=== PATIENT | female | born 1965 | race African-American/Black ===

== ENCOUNTER 2017-09-23 04:47 | Inpatient (IN) | payer MEDICARE, OTHER ==
[~2017-09-23] VITALS: Ht 165.1 cm; Wt 158.8 kg
[2017-09-23] MEDS ORDERED: Morphine Sulfate 2mg/ml Inj(IV/IM USE ONLY) IVP ONE (05:00)
[2017-09-23] MEDS ORDERED: Pantoprazole Inj IV ONE (05:00)
[2017-09-23] MEDS ORDERED: HYDRALAZINE HCL10 MG ORAL (05:04)
[2017-09-23] MEDS ORDERED: ACETAMINOPHEN325 M1 ORAL (05:04)
[2017-09-23] MEDS ORDERED: HUMALOG100 UNIT/4 SUBQ (05:09)
[2017-09-23] MEDS ORDERED: ZONEGRAN100 MG ORAL (05:09)
[2017-09-23] MEDS ORDERED: NORCO 5-325 TA1 EACH ORAL (05:09)
[2017-09-23] MEDS ORDERED: LEVETIRACETAM750 MG ORAL (05:09)
[2017-09-23] MEDS ORDERED: ZOFRAN4 M3 ORAL (05:09)
--- NOTE | 2017-09-23 05:20 | Emergency Room Report ---
History of Present Illness General Chief Complaint: Vomiting Source: Patient, EMS Present Illness HPI Patient was discharged from the hospital for right femur fracture. She was at [facility] and apparently had coffee-ground emesis at this evening. Paramedics were summoned. The patient denies any chest pain, abdominal pain. She denies melena hematochezia. She states she's not sure if she is anemic. She has previous ulcers. According to her records she does have a history of anemia - September 21 hgb was 8.1. There is some handwritten note suggesting pulmonary embolus however we cannot find if she is on anticoagulation at this time and this is doubtful. The patient is a diabetic on insulin. The patient complains about pain in her right hip area. Pain reported 10/10, aching, worse with movement, radiation towards knee and also towards back. Morbidly obese. Allergies: Coded Allergies: No Known Allergies (Verified , 11/20/06) Patient History Past Medical History: see triage record Social History: Denies: smoking Social History Narrative [facility] Reviewed Nursing Documentation: PMH: Agreed; PSxH: Agreed Nursing Documentation-PMH Hx Hypertension: Yes Hx Diabetes: Yes Hx Seizures: Yes Review of Systems All Other Systems: negative except mentioned in HPI Physical Exam Vital Signs Date Time Temp Pulse Resp B/P (MAP) Pulse Ox O2 Delivery O2 Flow Rate FiO2 09/23/17 04:48 98.4 86 16 128/72 98 Room Air 98.4 Sp02 EP Interpretation: reviewed, normal General Appearance: no apparent distress, obese, Chronically Ill Head: normocephalic Eyes: bilateral eye PERRL, bilateral eye conjunctivae pale ENT: moist mucus membranes Neck: supple Respiratory: lungs clear, normal breath sounds Cardiovascular #1: edema - bilat Cardiovascular #2: 2+ radial (R) Gastrointestinal: normal bowel sounds, non tender, overweight Genitourinary: no CVA tenderness Musculoskeletal: no calf tenderness, tender - R hip area Neurologic: alert, DTRs symmetric, no Babinski, motor weakness, oriented - X2 Psychiatric: depressed affect Skin: normal inspection, warm/dry Medical Decision Making Diagnostic Impression: Primary Impression: Upper gastrointestinal bleed Additional Impressions: Morbid obesity UTI (urinary tract infection) Qualified Codes: N39.0 - Urinary tract infection, site not specified ER Course Patient presents with coffee-ground emesis and pallor. Differential includes upper GI bleed, gastritis, ulcer, esophagitis amongst others. The patient is quite pale but not tachycardic. Patient was evaluated with EKG, chest x-ray and labs. She'll be treated with Zofran and Protonix. She'll also receive gentle IV hydration. She will also be treated for pain in her hip. EKG without injury. CXR no infiltrates. CBC with leukocytosis and anemia ( though higher than prior). CMP essentially unremarkable. UA with pyuria. Patient treated with gentle hydration. No need for emergent transfusion. Antibiotics requested to be ordered by PMD. Pain improved. No more vomiting. Admit med Dr. Dietrich. Laboratory Tests Test 09/23/17 05:18 09/23/17 05:58 09/24/17 03:37 White Blood Count 17.0 K/UL (4.8-10.8) H 21.1 K/UL (4.8-10.8) H Red Blood Count 3.49 M/UL (4.20-5.40) L 3.36 M/UL (4.20-5.40) L Hemoglobin 9.5 G/DL (12.0-16.0) L 8.9 G/DL (12.0-16.0) L Hematocrit 30.3 % (37.0-47.0) L 29.3 % (37.0-47.0) L Mean Corpuscular Volume 87 FL (80-99) 87 FL (80-99) Mean Corpuscular Hemoglobin 27.2 PG (27.0-31.0) 26.5 PG (27.0-31.0) L Mean Corpuscular Hemoglobin Concent 31.4 G/DL (32.0-36.0) L 30.4 G/DL (32.0-36.0) L Red Cell Distribution Width 13.0 % (11.6-14.8) 13.3 % (11.6-14.8) Platelet Count 425 K/UL (150-450) 370 K/UL (150-450) Mean Platelet Volume 5.0 FL (6.5-10.1) L 5.0 FL (6.5-10.1) L Neutrophils (%) (Auto) % (45.0-75.0) % (45.0-75.0) Lymphocytes (%) (Auto) % (20.0-45.0) % (20.0-45.0) Monocytes (%) (Auto) % (1.0-10.0) % (1.0-10.0) Eosinophils (%) (Auto) % (0.0-3.0) % (0.0-3.0) Basophils (%) (Auto) % (0.0-2.0) % (0.0-2.0) Prothrombin Time 11.9 SEC (9.30-11.50) H Prothrombin Time INR 1.1 (0.9-1.1) PTT 29 SEC (23-33) Sodium Level 139 MMOL/L (136-145) 139 MMOL/L (136-145) Potassium Level 3.6 MMOL/L (3.5-5.1) 3.3 MMOL/L (3.5-5.1) L Chloride Level 100 MMOL/L (98-107) 101 MMOL/L (98-107) Carbon Dioxide Level 31 MMOL/L (21-32) 30 MMOL/L (21-32) Anion Gap 8 mmol/L (5-15) 8 mmol/L (5-15) Blood Urea Nitrogen 10 mg/dL (7-18) 10 mg/dL (7-18) Creatinine 0.7 MG/DL (0.55-1.30) 0.6 MG/DL (0.55-1.30) Estimate Glomerular Filtration Rate > 60 mL/min (>60) > 60 mL/min (>60) Glucose Level 107 MG/DL (74-106) H 70 MG/DL (74-106) L Calcium Level 9.0 MG/DL (8.5-10.1) 8.9 MG/DL (8.5-10.1) Total Bilirubin 0.6 MG/DL (0.2-1.0) Aspartate Amino Transferase (AST) 54 U/L (15-37) H Alanine Aminotransferase (ALT) 46 U/L (12-78) Alkaline Phosphatase 97 U/L (46-116) Troponin I 0.000 ng/mL (0.000-0.056) Total Protein 7.4 G/DL (6.4-8.2) Albumin 2.2 G/DL (3.4-5.0) L Globulin 5.2 g/dL Albumin/Globulin Ratio 0.4 (1.0-2.7) L Lipase 191 U/L (73-393) Urine Color Yellow Urine Appearance Slightly cloudy Urine pH 8 (4.5-8.0) Urine Specific [place] 1.010 (1.005-1.035) Urine Protein 2+ (NEGATIVE) H Urine Glucose (UA) Negative (NEGATIVE) Urine Ketones 3+ (NEGATIVE) H Urine Occult Blood Negative (NEGATIVE) Urine Nitrite Negative (NEGATIVE) Urine Bilirubin 1+ (NEGATIVE) H Urine Ictotest Negative Urine Urobilinogen 12 MG/DL (0.0-1.0) H Urine Leukocyte Esterase 3+ (NEGATIVE) H Urine RBC 0-2 /HPF (0 - 2) Urine WBC 10-15 /HPF (0 - 2) H Urine Squamous Epithelial Cells Many /LPF (NONE/OCC) H Urine Bacteria Few /HPF (NONE) Differential Total Cells Counted 100 Neutrophils % (Manual) 84 % (45-75) H Lymphocytes % (Manual) 8 % (20-45) L Monocytes % (Manual) 7 % (1-10) Eosinophils % (Manual) 0 % (0-3) Basophils % (Manual) 0 % (0-2) Band Neutrophils 1 % (0-8) Platelet Estimate Adequate Platelet Morphology Normal Hypochromasia 1+ EKG Diagnostic Results Rate: normal Rhythm: NSR ST Segments: no acute changes Rhythm Strip Diag. Results EP Interpretation: yes Rhythm: NSR, no PVC's, no ectopy Chest X-Ray Diagnostic Results Chest X-Ray Diagnostic Results : Chest X-Ray Ordered: Yes # of Views/Limited/Complete: 1 View Indication: Other EP Interpretation: Yes Interpretation: no pneumothorax, other - increased le R with L effusion Impression: Other Electronically Signed by: Electronically signed by Dev Perkins MD Last Vital Signs Date Time Temp Pulse Resp B/P (MAP) Pulse Ox O2 Delivery O2 Flow Rate FiO2 09/24/17 09:01 209.7 87 18 100 09/24/17 09:00 127/60 Nasal Cannula 3 Status: improved Disposition: ADMITTED INPATIENT Condition: Serious Dev Perkins M.D. Sep 23, 2017 05:19
[2017-09-23 05:58] LABS: HEMATOCRIT 30.3 % (37.0-47.0); HEMOGLOBIN 9.5 G/DL (12.0-16.0); MEAN CORPUSCULAR VOLUME 87 FL (80-99); PLATELET COUNT 425 K/UL (150-450); RED BLOOD COUNT 3.49 M/UL (4.20-5.40)
[2017-09-23 06:08] LABS: ANION GAP 8 mmol/L (5-15); BLOOD UREA NITROGEN 10 mg/dL (7-18); CARBON DIOXIDE 31 MMOL/L (21-32); CHLORIDE 100 MMOL/L (98-107); CREATININE 0.7 MG/DL (0.55-1.30); POTASSIUM 3.6 MMOL/L (3.5-5.1); SODIUM 139 MMOL/L (136-145)
[2017-09-23 06:12] LABS: ALANINE AMINOTRANSFERASE 46 U/L (12-78); ALBUMIN 2.2 G/DL (3.4-5.0); ALBUMIN/GLOBULIN RATIO 0.4 (1.0-2.7); ALKALINE PHOSPHATASE 97 U/L (46-116); ASPARTATE AMINO TRANSFERASE 54 U/L (15-37); BILIRUBIN,TOTAL 0.6 MG/DL (0.2-1.0); INR 1.1 (0.9-1.1)
[2017-09-23 06:14] VITALS: BP 107/54
[2017-09-23 06:46] LABS: APPEARANCE,URINE SLIGHTLY CLOUDY; BILIRUBIN, URINE 1+ (NEGATIVE); GLUCOSE, URINE (UA) NEGATIVE (NEGATIVE); KETONES,URINE 3+ (NEGATIVE); LEUKOCYTE ESTERASE ,URINE 3+ (NEGATIVE); NITRITE,URINE NEGATIVE (NEGATIVE); PH,URINE 8 (4.5-8.0); PROTEIN,URINE 2+ (NEGATIVE); UROBILINOGEN,URINE 12 MG/DL (0.0-1.0)
[2017-09-23 07:24] LABS: COLOR,URINE YELLOW
[2017-09-23 09:00] VITALS: BP 103/53
[2017-09-23] MEDS ORDERED: Norco 5mg/325mg tab ORAL PRN (09:30)
[2017-09-23] MEDS: NovoLOG Insulin Flexpen SUBQ SCH ×3 (11:30→21:00)
[2017-09-23 12:00] VITALS: BP 115/59
--- NOTE | 2017-09-23 14:04 | Cardiology Report ---
APPROVED REPORT EKG Measurement Heart [id number] Normal sinus rhythm Nonspecific T wave abnormality Abnormal ECG
[2017-09-23] MEDS: Piperacillin/Tazobactam 3.375 GM in D5W 110 ML IV SCH ×2 (14:35→21:35)
--- NOTE | 2017-09-23 16:41 | General Progress Note ---
Assessment/Plan Assessment/Plan GI CONSULT Dictated Will d/w family and schedule for am EGD Thank you Raman Puentes MD Subjective Allergies: Coded Allergies: No Known Allergies (Verified , 11/20/06) Objective Last 24 Hour Vital Signs Date Time Temp Pulse Resp B/P (MAP) Pulse Ox O2 Delivery O2 Flow Rate FiO2 09/23/17 16:02 94 09/23/17 16:00 Nasal Cannula 3.0 09/23/17 12:00 98.2 88 115/59 (77) 100 98.2 09/23/17 12:00 Nasal Cannula 3.0 09/23/17 12:00 88 09/23/17 09:05 Nasal Cannula 3.0 09/23/17 09:00 99.7 92 103/53 (70) 24 99.7 09/23/17 08:42 99.0 87 18 110/66 100 Nasal Cannula 3.0 99.9 09/23/17 06:21 99.9 09/23/17 06:14 99.9 91 21 107/54 100 Room Air 99.9 09/23/17 05:32 98.4 09/23/17 04:48 98.4 86 16 128/72 98 Room Air 98.4 Intake and Output 09/22/17 09/23/17 19:00 07:00 Output Total 40 ml Balance -40 ml Output Urine Total 40 ml Laboratory Tests 09/23/17 05:18: White Blood Count 17.0H, Red Blood Count 3.49L, Hemoglobin 9.5L, Hematocrit 30.3L, Mean Corpuscular Volume 87, Mean Corpuscular Hemoglobin 27.2, Mean Corpuscular Hemoglobin Concent 31.4L, Red Cell Distribution Width 13.0, Platelet Count 425, Mean Platelet Volume 5.0L, Neutrophils (%) (Auto) , Lymphocytes (%) (Auto) , Monocytes (%) (Auto) , Eosinophils (%) (Auto) , Basophils (%) (Auto) , Prothrombin Time 11.9H, Prothromb Time International Ratio 1.1, Activated Partial Thromboplast Time 29, Sodium Level 139, Potassium Level 3.6, Chloride Level 100, Carbon Dioxide Level 31, Anion Gap 8, Blood Urea Nitrogen 10, Creatinine 0.7, Estimat Glomerular Filtration Rate > 60, Glucose Level 107H, Calcium Level 9.0, Total Bilirubin 0.6, Aspartate Amino Transf (AST/ SGOT) 54H, Alanine Aminotransferase (ALT/SGPT) 46, Alkaline Phosphatase 97, Troponin I 0.000, Total Protein 7.4, Albumin 2.2L, Globulin 5.2, Albumin/ Globulin Ratio 0.4L, Lipase 191 09/23/17 05:58: Urine Color Yellow, Urine Appearance Slightly cloudy, Urine pH 8, Urine Specific [place] 1.010, Urine Protein 2+H, Urine Glucose (UA) Negative, Urine Ketones 3+H, Urine Occult Blood Negative, Urine Nitrite Negative, Urine Bilirubin 1+H, Urine Ictotest Negative, Urine Urobilinogen 12H, Urine Leukocyte Esterase 3+H, Urine RBC 0-2, Urine WBC 10-15H, Urine Squamous Epithelial Cells ManyH, Urine Bacteria Few Height (Feet): 5 Height (Inches): 10.00 Weight (Pounds): 350 Gallo Puentes MD Sep 23, 2017 16:41
[2017-09-23] MEDS: Pantoprazole Inj IVP SCH (17:00)
[2017-09-23 20:00] VITALS: BP 102/67
--- NOTE | 2017-09-23 22:15 | Consultation ---
DATE OF CONSULTATION: 09/23/2017 INFECTIOUS DISEASES CONSULTATION This consultation has been done on behalf of Dr. Ady Campuzano. REFERRING PHYSICIAN: Colt Dietrich M.D. HISTORY OF PRESENTING ILLNESS: This is a 51-year-old lady with history of right femur fracture, who started having coffee-grounds emesis. She was found to have some anemia. She also had a history of pulmonary embolism. An Infectious Disease consultation has been obtained for antibiotics. PAST MEDICAL HISTORY: 1. History of diabetes. 2. Hypertension. 3. Seizures. 4. Pulmonary embolism. 5. Right femur fracture. MEDICATIONS: As an inpatient, she is on zonisamide, Keppra, insulin, Tylenol, hydralazine, [place], and Zofran. ALLERGIES: No known drug allergies. SOCIAL HISTORY: No history of smoking, alcohol, or drug use. FAMILY HISTORY: Unknown. REVIEW OF SYSTEMS: Unable to obtain currently. PHYSICAL EXAMINATION: VITAL SIGNS: Temperature of 99.7, T-max of 99.9, pulse of 92, respiratory rate of 18, blood pressure 103/53, and O2 saturation of 100%. HEENT: Pupils equally reactive to light and accommodation. Mouth appears clean without thrush. NECK: Supple. No adenopathy. No JVD. CARDIOVASCULAR: Regular rate and rhythm. No murmurs. LUNGS: Clear to auscultation bilaterally. No crackles. No wheezes. ABDOMEN: Soft and nontender. No organomegaly. EXTREMITIES: No cyanosis, no clubbing, no edema. LABORATORY AND DIAGNOSTIC DATA: White count 17, hemoglobin 9.5, hematocrit 30.3, MCV 87, and platelet count of 425,000. Sodium 139, potassium 3.6, chloride 100, bicarb 31, BUN 10, creatinine 0.7, glucose 107, and calcium 9. Total bilirubin 0.6. AST 54, ALT 46, and alkaline phosphatase 97. Total protein 7.4. Albumin 2.2. Lipase of 191. UA is showing 10 to 15 white cells. ASSESSMENT: 1. This is a 51-year-old lady with history of diabetes, hypertension, seizures, pulmonary embolism, and right femur fracture, who comes in with leukocytosis and coffee-ground emesis, would be concerned regarding an aspiration pneumonia. 2. Diabetes. 3. Hypertension. 4. Seizures. 5. Urinary tract infection. PLAN: 1. We will start the patient on Zosyn. 2. We will order sputum for Gram stain and culture. 3. We will order urine cultures. 4. We will follow up cultures and adjust antibiotics accordingly. I would like to thank, Dr. Dietrich, for this consultation. Aida Eddy M.D. DR: ROD JOB#: [id number] CC: Colt Dietrich M.D.; Fax#: [phone]
[2017-09-23] MEDS: Norco 5mg/325mg tab ORAL PRN (22:28)
[2017-09-23 23:42] VITALS: BP 109/58
[2017-09-24] VITALS (8 sets, daily range): BP systolic 95–134; BP diastolic 45–70
--- NOTE | 2017-09-24 01:45 | Consultation ---
DATE OF CONSULTATION: 09/23/2017 GASTROLOGY CONSULTATION CHIEF COMPLAINT: I was asked to see this patient by Dr. Colt Dietrich for evaluation of gastrointestinal bleeding. HISTORY OF PRESENT ILLNESS: The patient is a 51-year-old woman, who is debilitated from a custodial, who was brought in for coffee-ground emesis overnight. The patient is somewhat poorly informative and denies much complaints. However, she was observed to have some coffee-grounds emesis and was admitted. She is anemic, but the duration is unknown. She states that she has never had an endoscopy or colonoscopy. There are some old records stating that she had some degree of anemia in the past. She has morbid obesity. PAST MEDICAL HISTORY: History of obesity, diabetes, anemia, possible history of pulmonary embolism, and bed-bound state. MEDICATIONS: Listed in the chart. ALLERGIES: Noted. FAMILY HISTORY: Noncontributory. SOCIAL HISTORY: The patient resides in a custodial. She denies smoking or drinking. REVIEW OF SYSTEMS: Otherwise negative. PHYSICAL EXAMINATION: GENERAL: A debilitated woman, seen in her room. HEENT: Normocephalic and atraumatic. Sclerae anicteric. Oropharynx clear. Dentition is poor. NECK: Supple. CHEST: Clear to auscultation. CARDIOVASCULAR: Revealed a regular rate. ABDOMEN: Soft and obese with good bowel sounds. EXTREMITIES: Revealed some edema NEUROLOGIC: Grossly nonfocal. LABORATORY DATA: Noted. ASSESSMENT: This patient presents with upper gastrointestinal bleeding. The differential diagnoses would include gastroesophageal reflux disease versus peptic ulcer disease versus gastritis. Other possibilities could be entertained. The patient should be observed closely while keeping her NPO. She will be undergoing endoscopy tomorrow to evaluate the site of gastrointestinal bleeding. Her blood count should be followed and should be transfused as needed. The proton pump inhibitor was written. RECOMMENDATIONS: Per above discussion and per orders written in the chart. Thank you for asking me to participate in the care of this patient. Gallo Puentes M.D. DR: RAY JOB#: [id number] CC: MIRIAM
[2017-09-24 04:56] LABS: HEMATOCRIT 29.3 % (37.0-47.0); HEMOGLOBIN 8.9 G/DL (12.0-16.0); MEAN CORPUSCULAR VOLUME 87 FL (80-99); PLATELET COUNT 370 K/UL (150-450); RED BLOOD COUNT 3.36 M/UL (4.20-5.40); RED CELL DISTRIBUTION WIDTH 13.3 % (11.6-14.8); WHITE BLOOD COUNT 21.1 K/UL (4.8-10.8)
[2017-09-24 05:08] LABS: ANION GAP 8 mmol/L (5-15); BLOOD UREA NITROGEN 10 mg/dL (7-18); CALCIUM 8.9 MG/DL (8.5-10.1); CARBON DIOXIDE 30 MMOL/L (21-32); CHLORIDE 101 MMOL/L (98-107); CREATININE 0.6 MG/DL (0.55-1.30); POTASSIUM 3.3 MMOL/L (3.5-5.1); SODIUM 139 MMOL/L (136-145)
[2017-09-24] MEDS: Piperacillin/Tazobactam 3.375 GM in D5W 110 ML IV SCH ×3 (06:29→21:57)
[2017-09-24] MEDS: NovoLOG Insulin Flexpen SUBQ SCH ×4 (06:29→21:00)
[2017-09-24] MEDS ORDERED: Labetalol 5mg/ml 20ml vial IV PRN ×2 (07:45→08:00)
[2017-09-24] MEDS ORDERED: fentaNYL 100 mcg/2 mL IV PRN ×2 (07:45→08:00)
[2017-09-24] MEDS ORDERED: Midazolam 2mg/2ml Inj IVP PRN ×2 (07:45→08:00)
[2017-09-24] MEDS ORDERED: Atropine Inj 1mg/10ml Syr IV PRN ×2 (07:45→08:00)
[2017-09-24] MEDS ORDERED: DiphenhydrAMINE 50mg/ml Inj IVP PRN ×2 (07:45→08:00)
--- NOTE | 2017-09-24 07:46 | Anethesia Preoperative Eval ---
Anesthesia Pre-op PMH/ROS General Date of Evaluation: Sep 24, 2017 Time of Evaluation: 07:43 Anesthesiologist: diana ASA Score: ASA 3 Mallampati Score Class I : Soft palate, uvula, fauces, pillars visible Class II: Soft palate, uvula, fauces visible Class III: Soft palate, base of uvula visible Class IV: Only hard plate visible Mallampati Classification: Class II Surgeon: ella Diagnosis: upper gi bleed Surgical Procedure: egd Anesthesia History: none Family History: no anesthesia problems Allergies: Coded Allergies: No Known Allergies (Verified , 11/20/06) Medications: see eMAR Past Medical History Cardiovascular: Reports: HTN Gastrointestinal/Genitourinary: Reports: other - ugib, uti Neurologic/Psychiatric: Reports: other - seizure disorder, confusion Endocrine: Reports: DM Other: obesity Anesthesia Pre-op Phys. Exam Physician Exam Last Vital Signs Date Time Temp Pulse Resp B/P (MAP) Pulse Ox O2 Delivery O2 Flow Rate FiO2 09/24/17 04:00 86 09/24/17 04:00 Nasal Cannula 3.0 09/24/17 04:00 98.4 16 118/57 (77) 100 98.4 Constitutional: NAD Neurologic: CN 2-12 intact Cardiovascular: RRR Respiratory: CTA Gastrointestinal: S/NT/ND Airway Exam Mallampati Score: Class II MO: full Neck: short TMD: 2fb ROM: limited Teeth: missing Anesthesia Pre-op A/P Labs Hematology Test 09/24/17 03:37 White Blood Count 21.1 K/UL (4.8-10.8) H Red Blood Count 3.36 M/UL (4.20-5.40) L Hemoglobin 8.9 G/DL (12.0-16.0) L Hematocrit 29.3 % (37.0-47.0) L Mean Corpuscular Volume 87 FL (80-99) Mean Corpuscular Hemoglobin 26.5 PG (27.0-31.0) L Mean Corpuscular Hemoglobin Concent 30.4 G/DL (32.0-36.0) L Red Cell Distribution Width 13.3 % (11.6-14.8) Platelet Count 370 K/UL (150-450) Mean Platelet Volume 5.0 FL (6.5-10.1) L Neutrophils (%) (Auto) % (45.0-75.0) Lymphocytes (%) (Auto) % (20.0-45.0) Monocytes (%) (Auto) % (1.0-10.0) Eosinophils (%) (Auto) % (0.0-3.0) Basophils (%) (Auto) % (0.0-2.0) Differential Total Cells Counted 100 Neutrophils % (Manual) 84 % (45-75) H Lymphocytes % (Manual) 8 % (20-45) L Monocytes % (Manual) 7 % (1-10) Eosinophils % (Manual) 0 % (0-3) Basophils % (Manual) 0 % (0-2) Band Neutrophils 1 % (0-8) Platelet Estimate Adequate Platelet Morphology Normal Hypochromasia 1+ Chemistry Test 09/24/17 03:37 Sodium Level 139 MMOL/L (136-145) Potassium Level 3.3 MMOL/L (3.5-5.1) L Chloride Level 101 MMOL/L (98-107) Carbon Dioxide Level 30 MMOL/L (21-32) Anion Gap 8 mmol/L (5-15) Blood Urea Nitrogen 10 mg/dL (7-18) Creatinine 0.6 MG/DL (0.55-1.30) Estimat Glomerular Filtration Rate > 60 mL/min (>60) Glucose Level 70 MG/DL (74-106) L Calcium Level 8.9 MG/DL (8.5-10.1) Risk Assessment & Plan Assessment: asa3 Plan: mac Status Change Before Surgery: No Pre-Antibiotics Drug: Michelle Ignacio MD Sep 24, 2017 07:46
[2017-09-24] MEDS ORDERED: D5 1/2NS 1000ml IV ONE (08:00)
[2017-09-24] MEDS ORDERED: Propofol 200mg/20ml IV ONE (08:00)
[2017-09-24] MEDS ORDERED: Lidocaine 1% MPF 10mg/ml 5ml ONE (08:00)
--- NOTE | 2017-09-24 08:07 | General Progress Note ---
Assessment/Plan Assessment/Plan Assessment - UGIB - Anemia - Mild transaminitis, likely fatty change - obesity Recommendation - check abd ultrasound - follow LFT - EGD today - PPI - follow labs Subjective Allergies: Coded Allergies: No Known Allergies (Verified , 11/20/06) Subjective Feels OK No new symptoms discussed with family re EGD H&H w/o significant change Objective Last 24 Hour Vital Signs Date Time Temp Pulse Resp B/P (MAP) Pulse Ox O2 Delivery O2 Flow Rate FiO2 09/24/17 04:00 86 09/24/17 04:00 Nasal Cannula 3.0 09/24/17 04:00 98.4 88 16 118/57 (77) 100 98.4 09/24/17 00:00 Nasal Cannula 3.0 09/24/17 00:00 93 09/23/17 23:42 99.2 94 16 109/58 (75) 99 99.2 09/23/17 23:01 100 09/23/17 20:10 98 09/23/17 20:00 98.2 70 102/67 (79) 89 98.2 09/23/17 20:00 87 09/23/17 19:30 Nasal Cannula 3.0 09/23/17 16:02 94 09/23/17 16:00 Nasal Cannula 3.0 09/23/17 12:00 98.2 88 115/59 (77) 100 98.2 09/23/17 12:00 Nasal Cannula 3.0 09/23/17 12:00 88 09/23/17 09:05 Nasal Cannula 3.0 09/23/17 09:00 99.7 92 103/53 (70) 24 99.7 09/23/17 08:42 99.0 87 18 110/66 100 Nasal Cannula 3.0 99.9 Intake and Output 09/23/17 09/24/17 19:00 07:00 Intake Total 482.5 ml 685.0 ml Output Total 350 ml 400 ml Balance 132.5 ml 285.0 ml Intake IV Total 482.5 ml 685.0 ml Output Urine Total 350 ml 400 ml Laboratory Tests 09/24/17 03:37: White Blood Count 21.1H, Red Blood Count 3.36L, Hemoglobin 8.9L, Hematocrit 29.3L, Mean Corpuscular Volume 87, Mean Corpuscular Hemoglobin 26.5L, Mean Corpuscular Hemoglobin Concent 30.4L, Red Cell Distribution Width 13.3, Platelet Count 370, Mean Platelet Volume 5.0L, Neutrophils (%) (Auto) , Lymphocytes (%) (Auto) , Monocytes (%) (Auto) , Eosinophils (%) (Auto) , Basophils (%) (Auto) , Differential Total Cells Counted 100, Neutrophils % ( Manual) 84H, Lymphocytes % (Manual) 8L, Monocytes % (Manual) 7, Eosinophils % ( Manual) 0, Basophils % (Manual) 0, Band Neutrophils 1, Platelet Estimate Adequate, Platelet Morphology Normal, Hypochromasia 1+, Sodium Level 139, Potassium Level 3.3L, Chloride Level 101, Carbon Dioxide Level 30, Anion Gap 8, Blood Urea Nitrogen 10, Creatinine 0.6, Estimat Glomerular Filtration Rate > 60 , Glucose Level 70L, Calcium Level 8.9 Height (Feet): 5 Height (Inches): 5.00 Weight (Pounds): 350 Objective WDWN NCAT supple CTA RRR abd soft obesity (+) edema Gallo Puentes MD Sep 24, 2017 08:07
--- NOTE | 2017-09-24 08:08 | Pre-Procedure Note/Attestation ---
Pre-Procedure Note/Attestation Complete Prior to Procedure Planned Procedure: not applicable Procedure Narrative: Endoscopy Indications for Procedure Pre-Operative Diagnosis: UGIB Attestation I attest that I discussed the nature of the procedure; its benefits; risks and complications; and alternatives (and the risks and benefits of such alternatives ), prior to the procedure, with the patient (or the patient's legal member service representative). I attest that, if there was a reasonable possibility of needing a blood transfusion, the patient (or the patient's legal member service representative) was given the [facility] standardized written summary, pursuant to the Yony Herbster Blood Safety Act ([place] Health and Safety Code # 1645, as amended). I attest that I re-evaluated the patient just prior to the surgery and that there has been no change in the patient's H&P, except as documented below: Gallo Puentes MD Sep 24, 2017 08:08
--- NOTE | 2017-09-24 08:15 | History and Physical Report ---
DATE OF ADMISSION: 09/23/2017 NOTE: "POOR AUDIO" HISTORY OF PRESENT ILLNESS: The patient is admitted for vomiting coffee-ground emesis at the intermediate 00:19 morbid obesity, is admitted for gastrointestinal bleed. The patient denies dizziness, nausea, half lethargic, although opens eyes to noxious stimuli. Denies 00:41 pain. Denies nausea, diarrhea, or abdominal pain. Does report vomiting. Cannot get reliable history from the patient. PAST MEDICAL HISTORY: Hypertension, NIDDM, seizure disorder, obesity, and GERD. PAST SURGICAL HISTORY: 01:01. ALLERGIES: No known allergies. MEDICATIONS: Tylenol, hydralazine, insulin, Keppra, and Zonegran. FAMILY HISTORY: Noncontributory. SOCIAL HISTORY: Denies smoking or illicit drugs. REVIEW OF SYSTEMS: HEENT: Denies headaches. RESPIRATORY: Denies shortness of breath. Denies cough. CARDIOVASCULAR: Denies chest pain. GASTROINTESTINAL: Did have nausea and vomiting x1. Denies diarrhea. Denies abdominal pain. EXTREMITIES: Denies pain in the lower extremities. NEUROLOGIC: Denies change in vision or speech pattern. PHYSICAL EXAMINATION: VITAL SIGNS: Temperature is 99 degrees, blood pressure is 87, and blood pressure 110/66. HEENT: PERRLA. NECK: Supple. No lymphadenopathy. CHEST: Clear to auscultation. CARDIOVASCULAR: Regular rate and rhythm. GASTROINTESTINAL: Soft, distended. Positive bowel sounds. No organomegaly. Abdomen is soft. EXTREMITIES: 01:42 edema. Morbidly obese. Moves all four extremities. NEUROLOGIC: Generalized weakness. LABORATORY DATA: WBC of 17, hemoglobin 9.5, and platelets of 425. Sodium 139, potassium 3.6, chloride 100, BUN of 10, creatinine 0.7, and glucose 107. Troponin is negative. ASSESSMENT AND PLAN: 02:00, coffee-grounds emesis. 02:04 Dr. Ady Campuzano GI bleed and leukocytosis coming from. The patient will need endoscopy 02:14. Colt Dietrich M.D. DR: FARIHA JOB#: [id number] CC:
[2017-09-24] MEDS ORDERED: Lidocaine 1% Plain 30 ml INJ PRN (08:45)
[2017-09-24] MEDS ORDERED: Heparin 2000 units/Ns 1000ml INJ PRN (08:45)
[2017-09-24] MEDS ORDERED: HydrALAZINE 10mg Tab ORAL PRN (09:00)
--- NOTE | 2017-09-24 09:00 | Immediate Post-Op Evaluation ---
Immediate Post-Op Evalulation Immediate Post-Op Evalulation Procedure: egd attempted Date of Evaluation: Sep 24, 2017 Time of Evaluation: 08:52 IV Fluids: D5/0.45ns 50ml Blood Products: none Estimated Blood Loss: negligible Blood Pressure Systolic: 105 Blood Pressure Diastolic: 70 Pulse Rate: 88 Respiratory Rate: 18 O2 Sat by Pulse Oximetry: 100 Temperature (Fahrenheit): 98.7 Pain Score (1-10): 0 Nausea: No Vomiting: No Complications unable to induce/sedate patient secondary to positional iv access, even after titrating 200ml propofol. Patient Status: awake, reacts, patent Hydration Status: adequate Drug: Michelle Ignacio MD Sep 24, 2017 09:00
--- NOTE | 2017-09-24 09:01 | 48 Hour Post Anesthesia Eval ---
Post Anesthesia Evaluation Procedure: egd attempted Date of Evaluation: Sep 24, 2017 Time of Evaluation: 09:00 Blood Pressure Systolic: 134 0: 69 Pulse Rate: 87 Respiratory Rate: 18 Temperature (Fahrenheit): 98.7 O2 Sat by Pulse Oximetry: 100 Airway: patent Nausea: No Vomiting: No Pain Intensity: 0 Hydration Status: adequate Cardiopulmonary Status: stable Mental Status/LOC: patient returned to baseline Post-Anesthesia Complications: none Follow-up care needed: N/A Michelle Syed MD Sep 24, 2017 09:01
[2017-09-24] MEDS: Pantoprazole Inj IVP SCH (09:22)
--- NOTE | 2017-09-24 16:03 | Diagnostic Imaging Report ---
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 The left upper extremity was prepped with alcohol. All elements of maximal sterile barrier technique were followed including usage of a cap, mask, sterile gown, sterile gloves, hand hygiene and a large sterile sheet. Sonographic evaluation of the upper extremity was performed demonstrating a patent and compressible basilic vein. Access was obtained under real-time ultrasound guidance (with utilization of sterile gel and sterile probe cover) and digital image was saved and archived. An .018 wire was introduced. Needle exchanged for a 5 Bulgarian peel-away sheath. Measurements were obtained. A 5 Bulgarian dual-lumen Power PICC line catheter was cut to 45 cm and introduced over the wire. Peel-away sheath and wire were removed.Catheter was secured to the skin using 2-0 Prolene suture. Both ports aspirate and flush easily. Post procedure chest x-ray demonstrates good position of the PICC line catheter within the innominate vein/SVC junction. Impression: Successful placement of an upper extremity PICC line catheter
[2017-09-24 17:44] LABS: FERRITIN 875 NG/ML (8-388); LACTATE DEHYDROGENASE 234 U/L (81-234)
[2017-09-24 18:03] LABS: % IRON SATURATION 11 % (15-50); IRON 12 ug/dL (50-175); TOTAL IRON BINDING CAPACITY 113 ug/dL (250-450)
[2017-09-24] MEDS: Dyna-Hex 2% Top Sol 2oz TOPIC SCH (21:49)
[2017-09-24] MEDS: D5 1/2NS w/KCl 20mEq 1,000 ML IV SCH (21:49)
[2017-09-24] MEDS: Norco 5mg/325mg tab ORAL PRN (21:54)
--- NOTE | 2017-09-24 21:59 | General Progress Note ---
Assessment/Plan Problem List: (1) Morbid obesity ICD Codes: E66.01 - Morbid (severe) obesity due to excess calories SNOMED: 526829982 (2) Upper gastrointestinal bleed ICD Codes: K92.2 - Gastrointestinal hemorrhage, unspecified SNOMED: 96702360 (3) UTI (urinary tract infection) ICD Codes: N39.0 - Urinary tract infection, site not specified SNOMED: 00106971 Qualifiers: Qualified Codes: N39.0 - Urinary tract infection, site not specified Status: progressing Assessment/Plan endoscopy per gi low k replace npo getting iv fluid obesity moniter for bleeding Subjective ROS Limited/Unobtainable: Yes Allergies: Coded Allergies: No Known Allergies (Verified , 11/20/06) Objective Last 24 Hour Vital Signs Date Time Temp Pulse Resp B/P (MAP) Pulse Ox O2 Delivery O2 Flow Rate FiO2 09/24/17 16:00 Nasal Cannula 3.0 09/24/17 16:00 97.9 86 19 116/59 (78) 100 97.9 09/24/17 15:19 86 09/24/17 12:15 97.9 86 18 101/58 (72) 99 97.9 09/24/17 12:00 Nasal Cannula 3.0 09/24/17 11:22 88 09/24/17 09:01 209.7 87 18 100 09/24/17 09:00 98.0 87 127/60 100 Nasal Cannula 3 98.0 09/24/17 09:00 209.7 88 18 100 09/24/17 08:50 87 134/69 100 Nasal Cannula 3 09/24/17 08:45 85 20 123/60 100 Nasal Cannula 3 09/24/17 08:40 98.7 88 18 105/70 100 Nasal Cannula 3 98.7 09/24/17 08:17 87 09/24/17 07:50 Nasal Cannula 3.0 09/24/17 04:00 86 09/24/17 04:00 Nasal Cannula 3.0 09/24/17 04:00 98.4 88 16 118/57 (77) 100 98.4 09/24/17 00:00 Nasal Cannula 3.0 09/24/17 00:00 93 09/23/17 23:42 99.2 94 16 109/58 (75) 99 99.2 09/23/17 23:01 100 Intake and Output 09/23/17 09/24/17 19:00 07:00 Intake Total 482.5 ml 685.0 ml Output Total 350 ml 400 ml Balance 132.5 ml 285.0 ml IV Total 482.5 ml 685.0 ml Output Urine Total 350 ml 400 ml Laboratory Tests 09/24/17 03:37: White Blood Count 21.1H, Red Blood Count 3.36L, Hemoglobin 8.9L, Hematocrit 29.3L, Mean Corpuscular Volume 87, Mean Corpuscular Hemoglobin 26.5L, Mean Corpuscular Hemoglobin Concent 30.4L, Red Cell Distribution Width 13.3, Platelet Count 370, Mean Platelet Volume 5.0L, Neutrophils (%) (Auto) , Lymphocytes (%) (Auto) , Monocytes (%) (Auto) , Eosinophils (%) (Auto) , Basophils (%) (Auto) , Differential Total Cells Counted 100, Neutrophils % ( Manual) 84H, Lymphocytes % (Manual) 8L, Monocytes % (Manual) 7, Eosinophils % ( Manual) 0, Basophils % (Manual) 0, Band Neutrophils 1, Platelet Estimate Adequate, Platelet Morphology Normal, Hypochromasia 1+, Reticulocyte Count 1.9, Sodium Level 139, Potassium Level 3.3L, Chloride Level 101, Carbon Dioxide Level 30, Anion Gap 8, Blood Urea Nitrogen 10, Creatinine 0.6, Estimat Glomerular Filtration Rate > 60, Glucose Level 70L, Calcium Level 8.9 09/24/17 16:50: Haptoglobin [Pending], Fibrinogen 541H, Iron Level 12L, Total Iron Binding Capacity 113L, Percent Iron Saturation 11L, Unsaturated Iron Binding 101L, Ferritin 875H, Lactate Dehydrogenase 234, Methylmalonic Acid [Pending], Folate 17.5, Thyroid Stimulating Hormone (TSH) 2.208 Height (Feet): 5 Height (Inches): 5.00 Weight (Pounds): 350 Respiratory/Chest: lungs clear Abdomen: soft Colt Dietrich MD Sep 24, 2017 21:59
--- NOTE | 2017-09-24 23:15 | Consultation ---
DATE OF CONSULTATION: 09/24/2017 HEMATOLOGY/ONCOLOGY CONSULTATION CONSULTING PHYSICIAN: Benito Garcia M.D. REQUESTING PHYSICIAN: Colt Dietrich M.D. REASON FOR CONSULTATION: Evaluation of anemia, coagulopathy, and leukocytosis. IDENTIFYING DATA: Dear Dr. Dietrich, The patient is a pleasant 51-year-old female with past medical history, which is significant for history of anemia, history of diabetes, hypertension, seizure disorder, and history of pulmonary embolism. At this time, the patient right femur fracture history as well, noted to be anemic. Hematology Service was consulted for further evaluation and treatment. PAST MEDICAL HISTORY: As noted above, diabetes, hypertension, seizure disorder, pulmonary embolism, and right femur fracture. ALLERGIES: No known drug allergies. MEDICATIONS: Keppra, insulin, zonisamide, hydralazine, [place], Zofran, and Tylenol. SOCIAL HISTORY: No alcohol, tobacco, or illicit drug use. REVIEW OF SYSTEMS: Difficult to obtain. The patient is altered. PHYSICAL EXAMINATION: VITAL SIGNS: Reviewed. GENERAL: No acute distress. LUNGS: Decreased breath sounds. CARDIOVASCULAR: Regular rate. No S3 or S4. ABDOMEN: Soft, nontender, and nondistended. EXTREMITIES: A 1+ edema. LABORATORY AND DIAGNOSTIC DATA: WBC 21,000, hemoglobin 8.9, hematocrit 29, and platelet count 187,000. Chemistry reviewed, BUN of 10 and creatinine 0.6. Prothrombin time of 11.9. ASSESSMENT AND RECOMMENDATIONS: 1. Anemia due to gastrointestinal bleed. Obtain anemia panel. Rule out GI bleed. Dr. Puentes, GI Service, consulted. 2. Coagulopathy. Rule out liver disease. The patient to undergo endoscopy. Very minor at this time. 3. Pulmonary embolism. Obtain duplex of lower extremities. Rule out blood clots of lower extremities. 4. Transaminitis disease. 5. Obesity. Recommend weight loss. I appreciate the consultation. Benito Garcia M.D. DR: JACIEL JOB#: [id number] CC:
[2017-09-25] VITALS (11 sets, daily range): BP systolic 96–139; BP diastolic 52–72
[2017-09-25 06:13] LABS: HEMATOCRIT 26.7 % (37.0-47.0); HEMOGLOBIN 8.3 G/DL (12.0-16.0); MEAN CORPUSCULAR VOLUME 87 FL (80-99); PLATELET COUNT 354 K/UL (150-450); RED BLOOD COUNT 3.08 M/UL (4.20-5.40); RED CELL DISTRIBUTION WIDTH 13.2 % (11.6-14.8); WHITE BLOOD COUNT 15.1 K/UL (4.8-10.8)
[2017-09-25] MEDS: Piperacillin/Tazobactam 3.375 GM in D5W 110 ML IV SCH (06:14)
[2017-09-25] MEDS: NovoLOG Insulin Flexpen SUBQ SCH ×4 (06:30→20:18)
[2017-09-25 06:33] LABS: ALANINE AMINOTRANSFERASE 45 U/L (12-78); ALBUMIN 1.9 G/DL (3.4-5.0); ALBUMIN/GLOBULIN RATIO 0.4 (1.0-2.7); ALKALINE PHOSPHATASE 89 U/L (46-116); ANION GAP 6 mmol/L (5-15); ASPARTATE AMINO TRANSFERASE 50 U/L (15-37); BILIRUBIN,TOTAL 0.4 MG/DL (0.2-1.0); BLOOD UREA NITROGEN 10 mg/dL (7-18); CALCIUM 8.8 MG/DL (8.5-10.1); CARBON DIOXIDE 33 MMOL/L (21-32); CHLORIDE 100 MMOL/L (98-107); CREATININE 0.6 MG/DL (0.55-1.30); POTASSIUM 3.3 MMOL/L (3.5-5.1); SODIUM 138 MMOL/L (136-145)
[2017-09-25] MEDS ORDERED: Labetalol 5mg/ml 20ml vial IV PRN (06:45)
[2017-09-25] MEDS ORDERED: Atropine Inj 1mg/10ml Syr IV PRN (06:45)
[2017-09-25] MEDS ORDERED: DiphenhydrAMINE 50mg/ml Inj IVP PRN (06:45)
[2017-09-25] MEDS ORDERED: Midazolam 2mg/2ml Inj IVP PRN (06:45)
[2017-09-25] MEDS ORDERED: fentaNYL 100 mcg/2 mL IV PRN (06:45)
--- NOTE | 2017-09-25 06:46 | Anethesia Preoperative Eval ---
Anesthesia Pre-op PMH/ROS General Date of Evaluation: Sep 25, 2017 Time of Evaluation: 06:42 Anesthesiologist: diana ASA Score: ASA 3 Mallampati Score Class I : Soft palate, uvula, fauces, pillars visible Class II: Soft palate, uvula, fauces visible Class III: Soft palate, base of uvula visible Class IV: Only hard plate visible Mallampati Classification: Class II Surgeon: ella Diagnosis: gibleed Surgical Procedure: egd Anesthesia History: none Social History: smoking - nonsmoker Family History: no anesthesia problems Allergies: Coded Allergies: No Known Allergies (Verified , 11/20/06) Medications: see eMAR Past Medical History Cardiovascular: Reports: HTN Pulmonary: Reports: other - chronic supplemental oxygen use Neurologic/Psychiatric: Reports: other - seizure disorder Endocrine: Reports: DM Hematology/Immune: Reports: anemia Musculoskeletal/Integumentary: Reports: other - hip fracture repair Other: obesity Anesthesia Pre-op Phys. Exam Physician Exam Last Vital Signs Date Time Temp Pulse Resp B/P (MAP) Pulse Ox O2 Delivery O2 Flow Rate FiO2 09/25/17 04:00 98.2 84 20 102/52 (69) 100 98.2 09/25/17 04:00 Nasal Cannula 3.0 Constitutional: NAD Neurologic: CN 2-12 intact Cardiovascular: RRR Respiratory: CTA Gastrointestinal: S/NT/ND Airway Exam Mallampati Score: Class II MO: limited Neck: short TMD: 2fb ROM: limited Teeth: missing Anesthesia Pre-op A/P Labs Hematology Test 09/24/17 16:50 09/25/17 04:00 Haptoglobin Pending White Blood Count 15.1 K/UL (4.8-10.8) H Red Blood Count 3.08 M/UL (4.20-5.40) L Hemoglobin 8.3 G/DL (12.0-16.0) L Hematocrit 26.7 % (37.0-47.0) L Mean Corpuscular Volume 87 FL (80-99) Mean Corpuscular Hemoglobin 26.8 PG (27.0-31.0) L Mean Corpuscular Hemoglobin Concent 30.9 G/DL (32.0-36.0) L Red Cell Distribution Width 13.2 % (11.6-14.8) Platelet Count 354 K/UL (150-450) Mean Platelet Volume 4.8 FL (6.5-10.1) L Neutrophils (%) (Auto) % (45.0-75.0) Lymphocytes (%) (Auto) % (20.0-45.0) Monocytes (%) (Auto) % (1.0-10.0) Eosinophils (%) (Auto) % (0.0-3.0) Basophils (%) (Auto) % (0.0-2.0) Neutrophils % (Manual) Pending Lymphocytes % (Manual) Pending Platelet Estimate Pending Platelet Morphology Pending Coagulation Test 09/24/17 16:50 Fibrinogen 541 mg/dL (200-400) H Chemistry Test 09/24/17 16:50 09/25/17 04:00 Iron Level 12 ug/dL (50-175) L Total Iron Binding Capacity 113 ug/dL (250-450) L Percent Iron Saturation 11 % (15-50) L Unsaturated Iron Binding 101 ug/dL (112-346) L Ferritin 875 NG/ML (8-388) H Lactate Dehydrogenase 234 U/L (81-234) Methylmalonic Acid Pending Folate 17.5 NG/ML (8.6-58.9) Thyroid Stimulating Hormone (TSH) 2.208 uiU/mL (0.358-3.740) Sodium Level Pending Potassium Level Pending Chloride Level Pending Carbon Dioxide Level Pending Blood Urea Nitrogen Pending Creatinine Pending Estimat Glomerular Filtration Rate Pending Glucose Level Pending Calcium Level Pending Total Bilirubin Pending Aspartate Amino Transf (AST/SGOT) Pending Alanine Aminotransferase (ALT/SGPT) Pending Alkaline Phosphatase Pending Total Protein Pending Albumin Pending Globulin Pending Risk Assessment & Plan Assessment: asa3 Plan: mac Status Change Before Surgery: No Pre-Antibiotics Drug: Michelle Ignacio MD Sep 25, 2017 06:46
[2017-09-25] MEDS: Pantoprazole Inj IVP SCH (09:24)
--- NOTE | 2017-09-25 10:22 | Physician Query ---
SIRS--------- THIS DOCUMENT IS A PERMANENT PART OF THE MEDICAL RECORD --------- PLEASE COMPLETE THE DOCUMENT BEFORE SIGNING Dear Dr. Wilson Date: 09/25/2017 Pipe Jeeper/CDS Name: Leanna marcelino Pipe Jeeper/CDS Phone No.:[phone] Exercise your independent professional judgment when responding to query. Question asked do not imply a particular answer is desired/expected Clinical Documentation States: Patient admitted with GI bleeding and UTI. Clinical Findings Show: WBC: 17.0 ---> 21.1, Temp: 99.9, HR: 91, RR: 21 Antibiotics: Zosyn. Please clarify the diagnosis for above findings: [ ] Sepsis [ ] Sepsis with organ dysfunction [ ] SIRS [ ] SIRS with organ dysfunction [ ] Septic Shock [ ] Other: [ ] Clinically Undeterminable Present on admission? [] Yes [] No [] Clinically undeterminable Criteria for Sepsis* Sepsis: Presence of 1 or more criteria in this row. Positive cultures (but not required) or WBCs present in otherwise sterile fluid: blood, urine, sputum, CSF , etc.? Prescribed anti-infective therapy: antibiotic, antifungal, and other? Documentation of pneumonia: positive x-ray or clinical presentation? Perforated viscus: perforation of a hollow organ, e.g. bowel? SIRS: Presence of > 2 criteria in this row Temperature: > 100.4 F. or < 96.8 F. Heart rate: > 90 bpm Respiratory rate: > 20/min. WBC count: > 12,000/mm2 < 4,000/mm2 > 10% bands MTDD
--- NOTE | 2017-09-25 11:13 | General Progress Note ---
Assessment/Plan Status: unchanged Assessment/Plan 1. Anemia due to gastrointestinal bleed. --> Anemia panel has been reviewed, will trend daily. --> Rule out GI bleed. Dr. Puentes, GI Service, consulted. --> Hgb goal >7 2. Coagulopathy. Rule out liver disease. --> The patient to undergo endoscopy. --> Very minor at this time. 3. Pulmonary embolism. Obtain duplex of lower extremities. Rule out blood clots of lower extremities. 4. Transaminitis. 5. Obesity. Recommend weight loss. The time the note was entered does not necessarily correspond to the time the patient was seen. Subjective Date patient seen: Sep 25, 2017 Hematologic/Lymphatic: Reports: anemia Allergies: Coded Allergies: No Known Allergies (Verified , 11/20/06) All Systems: reviewed and negative except above Subjective No acute events. EGD scheduled for today. Objective Last 24 Hour Vital Signs Date Time Temp Pulse Resp B/P (MAP) Pulse Ox O2 Delivery O2 Flow Rate FiO2 09/25/17 09:00 Nasal Cannula 3.0 09/25/17 08:00 98.2 90 20 139/66 (90) 99 98.2 09/25/17 07:42 88 09/25/17 04:00 98.2 84 20 102/52 (69) 100 98.2 09/25/17 04:00 86 09/25/17 04:00 Nasal Cannula 3.0 09/25/17 00:00 Nasal Cannula 3.0 09/25/17 00:00 98.4 86 18 96/52 (67) 98 98.4 09/25/17 00:00 85 09/24/17 20:00 Nasal Cannula 3.0 09/24/17 20:00 86 09/24/17 20:00 97.7 90 20 95/45 (62) 98 97.7 09/24/17 16:00 Nasal Cannula 3.0 09/24/17 16:00 97.9 86 19 116/59 (78) 100 97.9 09/24/17 15:19 86 09/24/17 12:15 97.9 86 18 101/58 (72) 99 97.9 09/24/17 12:00 Nasal Cannula 3.0 09/24/17 11:22 88 Intake and Output 09/24/17 09/25/17 19:00 07:00 Intake Total 800.0 ml 527.5 ml Output Total 200 ml 300 ml Balance 600.0 ml 227.5 ml Intake Oral 30 ml 50 ml IV Total 770.0 ml 477.5 ml Output Urine Total 200 ml 300 ml Laboratory Tests 09/24/17 16:50: Haptoglobin [Pending], Fibrinogen 541H, Iron Level 12L, Total Iron Binding Capacity 113L, Percent Iron Saturation 11L, Unsaturated Iron Binding 101L, Ferritin 875H, Lactate Dehydrogenase 234, Methylmalonic Acid [Pending], Folate 17.5, Thyroid Stimulating Hormone (TSH) 2.208 09/25/17 04:00: White Blood Count 15.1H, Red Blood Count 3.08L, Hemoglobin 8.3L, Hematocrit 26.7L, Mean Corpuscular Volume 87, Mean Corpuscular Hemoglobin 26.8L, Mean Corpuscular Hemoglobin Concent 30.9L, Red Cell Distribution Width 13.2, Platelet Count 354, Mean Platelet Volume 4.8L, Neutrophils (%) (Auto) , Lymphocytes (%) (Auto) , Monocytes (%) (Auto) , Eosinophils (%) (Auto) , Basophils (%) (Auto) , Differential Total Cells Counted 100, Neutrophils % ( Manual) 90H, Lymphocytes % (Manual) 5L, Monocytes % (Manual) 2, Eosinophils % ( Manual) 0, Basophils % (Manual) 0, Band Neutrophils 3, Platelet Estimate Adequate, Platelet Morphology Normal, Hypochromasia 1+, Sodium Level 138, Potassium Level 3.3L, Chloride Level 100, Carbon Dioxide Level 33H, Anion Gap 6 , Blood Urea Nitrogen 10, Creatinine 0.6, Estimat Glomerular Filtration Rate > 60, Glucose Level 81, Calcium Level 8.8, Total Bilirubin 0.4, Aspartate Amino Transf (AST/SGOT) 50H, Alanine Aminotransferase (ALT/SGPT) 45, Alkaline Phosphatase 89, Total Protein 6.9, Albumin 1.9L, Globulin 5.0, Albumin/Globulin Ratio 0.4L Height (Feet): 5 Height (Inches): 5.00 Weight (Pounds): 350 General Appearance: no apparent distress EENT: PERRL/EOMI Neck: normal alignment Cardiovascular: normal peripheral pulses Respiratory/Chest: no respiratory distress Abdomen: soft Benito Garcia MD Sep 25, 2017 11:13
--- NOTE | 2017-09-25 11:24 | Pre-Procedure Note/Attestation ---
Pre-Procedure Note/Attestation Complete Prior to Procedure Planned Procedure: not applicable Procedure Narrative: EGD Indications for Procedure Pre-Operative Diagnosis: UGIB Attestation I attest that I discussed the nature of the procedure; its benefits; risks and complications; and alternatives (and the risks and benefits of such alternatives ), prior to the procedure, with the patient (or the patient's legal primary care sales representative). I attest that, if there was a reasonable possibility of needing a blood transfusion, the patient (or the patient's legal primary care sales representative) was given the [facility] standardized written summary, pursuant to the [place] Blood Safety Act ([place] Health and Safety Code # 1645, as amended). I attest that I re-evaluated the patient just prior to the surgery and that there has been no change in the patient's H&P, except as documented below: Gallo Puentes MD Sep 25, 2017 11:24
[2017-09-25] MEDS ORDERED: Propofol 200mg/20ml IV ONE (11:30)
[2017-09-25] MEDS ORDERED: Lidocaine 1% MPF 10mg/ml 5ml ONE (11:30)
--- NOTE | 2017-09-25 12:04 | Infectious Diseases Prog Note ---
Assessment/Plan Assessment/Plan antibiotics : zosyn A 1. e.coli UTI 2. leucocytosis improving 3. r/o GI bleeding 4. diabetes mellitus 5. hypertension 6. seizures P 1. d/c zosyn 2. start and continue ceftriaxone 4 more days 3. will follow up cultures Subjective ROS Limited/Unobtainable: Yes Allergies: Coded Allergies: No Known Allergies (Verified , 11/20/06) Objective Vital Signs Last 24 Hour Vital Signs Date Time Temp Pulse Resp B/P (MAP) Pulse Ox O2 Delivery O2 Flow Rate FiO2 09/25/17 09:00 Nasal Cannula 3.0 09/25/17 08:00 98.2 90 20 139/66 (90) 99 98.2 09/25/17 07:42 88 09/25/17 04:00 98.2 84 20 102/52 (69) 100 98.2 09/25/17 04:00 86 09/25/17 04:00 Nasal Cannula 3.0 09/25/17 00:00 Nasal Cannula 3.0 09/25/17 00:00 98.4 86 18 96/52 (67) 98 98.4 09/25/17 00:00 85 09/24/17 20:00 Nasal Cannula 3.0 09/24/17 20:00 86 09/24/17 20:00 97.7 90 20 95/45 (62) 98 97.7 09/24/17 16:00 Nasal Cannula 3.0 09/24/17 16:00 97.9 86 19 116/59 (78) 100 97.9 09/24/17 15:19 86 09/24/17 12:15 97.9 86 18 101/58 (72) 99 97.9 Height (Feet): 5 Height (Inches): 5.00 Weight (Pounds): 350 Respiratory/Chest: lungs clear Cardiovascular: normal rate, regular rhythm, no gallop/murmur Abdomen: soft, non tender Extremities: no edema Microbiology Date/Time Source Procedure Growth Status 09/23/17 05:33 Blood Blood Culture - Preliminary NO GROWTH AFTER 24 HOURS Resulted 09/23/17 05:18 Blood Blood Culture - Preliminary NO GROWTH AFTER 24 HOURS Resulted 09/23/17 05:58 Nasal Nares MRSA Culture - Final NO METHICILLIN RESISTANT STAPH AUREUS... Complete 09/23/17 05:58 Urine,Clean Catch Urine Culture - Final Escherichia Coli Complete 09/23/17 05:58 Rectum VRE Culture - Final NO VANCOMYCIN RESISTANT ENTEROCOCCUS ... Complete 09/23/17 05:58 Rectum - Final NO CARBAPENEM-RESISTANT ENTEROBACTERI... Complete Laboratory Tests Test 09/24/17 16:50 09/25/17 04:00 Haptoglobin Pending Fibrinogen 541 mg/dL (200-400) H Iron Level 12 ug/dL (50-175) L Total Iron Binding Capacity 113 ug/dL (250-450) L Percent Iron Saturation 11 % (15-50) L Unsaturated Iron Binding 101 ug/dL (112-346) L Ferritin 875 NG/ML (8-388) H Lactate Dehydrogenase 234 U/L (81-234) Methylmalonic Acid Pending Folate 17.5 NG/ML (8.6-58.9) Thyroid Stimulating Hormone (TSH) 2.208 uiU/mL (0.358-3.740) White Blood Count 15.1 K/UL (4.8-10.8) H Red Blood Count 3.08 M/UL (4.20-5.40) L Hemoglobin 8.3 G/DL (12.0-16.0) L Hematocrit 26.7 % (37.0-47.0) L Mean Corpuscular Volume 87 FL (80-99) Mean Corpuscular Hemoglobin 26.8 PG (27.0-31.0) L Mean Corpuscular Hemoglobin Concent 30.9 G/DL (32.0-36.0) L Red Cell Distribution Width 13.2 % (11.6-14.8) Platelet Count 354 K/UL (150-450) Mean Platelet Volume 4.8 FL (6.5-10.1) L Neutrophils (%) (Auto) % (45.0-75.0) Lymphocytes (%) (Auto) % (20.0-45.0) Monocytes (%) (Auto) % (1.0-10.0) Eosinophils (%) (Auto) % (0.0-3.0) Basophils (%) (Auto) % (0.0-2.0) Differential Total Cells Counted 100 Neutrophils % (Manual) 90 % (45-75) H Lymphocytes % (Manual) 5 % (20-45) L Monocytes % (Manual) 2 % (1-10) Eosinophils % (Manual) 0 % (0-3) Basophils % (Manual) 0 % (0-2) Band Neutrophils 3 % (0-8) Platelet Estimate Adequate Platelet Morphology Normal Hypochromasia 1+ Sodium Level 138 MMOL/L (136-145) Potassium Level 3.3 MMOL/L (3.5-5.1) L Chloride Level 100 MMOL/L (98-107) Carbon Dioxide Level 33 MMOL/L (21-32) H Anion Gap 6 mmol/L (5-15) Blood Urea Nitrogen 10 mg/dL (7-18) Creatinine 0.6 MG/DL (0.55-1.30) Estimat Glomerular Filtration Rate > 60 mL/min (>60) Glucose Level 81 MG/DL (74-106) Calcium Level 8.8 MG/DL (8.5-10.1) Total Bilirubin 0.4 MG/DL (0.2-1.0) Aspartate Amino Transf (AST/SGOT) 50 U/L (15-37) H Alanine Aminotransferase (ALT/SGPT) 45 U/L (12-78) Alkaline Phosphatase 89 U/L (46-116) Total Protein 6.9 G/DL (6.4-8.2) Albumin 1.9 G/DL (3.4-5.0) L Globulin 5.0 g/dL Albumin/Globulin Ratio 0.4 (1.0-2.7) L Current Medications Medications (Trade) Dose Ordered Sig/Deborah Route PRN Reason Start Time Stop Time Status Last Admin Dose Admin Acetaminophen (Tylenol) 650 mg Q4H PRN ORAL Pain Scale (3-5) 09/23/17 09:30 10/23/17 09:29 Acetaminophen/ Hydrocodone Bitart ([place] 5/325) 1 tab Q4H PRN ORAL Moderate Breakthru Pain (5-7) 09/23/17 09:30 09/30/17 09:29 09/24/17 21:54 Acetaminophen/ Hydrocodone Bitart ([place] 5/325) 2 tab Q4H PRN ORAL Severe Pain (Pain Scale 7-10) 09/23/17 09:30 09/30/17 09:29 Al Hydroxide/Mg Hydroxide (Mylanta) 15 ml Q1H PRN ORAL gi upset 09/25/17 06:45 09/25/17 13:00 Atropine Sulfate (Atropine) 0.5 mg Q5M PRN IV bpm less than 45 09/25/17 06:45 09/25/17 13:00 Chlorhexidine Gluconate (Maryse-Hex 2%) 1 applic DAILY@2000 TOPIC 09/24/17 20:00 10/24/17 19:59 09/24/17 21:49 Dextrose (Dextrose 50%) 25 ml STAT PRN IV Hypoglycemia 09/23/17 09:30 10/23/17 09:29 Dextrose (Dextrose 50%) 50 ml STAT PRN IV Hypoglycemia 09/23/17 09:30 10/23/17 09:29 Dextrose/ Electrolytes 1,000 ml @ 50 mls/hr Q20H IV 09/24/17 20:00 10/24/17 19:59 09/24/17 21:49 Diphenhydramine HCl (Benadryl) 25 mg Q15M PRN IVP Itching 09/25/17 06:45 09/25/17 13:00 Fentanyl Citrate (Sublimaze 100 mcg/2 mL) 25 mcg Q10M PRN IV Moderate Pain (Pain Scale 4-6) 09/25/17 06:45 09/25/17 13:00 Hydralazine HCl (Apresoline) 10 mg Q4H PRN ORAL SBP > 160mmHg 09/24/17 09:00 10/24/17 08:59 Insulin Aspart (NovoLOG) BEFORE MEALS AND HS SUBQ 09/23/17 11:30 10/23/17 11:29 Labetalol HCl (Normodyne) 5 mg Q10M PRN IV SBP>160 or____/ DBP>90 or 09/25/17 06:45 09/25/17 13:00 Levetiracetam (Keppra) 750 mg EVERY 12 HOURS ORAL 09/24/17 21:00 10/23/17 17:59 09/25/17 09:23 Midazolam HCl (Versed 2mg/2ml vial) 1 mg Q15M PRN IVP For Anxiety 09/25/17 06:45 09/25/17 13:00 Ondansetron HCl (Zofran) 4 mg Q1H PRN IVP Nausea & Vomiting 09/25/17 06:45 09/25/17 13:00 Ondansetron HCl (Zofran) 4 mg Q4H PRN ORAL Nausea & Vomiting 09/23/17 09:30 10/23/17 09:29 Pantoprazole (Protonix) 40 mg DAILY IVP 09/23/17 17:00 10/23/17 16:59 09/25/17 09:24 Piperacillin Sod/ Tazobactam Sod 3.375 gm/Dextrose 110 ml @ 27.5 mls/hr EVERY 8 HOURS IV 09/23/17 14:00 09/28/17 13:59 09/25/17 06:14 Zonisamide (Zonegran) 300 mg DAILY ORAL 09/24/17 09:00 10/24/17 08:59 09/25/17 09:24 LIZZIE MCCURDY Sep 25, 2017 12:04
--- NOTE | 2017-09-25 12:10 | Immediate Post-Op Evaluation ---
Immediate Post-Op Evalulation Immediate Post-Op Evalulation Procedure: egd w/ bx Date of Evaluation: Sep 25, 2017 Time of Evaluation: 12:04 IV Fluids: 200ml 0.9ns Blood Products: none Estimated Blood Loss: negligible Blood Pressure Systolic: 117 Blood Pressure Diastolic: 58 Pulse Rate: 92 Respiratory Rate: 18 O2 Sat by Pulse Oximetry: 100 Temperature (Fahrenheit): 97.8 Pain Score (1-10): 0 Nausea: No Vomiting: No Complications none Patient Status: awake, reacts, patent Hydration Status: adequate Drug: Michelle Ignacio MD Sep 25, 2017 12:09
--- NOTE | 2017-09-25 12:11 | 48 Hour Post Anesthesia Eval ---
Post Anesthesia Evaluation Procedure: egd w/ bx Date of Evaluation: Sep 25, 2017 Time of Evaluation: 12:10 Blood Pressure Systolic: 129 0: 74 Pulse Rate: 92 Respiratory Rate: 18 Temperature (Fahrenheit): 97.8 O2 Sat by Pulse Oximetry: 100 Airway: patent Nausea: No Vomiting: No Pain Intensity: 0 Hydration Status: adequate Cardiopulmonary Status: stable Mental Status/LOC: patient returned to baseline Post-Anesthesia Complications: none Follow-up care needed: N/A Michelle Syed MD Sep 25, 2017 12:11
[2017-09-25] MEDS: cefTRIAXone 1 GM in D5W 55 ML IVPB SCH (15:28)
--- NOTE | 2017-09-25 17:02 | General Progress Note ---
Assessment/Plan Problem List: (1) Morbid obesity ICD Codes: E66.01 - Morbid (severe) obesity due to excess calories SNOMED: 549551253 (2) Upper gastrointestinal bleed ICD Codes: K92.2 - Gastrointestinal hemorrhage, unspecified SNOMED: 30270440 (3) UTI (urinary tract infection) ICD Codes: N39.0 - Urinary tract infection, site not specified SNOMED: 94887651 Qualifiers: Qualified Codes: N39.0 - Urinary tract infection, site not specified Status: progressing Assessment/Plan s/p endoscopy afebrile check h/h obesity moniter for bleeding Subjective ROS Limited/Unobtainable: Yes Allergies: Coded Allergies: No Known Allergies (Verified , 11/20/06) Objective Last 24 Hour Vital Signs Date Time Temp Pulse Resp B/P (MAP) Pulse Ox O2 Delivery O2 Flow Rate FiO2 09/25/17 16:14 99.0 89 19 116/68 (84) 94 99.0 09/25/17 16:00 92 09/25/17 12:55 98.8 94 19 120/62 (81) 100 98.8 09/25/17 12:20 98.3 90 19 132/70 100 Nasal Cannula 3 98.3 09/25/17 12:15 93 19 135/72 100 Nasal Cannula 3 09/25/17 12:11 208.0 92 18 100 09/25/17 12:09 208.0 92 18 100 09/25/17 12:05 90 19 125/60 100 Nasal Cannula 4 09/25/17 12:00 89 19 125/60 100 Nasal Cannula 4 09/25/17 11:55 97.8 90 19 117/58 100 Nasal Cannula 4 97.8 09/25/17 09:00 Nasal Cannula 3.0 09/25/17 08:00 98.2 90 20 139/66 (90) 99 98.2 09/25/17 07:42 88 09/25/17 04:00 98.2 84 20 102/52 (69) 100 98.2 09/25/17 04:00 86 09/25/17 04:00 Nasal Cannula 3.0 09/25/17 00:00 Nasal Cannula 3.0 09/25/17 00:00 98.4 86 18 96/52 (67) 98 98.4 09/25/17 00:00 85 09/24/17 20:00 Nasal Cannula 3.0 09/24/17 20:00 86 09/24/17 20:00 97.7 90 20 95/45 (62) 98 97.7 Intake and Output 09/24/17 09/25/17 19:00 07:00 Intake Total 800.0 ml 527.5 ml Output Total 200 ml 300 ml Balance 600.0 ml 227.5 ml Intake Oral 30 ml 50 ml IV Total 770.0 ml 477.5 ml Output Urine Total 200 ml 300 ml Laboratory Tests 09/25/17 04:00: White Blood Count 15.1H, Red Blood Count 3.08L, Hemoglobin 8.3L, Hematocrit 26.7L, Mean Corpuscular Volume 87, Mean Corpuscular Hemoglobin 26.8L, Mean Corpuscular Hemoglobin Concent 30.9L, Red Cell Distribution Width 13.2, Platelet Count 354, Mean Platelet Volume 4.8L, Neutrophils (%) (Auto) , Lymphocytes (%) (Auto) , Monocytes (%) (Auto) , Eosinophils (%) (Auto) , Basophils (%) (Auto) , Differential Total Cells Counted 100, Neutrophils % ( Manual) 90H, Lymphocytes % (Manual) 5L, Monocytes % (Manual) 2, Eosinophils % ( Manual) 0, Basophils % (Manual) 0, Band Neutrophils 3, Platelet Estimate Adequate, Platelet Morphology Normal, Hypochromasia 1+, Sodium Level 138, Potassium Level 3.3L, Chloride Level 100, Carbon Dioxide Level 33H, Anion Gap 6 , Blood Urea Nitrogen 10, Creatinine 0.6, Estimat Glomerular Filtration Rate > 60, Glucose Level 81, Calcium Level 8.8, Total Bilirubin 0.4, Aspartate Amino Transf (AST/SGOT) 50H, Alanine Aminotransferase (ALT/SGPT) 45, Alkaline Phosphatase 89, Total Protein 6.9, Albumin 1.9L, Globulin 5.0, Albumin/Globulin Ratio 0.4L Height (Feet): 5 Height (Inches): 5.00 Weight (Pounds): 350 Respiratory/Chest: lungs clear Abdomen: soft Colt Dietrich MD Sep 25, 2017 17:02
[2017-09-25] MEDS: D5 1/2NS w/KCl 20mEq 1,000 ML IV SCH (18:03)
[2017-09-25] MEDS: Dyna-Hex 2% Top Sol 2oz TOPIC SCH (20:51)
--- NOTE | 2017-09-25 23:19 | General Progress Note ---
Assessment/Plan Assessment/Plan Assessment - UGIB - Anemia - Mild transaminitis, likely fatty change - obesity Recommendation - follow LFT - EGD today - PPI - follow labs Post procedure addendum (EGD) Results: - severe esophagitis (biopsied) - likely GERD - 1 cm antrum ulcer, non bleeding (biopsied) - significant (1700 cc) bloody liquid residual aspirated from stomach Recommendations - NPO - NGT - LIS - q 12 PPI - follow up biopsies - CT scan - follow CBC Subjective Allergies: Coded Allergies: No Known Allergies (Verified , 11/20/06) Subjective Seen in am pre endoscopy no new symptoms had pick line placed yesterday Objective Last 24 Hour Vital Signs Date Time Temp Pulse Resp B/P (MAP) Pulse Ox O2 Delivery O2 Flow Rate FiO2 09/25/17 21:00 Nasal Cannula 3.0 09/25/17 20:00 98.9 93 20 106/55 (72) 95 98.9 09/25/17 19:50 95 09/25/17 16:14 99.0 89 19 116/68 (84) 94 99.0 09/25/17 16:00 92 09/25/17 12:55 98.8 94 19 120/62 (81) 100 98.8 09/25/17 12:20 98.3 90 19 132/70 100 Nasal Cannula 3 98.3 09/25/17 12:15 93 19 135/72 100 Nasal Cannula 3 09/25/17 12:11 208.0 92 18 100 09/25/17 12:09 208.0 92 18 100 09/25/17 12:05 90 19 125/60 100 Nasal Cannula 4 09/25/17 12:00 89 19 125/60 100 Nasal Cannula 4 09/25/17 11:55 97.8 90 19 117/58 100 Nasal Cannula 4 97.8 09/25/17 09:00 Nasal Cannula 3.0 09/25/17 08:00 98.2 90 20 139/66 (90) 99 98.2 09/25/17 07:42 88 09/25/17 04:00 98.2 84 20 102/52 (69) 100 98.2 09/25/17 04:00 86 09/25/17 04:00 Nasal Cannula 3.0 09/25/17 00:00 Nasal Cannula 3.0 09/25/17 00:00 98.4 86 18 96/52 (67) 98 98.4 09/25/17 00:00 85 Intake and Output 09/24/17 09/25/17 19:00 07:00 Intake Total 800.0 ml 527.5 ml Output Total 200 ml 300 ml Balance 600.0 ml 227.5 ml Intake Oral 30 ml 50 ml IV Total 770.0 ml 477.5 ml Output Urine Total 200 ml 300 ml Laboratory Tests 09/25/17 04:00: White Blood Count 15.1H, Red Blood Count 3.08L, Hemoglobin 8.3L, Hematocrit 26.7L, Mean Corpuscular Volume 87, Mean Corpuscular Hemoglobin 26.8L, Mean Corpuscular Hemoglobin Concent 30.9L, Red Cell Distribution Width 13.2, Platelet Count 354, Mean Platelet Volume 4.8L, Neutrophils (%) (Auto) , Lymphocytes (%) (Auto) , Monocytes (%) (Auto) , Eosinophils (%) (Auto) , Basophils (%) (Auto) , Differential Total Cells Counted 100, Neutrophils % ( Manual) 90H, Lymphocytes % (Manual) 5L, Monocytes % (Manual) 2, Eosinophils % ( Manual) 0, Basophils % (Manual) 0, Band Neutrophils 3, Platelet Estimate Adequate, Platelet Morphology Normal, Hypochromasia 1+, Sodium Level 138, Potassium Level 3.3L, Chloride Level 100, Carbon Dioxide Level 33H, Anion Gap 6 , Blood Urea Nitrogen 10, Creatinine 0.6, Estimat Glomerular Filtration Rate > 60, Glucose Level 81, Calcium Level 8.8, Total Bilirubin 0.4, Aspartate Amino Transf (AST/SGOT) 50H, Alanine Aminotransferase (ALT/SGPT) 45, Alkaline Phosphatase 89, Total Protein 6.9, Albumin 1.9L, Globulin 5.0, Albumin/Globulin Ratio 0.4L Height (Feet): 5 Height (Inches): 5.00 Weight (Pounds): 350 Objective WDWN NCAT supple CTA RRR abd soft obesity (+) edema Gallo Puentes MD Sep 25, 2017 23:19
--- NOTE | 2017-09-25 23:21 | Endoscopy Procedure Note ---
Endoscopy Procedure Note General Indication for Procedure: GIB Procedures Performed: EGD Operative Findings/Diagnosis: , GERD, gastric liquid residual Specimen: yes Pt Tolerated Procedure Well: Yes Estimated Blood Loss: none Anesthesia Anesthesiologist: Ajay wilson Anesthesia: MAC Medications Medication Given: see anesthesia record Inserted Devices Implant(s) used?: No GI Core Measures 50 yrs or older w/o bx or poly: Not Applicable 10yrs. F/U not recommended: Not Applicable If not recommended, why?: Gallo Puentes MD Sep 25, 2017 23:21
--- NOTE | 2017-09-25 23:24 | Brief Operative Note ---
Immediate Post Operative Note Operative Note Chief Complaint: GIB Pre-op Diagnosis: UGIB Procedure: EGD Post-op Diagnosis: Results: - severe esophagitis (biopsied) - likely GERD - 1 cm antrum ulcer, non bleeding (biopsied) - significant (1700 cc) bloody liquid residual aspirated from stomach Recommendations - NPO - NGT - q 12 PPI - follow up biopsies - CT scan - follow CBC Surgeon: ella Anesthesiologist: harvey wilson Anesthesia: MAC Specimen: yes Complications: none Condition: stable Fluids: recorded Estimated Blood Loss: none Drains: none Implant(s) used?: No Gallo Puentes MD Sep 25, 2017 23:24
[2017-09-26] VITALS: BP 100/50
[2017-09-26 04:00] VITALS: BP 100/50
[2017-09-26 05:08] LABS: HEMATOCRIT 25.4 % (37.0-47.0); HEMOGLOBIN 7.9 G/DL (12.0-16.0); MEAN CORPUSCULAR VOLUME 86 FL (80-99); PLATELET COUNT 323 K/UL (150-450); RED BLOOD COUNT 2.97 M/UL (4.20-5.40); RED CELL DISTRIBUTION WIDTH 13.4 % (11.6-14.8); WHITE BLOOD COUNT 12.1 K/UL (4.8-10.8)
[2017-09-26 05:45] LABS: ALANINE AMINOTRANSFERASE 43 U/L (12-78); ALBUMIN 1.8 G/DL (3.4-5.0); ALBUMIN/GLOBULIN RATIO 0.4 (1.0-2.7); ALKALINE PHOSPHATASE 86 U/L (46-116); ANION GAP 5 mmol/L (5-15); ASPARTATE AMINO TRANSFERASE 46 U/L (15-37); BILIRUBIN,TOTAL 0.4 MG/DL (0.2-1.0); BLOOD UREA NITROGEN 8 mg/dL (7-18); CALCIUM 8.8 MG/DL (8.5-10.1); CARBON DIOXIDE 31 MMOL/L (21-32); CHLORIDE 101 MMOL/L (98-107); CREATININE 0.5 MG/DL (0.55-1.30); POTASSIUM 3.3 MMOL/L (3.5-5.1); SODIUM 137 MMOL/L (136-145)
[2017-09-26] MEDS: NovoLOG Insulin Flexpen SUBQ SCH ×4 (06:03→21:00)
[2017-09-26] MEDS: cefTRIAXone 1 GM in D5W 55 ML IVPB SCH (10:01)
[2017-09-26] MEDS: Pantoprazole Inj IVP SCH ×2 (10:01→21:10)
[2017-09-26 12:00] VITALS: BP_SYST 111; BP_SYST 118; BP_DIAS 56; BP_DIAS 64
--- NOTE | 2017-09-26 12:43 | Diagnostic Imaging Report ---
Indication: Abdominal pain and distention Technique: Noncontrast CT of the abdomen and pelvis utilizing automated exposure control. Axial, sagittal and coronal reformats presented. CT dose: Total DLP 1071 mGycm; CTDI vol 0.2, 0.2, 0.2, 19.8 mGy Comparison: None Findings: Please note that evaluation of the abdominal and pelvic viscera and vascular structures is limited without the use of intravenous and oral contrast. Within these limitations the following observations are made: Trace bilateral pleural effusions with adjacent likely compressive atelectasis in the bilateral lower lobes. Dense opacities in the left lower lobe raising question for possible pneumonia. Heart is enlarged. Noncontrast evaluation of the liver, gallbladder, spleen, adrenal glands and pancreas is grossly unremarkable. The kidneys are symmetric in size. There is no urinary tract stone or hydronephrosis bilaterally. The bladder is decompressed by Martinez catheter, limiting its evaluation. Uterus and adnexa are grossly unremarkable for CT. There is no free intraperitoneal air or fluid. Stomach is moderately distended. No evidence of small bowel obstruction. Colon is normal in caliber. Appendix is normal in appearance. No appreciable bowel wall thickening. Abdominal aorta is normal in caliber. An infrarenal IVC filter is in place. No bulky/conglomerate lymphadenopathy. There are multilevel degenerative changes in the thoracolumbar spine. Likely Schmorl's node in the superior endplate of T12. Right femoral fixation hardware. No acute osseous abnormality is appreciated. There are skin nery with subcutaneous gas and stranding overlying the soft tissues of the right lateral superior hip and upper abdominal wall. Correlate for recent surgical intervention. There is a 5.7 x 1.8 cm area of soft tissue attenuation in this region (series 4 image #125) which may be related to postoperative or phlegmonous change. Possibility of infection not entirely excluded. IMPRESSION: Limited exam without intravenous and oral contrast. Within these limitations: * Surgical nery overlying the subcutaneous tissues of the right lateral lower abdomen/pelvis with foci of subcutaneous gas. Correlate for recent surgical intervention. Given skin thickening and inflammatory change, infection of this area not entirely excluded. There is amorphous area of soft tissue attenuation measuring 5.7 x 1.8 cm in this region which may be related to postoperative change however phlegmonous change/early abscess formation not entirely excluded. No well-defined/drainable collection identified at this time. * No evidence of small or large bowel obstruction. * Stomach moderately distended but otherwise unremarkable. Correlate for gastroparesis or degree of outlet obstruction. Consider endoscopy as clinically indicated. * Trace bilateral pleural effusions and adjacent basilar atelectasis in the bilateral lower lobes. * More dense opacity in the left lower lobe possibly related to subsegmental atelectasis however pneumonia should be excluded clinically. * Cardiomegaly. * Martinez catheter decompresses the bladder, limiting its evaluation. Additional incidental findings as above. The CT scanner at [facility] is accredited by the [employer] and the scans are performed using protocols designed to limit radiation exposure to as low as reasonably achievable to attain images of sufficient resolution adequate for diagnostic evaluation.
--- NOTE | 2017-09-26 12:43 | General Progress Note ---
Assessment/Plan Status: unchanged Assessment/Plan 1. Anemia due to gastrointestinal bleed. --> Anemia panel has been reviewed, will trend daily. --> Rule out GI bleed. Dr. Puentes, GI Service, consulted. --> Hgb goal >7 2. Coagulopathy. Rule out liver disease. --> The patient to undergo endoscopy. --> Very minor at this time. 3. Pulmonary embolism. Obtain duplex of lower extremities. Rule out blood clots of lower extremities. 4. Transaminitis. 5. Obesity. Recommend weight loss. The time the note was entered does not necessarily correspond to the time the patient was seen. Subjective Date patient seen: Sep 26, 2017 ROS Limited/Unobtainable: Yes Allergies: Coded Allergies: No Known Allergies (Verified , 11/20/06) All Systems: reviewed and negative except above Subjective No acute events. Pt refusing NGT. Unable to perfrom CT due to pt's obesity, per radiology. Objective Last 24 Hour Vital Signs Date Time Temp Pulse Resp B/P (MAP) Pulse Ox O2 Delivery O2 Flow Rate FiO2 09/26/17 12:00 85 09/26/17 12:00 98.2 87 20 118/64 (82) 97 98.2 09/26/17 09:00 Nasal Cannula 3.0 09/26/17 08:00 88 09/26/17 05:48 98.2 09/26/17 04:49 98.2 09/26/17 04:00 98.2 75 20 100/50 (67) 96 98.2 09/26/17 04:00 91 09/26/17 00:00 98.2 94 20 100/50 (67) 97 98.2 09/26/17 00:00 89 09/25/17 21:00 Nasal Cannula 3.0 09/25/17 20:00 98.9 93 20 106/55 (72) 95 98.9 09/25/17 19:50 95 09/25/17 16:14 99.0 89 19 116/68 (84) 94 99.0 09/25/17 16:00 92 09/25/17 12:55 98.8 94 19 120/62 (81) 100 98.8 Intake and Output 09/25/17 09/26/17 19:00 07:00 Intake Total 755 ml Output Total 450 ml Balance 305 ml IV Total 755 ml Output Urine Total 450 ml Laboratory Tests 09/26/17 04:00: White Blood Count 12.1H, Red Blood Count 2.97L, Hemoglobin 7.9L, Hematocrit 25.4L, Mean Corpuscular Volume 86, Mean Corpuscular Hemoglobin 26.6L, Mean Corpuscular Hemoglobin Concent 31.0L, Red Cell Distribution Width 13.4, Platelet Count 323, Mean Platelet Volume 4.8L, Neutrophils (%) (Auto) , Lymphocytes (%) (Auto) , Monocytes (%) (Auto) , Eosinophils (%) (Auto) , Basophils (%) (Auto) , Differential Total Cells Counted 100, Neutrophils % ( Manual) 90H, Lymphocytes % (Manual) 6L, Monocytes % (Manual) 4, Eosinophils % ( Manual) 0, Basophils % (Manual) 0, Band Neutrophils 0, Platelet Estimate Adequate, Platelet Morphology Normal, Hypochromasia 1+, Anisocytosis 1+, Sodium Level 137, Potassium Level 3.3L, Chloride Level 101, Carbon Dioxide Level 31, Anion Gap 5, Blood Urea Nitrogen 8, Creatinine 0.5L, Estimat Glomerular Filtration Rate > 60, Glucose Level 87, Calcium Level 8.8, Total Bilirubin 0.4, Aspartate Amino Transf (AST/SGOT) 46H, Alanine Aminotransferase (ALT/SGPT) 43, Alkaline Phosphatase 86, Total Protein 6.5, Albumin 1.8L, Globulin 4.7, Albumin/ Globulin Ratio 0.4L, Hepatitis A IgM Antibody [Pending], Hepatitis B Surface Antigen [Pending], Hepatitis B Core IgM Antibody [Pending], Hepatitis C Antibody [Pending] Height (Feet): 5 Height (Inches): 5.00 Weight (Pounds): 350 General Appearance: no apparent distress, alert, obese EENT: PERRL/EOMI Neck: normal alignment Cardiovascular: normal peripheral pulses Respiratory/Chest: no respiratory distress Abdomen: no mass Benito Garcia MD Sep 26, 2017 12:43
--- NOTE | 2017-09-26 14:02 | Procedure Note ---
DATE OF PROCEDURE: 09/25/2017 NOTE: POOR AUDIO SURGEON: Gallo Puentes M.D. PROCEDURE: Upper gastrointestinal endoscopy with biopsy. ANESTHESIA: Please see the separate anesthesiologist notes for details. PRE-ENDOSCOPIC DIAGNOSIS: Acute gastrointestinal bleeding. POST-ENDOSCOPIC DIAGNOSES: 1. Severe esophagitis. 2. A 1 cm antrum ulcer without evidence of bleeding. 3. Significant dark liquid residual in the stomach. DESCRIPTION OF PROCEDURE: The procedure, its risks, indications, alternatives, and possible complications were explained to the patient's family and informed consent was obtained. The patient was sedated in the supine position and a diagnostic upper endoscope was introduced into the oropharynx and advanced to the duodenum. The endoscope was then gradually withdrawn and mucosa was examined carefully. The examination of the mucosa revealed severe circumferential acid reflux-type esophagitis extending to about correction up the esophagus. There was also significant residual liquid food in the stomach 1700 mL, which was aspirated. Notation was made of this amount of liquid and 1 cm wide- based ulcer was seen in the antrum, which was biopsied. The endoscope was removed and the patient was sent to recovery in good condition. COMPLICATIONS: None. RECOMMENDATIONS: 1. B.i.d. proton pump inhibitor. 2. Epigastric suction. 3. Check CT scan of the abdomen and pelvis. Thank you for asking me to participate in the care of this patient. Gallo Puentes M.D. DR: RAY JOB#: [id number] CC: MIRIAM
[2017-09-26] MEDS ORDERED: 1/2 NS 1000ml IV ONE (14:49)
--- NOTE | 2017-09-26 15:06 | Infectious Diseases Prog Note ---
Assessment/Plan Assessment/Plan 1. E.coli UTI 2. leucocytosis improving 3. Gastric ulcer 4. diabetes mellitus 5. hypertension 6. seizures 7. Morbid obesity P 1. continue ceftriaxone 3 more days 2. will follow up cultures Subjective ROS Limited/Unobtainable: No Constitutional: Reports: no symptoms Cardiovascular: Reports: no symptoms Gastrointestinal/Abdominal: Reports: no symptoms Genitourinary: Reports: no symptoms Musculoskeletal: Reports: pain, other - hip Allergies: Coded Allergies: No Known Allergies (Verified , 11/20/06) Objective Vital Signs Last 24 Hour Vital Signs Date Time Temp Pulse Resp B/P (MAP) Pulse Ox O2 Delivery O2 Flow Rate FiO2 09/26/17 12:00 85 09/26/17 12:00 98.2 87 20 118/64 (82) 97 98.2 09/26/17 09:00 Nasal Cannula 3.0 09/26/17 08:00 88 09/26/17 05:48 98.2 09/26/17 04:49 98.2 09/26/17 04:00 98.2 75 20 100/50 (67) 96 98.2 09/26/17 04:00 91 09/26/17 00:00 98.2 94 20 100/50 (67) 97 98.2 09/26/17 00:00 89 09/25/17 21:00 Nasal Cannula 3.0 09/25/17 20:00 98.9 93 20 106/55 (72) 95 98.9 09/25/17 19:50 95 09/25/17 16:14 99.0 89 19 116/68 (84) 94 99.0 09/25/17 16:00 92 Height (Feet): 5 Height (Inches): 5.00 Weight (Pounds): 350 General Appearance: no acute distress, other - obese HEENT: other - dry mouth Respiratory/Chest: chest wall non-tender Cardiovascular: normal rate Abdomen: soft, non tender Extremities: other Neurologic/Psychiatric: alert, responsive Laboratory Tests Test 09/26/17 04:00 White Blood Count 12.1 K/UL (4.8-10.8) H Red Blood Count 2.97 M/UL (4.20-5.40) L Hemoglobin 7.9 G/DL (12.0-16.0) L Hematocrit 25.4 % (37.0-47.0) L Mean Corpuscular Volume 86 FL (80-99) Mean Corpuscular Hemoglobin 26.6 PG (27.0-31.0) L Mean Corpuscular Hemoglobin Concent 31.0 G/DL (32.0-36.0) L Red Cell Distribution Width 13.4 % (11.6-14.8) Platelet Count 323 K/UL (150-450) Mean Platelet Volume 4.8 FL (6.5-10.1) L Neutrophils (%) (Auto) % (45.0-75.0) Lymphocytes (%) (Auto) % (20.0-45.0) Monocytes (%) (Auto) % (1.0-10.0) Eosinophils (%) (Auto) % (0.0-3.0) Basophils (%) (Auto) % (0.0-2.0) Differential Total Cells Counted 100 Neutrophils % (Manual) 90 % (45-75) H Lymphocytes % (Manual) 6 % (20-45) L Monocytes % (Manual) 4 % (1-10) Eosinophils % (Manual) 0 % (0-3) Basophils % (Manual) 0 % (0-2) Band Neutrophils 0 % (0-8) Platelet Estimate Adequate Platelet Morphology Normal Hypochromasia 1+ Anisocytosis 1+ Sodium Level 137 MMOL/L (136-145) Potassium Level 3.3 MMOL/L (3.5-5.1) L Chloride Level 101 MMOL/L (98-107) Carbon Dioxide Level 31 MMOL/L (21-32) Anion Gap 5 mmol/L (5-15) Blood Urea Nitrogen 8 mg/dL (7-18) Creatinine 0.5 MG/DL (0.55-1.30) L Estimat Glomerular Filtration Rate > 60 mL/min (>60) Glucose Level 87 MG/DL (74-106) Calcium Level 8.8 MG/DL (8.5-10.1) Total Bilirubin 0.4 MG/DL (0.2-1.0) Aspartate Amino Transf (AST/SGOT) 46 U/L (15-37) H Alanine Aminotransferase (ALT/SGPT) 43 U/L (12-78) Alkaline Phosphatase 86 U/L (46-116) Total Protein 6.5 G/DL (6.4-8.2) Albumin 1.8 G/DL (3.4-5.0) L Globulin 4.7 g/dL Albumin/Globulin Ratio 0.4 (1.0-2.7) L Hepatitis A IgM Antibody Pending Hepatitis B Surface Antigen Pending Hepatitis B Core IgM Antibody Pending Hepatitis C Antibody Pending Current Medications Medications (Trade) Dose Ordered Sig/Deborah Route PRN Reason Start Time Stop Time Status Last Admin Dose Admin Acetaminophen (Tylenol) 650 mg Q4H PRN ORAL Pain Scale (3-5) 09/23/17 09:30 10/23/17 09:29 09/26/17 04:49 Barium Sulfate (Readi-Cat 2) 450 ea NOW PRN ORAL Radiology Procedure 09/25/17 23:15 09/27/17 23:07 Ceftriaxone Sodium 1 gm/ Dextrose 55 ml @ 110 mls/hr DAILY IVPB 09/25/17 15:00 10/02/17 14:59 09/26/17 10:01 Chlorhexidine Gluconate (Maryse-Hex 2%) 1 applic DAILY@2000 TOPIC 09/24/17 20:00 10/24/17 19:59 09/25/17 20:51 Dextrose (Dextrose 50%) 25 ml STAT PRN IV Hypoglycemia 09/23/17 09:30 10/23/17 09:29 Dextrose (Dextrose 50%) 50 ml STAT PRN IV Hypoglycemia 09/23/17 09:30 10/23/17 09:29 Dextrose/ Electrolytes 1,000 ml @ 75 mls/hr [id number] IV 09/26/17 20:00 10/24/17 19:59 Hydralazine HCl (Apresoline) 10 mg Q4H PRN ORAL SBP > 160mmHg 09/24/17 09:00 10/24/17 08:59 Insulin Aspart (NovoLOG) BEFORE MEALS AND HS SUBQ 09/23/17 11:30 10/23/17 11:29 Levetiracetam (Keppra) 750 mg EVERY 12 HOURS ORAL 09/24/17 21:00 10/23/17 17:59 09/26/17 10:01 Ondansetron HCl (Zofran) 4 mg Q4H PRN ORAL Nausea & Vomiting 09/23/17 09:30 10/23/17 09:29 Pantoprazole (Protonix) 40 mg EVERY 12 HOURS IVP 09/26/17 09:00 10/23/17 16:59 09/26/17 10:01 Zonisamide (Zonegran) 300 mg DAILY ORAL 09/24/17 09:00 10/24/17 08:59 09/26/17 10:01 Ady Campuzano MD Sep 26, 2017 15:06
[2017-09-26 16:00] VITALS: BP 102/58
--- NOTE | 2017-09-26 16:43 | General Progress Note ---
Assessment/Plan Problem List: (1) Morbid obesity ICD Codes: E66.01 - Morbid (severe) obesity due to excess calories SNOMED: 767403681 (2) Upper gastrointestinal bleed ICD Codes: K92.2 - Gastrointestinal hemorrhage, unspecified SNOMED: 12392114 (3) UTI (urinary tract infection) ICD Codes: N39.0 - Urinary tract infection, site not specified SNOMED: 74133529 Qualifiers: Qualified Codes: N39.0 - Urinary tract infection, site not specified Status: progressing Assessment/Plan s/p endoscopy egd shows severe esophagitis and antral ulcer do PPI moniter for gi bleeding Subjective ROS Limited/Unobtainable: Yes Allergies: Coded Allergies: No Known Allergies (Verified , 11/20/06) Objective Last 24 Hour Vital Signs Date Time Temp Pulse Resp B/P (MAP) Pulse Ox O2 Delivery O2 Flow Rate FiO2 09/26/17 12:00 85 09/26/17 12:00 98.2 87 20 118/64 (82) 97 98.2 09/26/17 09:00 Nasal Cannula 3.0 09/26/17 08:00 88 09/26/17 05:48 98.2 09/26/17 04:49 98.2 09/26/17 04:00 98.2 75 20 100/50 (67) 96 98.2 09/26/17 04:00 91 09/26/17 00:00 98.2 94 20 100/50 (67) 97 98.2 09/26/17 00:00 89 09/25/17 21:00 Nasal Cannula 3.0 09/25/17 20:00 98.9 93 20 106/55 (72) 95 98.9 09/25/17 19:50 95 Intake and Output 09/25/17 09/26/17 19:00 07:00 Intake Total 755 ml Output Total 450 ml Balance 305 ml IV Total 755 ml Output Urine Total 450 ml Laboratory Tests 09/26/17 04:00: White Blood Count 12.1H, Red Blood Count 2.97L, Hemoglobin 7.9L, Hematocrit 25.4L, Mean Corpuscular Volume 86, Mean Corpuscular Hemoglobin 26.6L, Mean Corpuscular Hemoglobin Concent 31.0L, Red Cell Distribution Width 13.4, Platelet Count 323, Mean Platelet Volume 4.8L, Neutrophils (%) (Auto) , Lymphocytes (%) (Auto) , Monocytes (%) (Auto) , Eosinophils (%) (Auto) , Basophils (%) (Auto) , Differential Total Cells Counted 100, Neutrophils % ( Manual) 90H, Lymphocytes % (Manual) 6L, Monocytes % (Manual) 4, Eosinophils % ( Manual) 0, Basophils % (Manual) 0, Band Neutrophils 0, Platelet Estimate Adequate, Platelet Morphology Normal, Hypochromasia 1+, Anisocytosis 1+, Sodium Level 137, Potassium Level 3.3L, Chloride Level 101, Carbon Dioxide Level 31, Anion Gap 5, Blood Urea Nitrogen 8, Creatinine 0.5L, Estimat Glomerular Filtration Rate > 60, Glucose Level 87, Calcium Level 8.8, Total Bilirubin 0.4, Aspartate Amino Transf (AST/SGOT) 46H, Alanine Aminotransferase (ALT/SGPT) 43, Alkaline Phosphatase 86, Total Protein 6.5, Albumin 1.8L, Globulin 4.7, Albumin/ Globulin Ratio 0.4L, Hepatitis A IgM Antibody [Pending], Hepatitis B Surface Antigen [Pending], Hepatitis B Core IgM Antibody [Pending], Hepatitis C Antibody [Pending] Height (Feet): 5 Height (Inches): 5.00 Weight (Pounds): 350 Colt Dietrich MD Sep 26, 2017 16:43
[2017-09-26 20:00] VITALS: BP 106/55
[2017-09-26] MEDS: D5 1/2NS w/KCl 20mEq 1,000 ML IV SCH (21:09)
[2017-09-26] MEDS: Dyna-Hex 2% Top Sol 2oz TOPIC SCH (21:10)
--- NOTE | 2017-09-26 22:58 | General Progress Note ---
Assessment/Plan Assessment/Plan Assessment - UGIB - GERD and gastric ulcer - soft tissues changes seen on CT - gastroparesis - Anemia - Mild transaminitis - obesity Recommendation - continue abx - surgical opinion - follow LFT - PPI - follow labs - repeat CT at later date Subjective Allergies: Coded Allergies: No Known Allergies (Verified , 11/20/06) Subjective denies N/V declined NGT placement last night CT noted: Surgical nery overlying the subcutaneous tissues of the right lateral lower abdomen/pelvis with foci of subcutaneous gas. Correlate for recent surgical intervention. Given skin thickening and inflammatory change, infection of this area not entirely excluded. There is amorphous area of soft tissue attenuation measuring 5.7 x 1.8 cm in this region which may be related to postoperative change however phlegmonous change/early abscess formation not entirely excluded. Objective Last 24 Hour Vital Signs Date Time Temp Pulse Resp B/P (MAP) Pulse Ox O2 Delivery O2 Flow Rate FiO2 09/26/17 16:00 98.6 86 18 102/58 (73) 95 98.6 09/26/17 16:00 89 09/26/17 12:00 85 09/26/17 12:00 98.2 87 20 118/64 (82) 97 98.2 09/26/17 09:00 Nasal Cannula 3.0 09/26/17 08:00 88 09/26/17 05:48 98.2 09/26/17 04:49 98.2 09/26/17 04:00 98.2 75 20 100/50 (67) 96 98.2 09/26/17 04:00 91 09/26/17 00:00 98.2 94 20 100/50 (67) 97 98.2 09/26/17 00:00 89 Intake and Output 09/25/17 09/26/17 19:00 07:00 Intake Total 755 ml Output Total 450 ml Balance 305 ml IV Total 755 ml Output Urine Total 450 ml Laboratory Tests 09/26/17 04:00: White Blood Count 12.1H, Red Blood Count 2.97L, Hemoglobin 7.9L, Hematocrit 25.4L, Mean Corpuscular Volume 86, Mean Corpuscular Hemoglobin 26.6L, Mean Corpuscular Hemoglobin Concent 31.0L, Red Cell Distribution Width 13.4, Platelet Count 323, Mean Platelet Volume 4.8L, Neutrophils (%) (Auto) , Lymphocytes (%) (Auto) , Monocytes (%) (Auto) , Eosinophils (%) (Auto) , Basophils (%) (Auto) , Differential Total Cells Counted 100, Neutrophils % ( Manual) 90H, Lymphocytes % (Manual) 6L, Monocytes % (Manual) 4, Eosinophils % ( Manual) 0, Basophils % (Manual) 0, Band Neutrophils 0, Platelet Estimate Adequate, Platelet Morphology Normal, Hypochromasia 1+, Anisocytosis 1+, Sodium Level 137, Potassium Level 3.3L, Chloride Level 101, Carbon Dioxide Level 31, Anion Gap 5, Blood Urea Nitrogen 8, Creatinine 0.5L, Estimat Glomerular Filtration Rate > 60, Glucose Level 87, Calcium Level 8.8, Total Bilirubin 0.4, Aspartate Amino Transf (AST/SGOT) 46H, Alanine Aminotransferase (ALT/SGPT) 43, Alkaline Phosphatase 86, Total Protein 6.5, Albumin 1.8L, Globulin 4.7, Albumin/ Globulin Ratio 0.4L, Hepatitis A IgM Antibody [Pending], Hepatitis B Surface Antigen [Pending], Hepatitis B Core IgM Antibody [Pending], Hepatitis C Antibody [Pending] Height (Feet): 5 Height (Inches): 5.00 Weight (Pounds): 350 Objective WDWN NCAT supple CTA RRR abd soft obesity (+) edema Gallo Puentes MD Sep 26, 2017 22:58
--- NOTE | 2017-09-26 23:54 | Consultation ---
History of Present Illness General Chief Complaint: Vomiting Present Illness Allergies: Coded Allergies: No Known Allergies (Verified , 11/20/06) Medication History Scheduled Levetiracetam (Levetiracetam), 750 MG ORAL TWICE A DAY, (Reported) Zonisamide* (Zonegran*), 3 CAP ORAL DAILY, (Reported) Scheduled PRN Acetaminophen* (Acetaminophen 325MG Tablet*), 650 MG ORAL Q4H PRN for Pain Scale (3-5), (Reported) Hydralazine Hcl* (Hydralazine Hcl*), 10 MG ORAL EVERY 4 HOURS PRN for For High Blood Pressure, (Reported) Hydrocodone Bit/Acetaminophen 5-325* ([place] 5-325*), 1 TAB ORAL Q4H PRN for Moderate Breakthru Pain (5-7), (Reported) Hydrocodone Bit/Acetaminophen 5-325* ([place] 5-325*), 2 TAB ORAL Q4H PRN for Severe Pain (Pain Scale 7-10), (Reported) Ondansetron* (Zofran*), 4 MG ORAL Q4HR PRN for Nausea & Vomiting, (Reported) Miscellaneous Medications Insulin Lispro (Humalog), 0 SUBQ, (Reported) Patient History Healthcare decision maker Resuscitation status Full Code Advanced Directive on File Physical Exam Last 24 Hour Vital Signs Date Time Temp Pulse Resp B/P (MAP) Pulse Ox O2 Delivery O2 Flow Rate FiO2 09/26/17 21:00 Nasal Cannula 3.0 09/26/17 20:00 99.5 94 19 106/55 (72) 91 99.5 09/26/17 20:00 91 09/26/17 16:00 98.6 86 18 102/58 (73) 95 98.6 09/26/17 16:00 89 09/26/17 12:00 85 09/26/17 12:00 98.2 87 20 118/64 (82) 97 98.2 09/26/17 09:00 Nasal Cannula 3.0 09/26/17 08:00 88 09/26/17 05:48 98.2 09/26/17 04:49 98.2 09/26/17 04:00 98.2 75 20 100/50 (67) 96 98.2 09/26/17 04:00 91 09/26/17 00:00 98.2 94 20 100/50 (67) 97 98.2 09/26/17 00:00 89 Intake and Output 09/25/17 09/26/17 19:00 07:00 Intake Total 755 ml Output Total 450 ml Balance 305 ml IV Total 755 ml Output Urine Total 450 ml Laboratory Tests Test 09/26/17 04:00 White Blood Count 12.1 K/UL (4.8-10.8) H Red Blood Count 2.97 M/UL (4.20-5.40) L Hemoglobin 7.9 G/DL (12.0-16.0) L Hematocrit 25.4 % (37.0-47.0) L Mean Corpuscular Volume 86 FL (80-99) Mean Corpuscular Hemoglobin 26.6 PG (27.0-31.0) L Mean Corpuscular Hemoglobin Concent 31.0 G/DL (32.0-36.0) L Red Cell Distribution Width 13.4 % (11.6-14.8) Platelet Count 323 K/UL (150-450) Mean Platelet Volume 4.8 FL (6.5-10.1) L Neutrophils (%) (Auto) % (45.0-75.0) Lymphocytes (%) (Auto) % (20.0-45.0) Monocytes (%) (Auto) % (1.0-10.0) Eosinophils (%) (Auto) % (0.0-3.0) Basophils (%) (Auto) % (0.0-2.0) Differential Total Cells Counted 100 Neutrophils % (Manual) 90 % (45-75) H Lymphocytes % (Manual) 6 % (20-45) L Monocytes % (Manual) 4 % (1-10) Eosinophils % (Manual) 0 % (0-3) Basophils % (Manual) 0 % (0-2) Band Neutrophils 0 % (0-8) Platelet Estimate Adequate Platelet Morphology Normal Hypochromasia 1+ Anisocytosis 1+ Sodium Level 137 MMOL/L (136-145) Potassium Level 3.3 MMOL/L (3.5-5.1) L Chloride Level 101 MMOL/L (98-107) Carbon Dioxide Level 31 MMOL/L (21-32) Anion Gap 5 mmol/L (5-15) Blood Urea Nitrogen 8 mg/dL (7-18) Creatinine 0.5 MG/DL (0.55-1.30) L Estimat Glomerular Filtration Rate > 60 mL/min (>60) Glucose Level 87 MG/DL (74-106) Calcium Level 8.8 MG/DL (8.5-10.1) Total Bilirubin 0.4 MG/DL (0.2-1.0) Aspartate Amino Transf (AST/SGOT) 46 U/L (15-37) H Alanine Aminotransferase (ALT/SGPT) 43 U/L (12-78) Alkaline Phosphatase 86 U/L (46-116) Total Protein 6.5 G/DL (6.4-8.2) Albumin 1.8 G/DL (3.4-5.0) L Globulin 4.7 g/dL Albumin/Globulin Ratio 0.4 (1.0-2.7) L Hepatitis A IgM Antibody Pending Hepatitis B Surface Antigen Pending Hepatitis B Core IgM Antibody Pending Hepatitis C Antibody Pending Height (Feet): 5 Height (Inches): 5.00 Weight (Pounds): 350 Medications Current Medications Medications (Trade) Dose Ordered Sig/Deborah Route PRN Reason Start Time Stop Time Status Last Admin Dose Admin Acetaminophen (Tylenol) 650 mg Q4H PRN ORAL Pain Scale (3-5) 09/23/17 09:30 10/23/17 09:29 09/26/17 04:49 Barium Sulfate (Readi-Cat 2) 450 ea NOW PRN ORAL Radiology Procedure 09/25/17 23:15 09/27/17 23:07 Ceftriaxone Sodium 1 gm/ Dextrose 55 ml @ 110 mls/hr DAILY IVPB 09/25/17 15:00 10/02/17 14:59 09/26/17 10:01 Chlorhexidine Gluconate (Maryse-Hex 2%) 1 applic DAILY@2000 TOPIC 09/24/17 20:00 10/24/17 19:59 09/26/17 21:10 Dextrose (Dextrose 50%) 25 ml STAT PRN IV Hypoglycemia 09/23/17 09:30 10/23/17 09:29 Dextrose (Dextrose 50%) 50 ml STAT PRN IV Hypoglycemia 09/23/17 09:30 10/23/17 09:29 Dextrose/ Electrolytes 1,000 ml @ 75 mls/hr [id number] IV 09/26/17 20:00 10/24/17 19:59 7/13/18 21:09 Hydralazine HCl (Apresoline) 10 mg Q4H PRN ORAL SBP > 160mmHg 09/24/17 09:00 10/24/17 08:59 Insulin Aspart (NovoLOG) BEFORE MEALS AND HS SUBQ 09/23/17 11:30 10/23/17 11:29 Levetiracetam (Keppra) 750 mg EVERY 12 HOURS ORAL 09/24/17 21:00 10/23/17 17:59 09/26/17 21:15 Ondansetron HCl (Zofran) 4 mg Q4H PRN ORAL Nausea & Vomiting 09/23/17 09:30 10/23/17 09:29 Pantoprazole (Protonix) 40 mg EVERY 12 HOURS IVP 09/26/17 09:00 10/23/17 16:59 09/26/17 21:10 Zonisamide (Zonegran) 300 mg DAILY ORAL 09/24/17 09:00 10/24/17 08:59 09/26/17 10:01 Tor Moura MD Sep 26, 2017 23:54
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
[2017-09-27] VITALS: BP 115/58
[2017-09-27 04:12] VITALS: BP 106/58
[2017-09-27] MEDS: NovoLOG Insulin Flexpen SUBQ SCH ×4 (06:19→20:36)
[2017-09-27] MEDS: Pantoprazole Inj IVP SCH ×2 (09:00→20:36)
[2017-09-27 09:41] VITALS: BP 120/55
--- NOTE | 2017-09-27 09:58 | General Progress Note ---
Assessment/Plan Status: stable Assessment/Plan 1. Anemia due to gastrointestinal bleed. --> Anemia panel has been reviewed, will trend daily. --> Rule out GI bleed. Dr. Puentes, GI Service, consulted. --> Hgb goal >7 2. Coagulopathy. Rule out liver disease. --> The patient to undergo endoscopy. --> Very minor at this time. 3. Pulmonary embolism. Obtain duplex of lower extremities. Rule out blood clots of lower extremities. 4. Transaminitis. 5. Obesity. Recommend weight loss. The time the note was entered does not necessarily correspond to the time the patient was seen. Subjective Date patient seen: Sep 27, 2017 ROS Limited/Unobtainable: Yes Hematologic/Lymphatic: Reports: anemia Allergies: Coded Allergies: No Known Allergies (Verified , 11/20/06) All Systems: reviewed and negative except above Subjective No acute events. Pt refusing NGT. CT reviewed. CBC ordered. Objective Last 24 Hour Vital Signs Date Time Temp Pulse Resp B/P (MAP) Pulse Ox O2 Delivery O2 Flow Rate FiO2 09/27/17 09:41 99.5 92 16 120/55 (76) 92 99.5 09/27/17 08:00 88 09/27/17 04:38 88 09/27/17 04:12 98.8 90 20 106/58 (74) 93 98.8 09/27/17 00:00 99.5 91 19 115/58 (77) 91 99.5 09/26/17 21:00 Nasal Cannula 3.0 09/26/17 20:00 99.5 94 19 106/55 (72) 91 99.5 09/26/17 20:00 91 09/26/17 16:00 98.6 86 18 102/58 (73) 95 98.6 09/26/17 16:00 89 09/26/17 12:00 85 09/26/17 12:00 98.2 87 20 118/64 (82) 97 98.2 Intake and Output 09/26/17 09/27/17 19:00 07:00 Intake Total 220 ml Output Total 500 ml Balance -280 ml Intake Oral 20 ml IV Total 200 ml Output Urine Total 500 ml Height (Feet): 5 Height (Inches): 5.00 Weight (Pounds): 350 General Appearance: no apparent distress EENT: PERRL/EOMI Neck: normal alignment Cardiovascular: normal peripheral pulses Respiratory/Chest: no respiratory distress Abdomen: distended Benito Garcia MD Sep 27, 2017 09:58
[2017-09-27] MEDS: cefTRIAXone 1 GM in D5W 55 ML IVPB SCH (10:44)
[2017-09-27] MEDS: D5 1/2NS w/KCl 20mEq 1,000 ML IV SCH ×2 (10:44→22:49)
[2017-09-27 12:09] VITALS: BP 119/65
--- NOTE | 2017-09-27 13:09 | General Progress Note ---
Assessment/Plan Problem List: (1) Morbid obesity ICD Codes: E66.01 - Morbid (severe) obesity due to excess calories SNOMED: 033922398 (2) Upper gastrointestinal bleed ICD Codes: K92.2 - Gastrointestinal hemorrhage, unspecified SNOMED: 78145851 (3) UTI (urinary tract infection) ICD Codes: N39.0 - Urinary tract infection, site not specified SNOMED: 34338478 Qualifiers: Qualified Codes: N39.0 - Urinary tract infection, site not specified Status: progressing Assessment/Plan s/p endoscopy egd shows severe esophagitis and antral ulcer do PPI moniter for gi bleeding has slow gi motility also has draining wound so consulted dr eng not ready for dc abx per id afebrile Subjective ROS Limited/Unobtainable: Yes Allergies: Coded Allergies: No Known Allergies (Verified , 11/20/06) Objective Last 24 Hour Vital Signs Date Time Temp Pulse Resp B/P (MAP) Pulse Ox O2 Delivery O2 Flow Rate FiO2 09/27/17 12:09 99.1 99 16 119/65 (83) 97 99.1 09/27/17 09:41 99.5 92 16 120/55 (76) 92 99.5 09/27/17 09:00 Nasal Cannula 3.0 09/27/17 08:00 88 09/27/17 04:38 88 09/27/17 04:12 98.8 90 20 106/58 (74) 93 98.8 09/27/17 00:00 99.5 91 19 115/58 (77) 91 99.5 09/26/17 21:00 Nasal Cannula 3.0 09/26/17 20:00 99.5 94 19 106/55 (72) 91 99.5 09/26/17 20:00 91 09/26/17 16:00 98.6 86 18 102/58 (73) 95 98.6 09/26/17 16:00 89 Intake and Output 09/26/17 09/27/17 19:00 07:00 Intake Total 220 ml Output Total 500 ml Balance -280 ml Intake Oral 20 ml IV Total 200 ml Output Urine Total 500 ml Height (Feet): 5 Height (Inches): 5.00 Weight (Pounds): 350 Cardiovascular: normal rate Abdomen: soft Colt Dietrich MD Sep 27, 2017 13:09
--- NOTE | 2017-09-27 13:58 | Consultation ---
History of Present Illness General Date patient seen: Sep 27, 2017 Chief Complaint: Vomiting Reason for Consultation: gastric distention, surgical wound Present Illness HPI 51F noted UGIB s/p endoscopy with esophagitis and gastric ulcer noted to have gastric retention on CT with high residual despite obstruction being noted. also noted to have drainage from surgical wound on right hip. recent fall s/p right hip surgery by ortho. surgical nery in place but serous drainage noted. surgery called to evaluate for above. patient seen, chart reviewed, patient examined. Allergies: Coded Allergies: No Known Allergies (Verified , 11/20/06) Medication History Scheduled Levetiracetam (Levetiracetam), 750 MG ORAL TWICE A DAY, (Reported) Zonisamide* (Zonegran*), 3 CAP ORAL DAILY, (Reported) Scheduled PRN Acetaminophen* (Acetaminophen 325MG Tablet*), 650 MG ORAL Q4H PRN for Pain Scale (3-5), (Reported) Hydralazine Hcl* (Hydralazine Hcl*), 10 MG ORAL EVERY 4 HOURS PRN for For High Blood Pressure, (Reported) Hydrocodone Bit/Acetaminophen 5-325* ([place] 5-325*), 1 TAB ORAL Q4H PRN for Moderate Breakthru Pain (5-7), (Reported) Hydrocodone Bit/Acetaminophen 5-325* ([place] 5-325*), 2 TAB ORAL Q4H PRN for Severe Pain (Pain Scale 7-10), (Reported) Ondansetron* (Zofran*), 4 MG ORAL Q4HR PRN for Nausea & Vomiting, (Reported) Miscellaneous Medications Insulin Lispro (Humalog), 0 SUBQ, (Reported) Patient History History Provided By: Patient, Medical Record, PMD Healthcare decision maker Resuscitation status Full Code Advanced Directive on File Past Medical/Surgical History Past Medical/Surgical History: (1) Surgical wound, non healing (2) Gastroparesis (3) Morbid obesity (4) UTI (urinary tract infection) (5) Upper gastrointestinal bleed Review of Systems All Other Systems: negative except mentioned in HPI Physical Exam General Appearance: no apparent distress HEENT: normocephalic, mucous membranes moist Neck: normal inspection Respiratory/Chest: normal breath sounds, no respiratory distress, no accessory muscle use Cardiovascular/Chest: normal rate Abdomen: soft, hypoactive bowel sounds Extremities: normal inspection Skin Exam: warm/dry, other - right hip wound with nery and serosang drainage Neurologic: alert, responsive Last 24 Hour Vital Signs Date Time Temp Pulse Resp B/P (MAP) Pulse Ox O2 Delivery O2 Flow Rate FiO2 09/27/17 12:09 99.1 99 16 119/65 (83) 97 99.1 09/27/17 09:41 99.5 92 16 120/55 (76) 92 99.5 09/27/17 09:00 Nasal Cannula 3.0 09/27/17 08:00 88 09/27/17 04:38 88 09/27/17 04:12 98.8 90 20 106/58 (74) 93 98.8 09/27/17 00:00 99.5 91 19 115/58 (77) 91 99.5 09/26/17 21:00 Nasal Cannula 3.0 09/26/17 20:00 99.5 94 19 106/55 (72) 91 99.5 09/26/17 20:00 91 09/26/17 16:00 98.6 86 18 102/58 (73) 95 98.6 09/26/17 16:00 89 Intake and Output 09/26/17 09/27/17 19:00 07:00 Intake Total 220 ml Output Total 500 ml Balance -280 ml Intake Oral 20 ml IV Total 200 ml Output Urine Total 500 ml Height (Feet): 5 Height (Inches): 5.00 Weight (Pounds): 350 Medications Current Medications Medications (Trade) Dose Ordered Sig/Deborah Route PRN Reason Start Time Stop Time Status Last Admin Dose Admin Acetaminophen (Tylenol) 650 mg Q4H PRN ORAL Pain Scale (3-5) 09/23/17 09:30 10/23/17 09:29 09/27/17 11:28 Barium Sulfate (Readi-Cat 2) 450 ea NOW PRN ORAL Radiology Procedure 09/25/17 23:15 09/27/17 23:07 Chlorhexidine Gluconate (Maryse-Hex 2%) 1 applic DAILY@1999 TOPIC 09/24/17 20:00 10/24/17 19:59 09/26/17 21:10 Dextrose (Dextrose 50%) 25 ml STAT PRN IV Hypoglycemia 09/23/17 09:30 10/23/17 09:29 Dextrose (Dextrose 50%) 50 ml STAT PRN IV Hypoglycemia 09/23/17 09:30 10/23/17 09:29 Dextrose/ Electrolytes 1,000 ml @ 75 mls/hr [id number] IV 09/26/17 20:00 10/24/17 19:59 09/27/17 10:44 Hydralazine HCl (Apresoline) 10 mg Q4H PRN ORAL SBP > 160mmHg 09/24/17 09:00 10/24/17 08:59 Insulin Aspart (NovoLOG) BEFORE MEALS AND HS SUBQ 09/23/17 11:30 10/23/17 11:29 Levetiracetam (Keppra) 750 mg EVERY 12 HOURS ORAL 09/24/17 21:00 10/23/17 17:59 09/26/17 21:15 Ondansetron HCl (Zofran) 4 mg Q4H PRN ORAL Nausea & Vomiting 09/23/17 09:30 10/23/17 09:29 Pantoprazole (Protonix) 40 mg EVERY 12 HOURS IVP 09/26/17 09:00 10/23/17 16:59 09/26/17 21:10 Piperacillin Sod/ Tazobactam Sod 3.375 gm/Dextrose 110 ml @ 27.5 mls/hr EVERY 8 HOURS IVPB 09/27/17 14:00 10/02/17 13:59 Vancomycin HCl (Vanco rx to dose) 1 ea DAILY PRN MISC Per rx protocol 09/27/17 12:45 10/27/17 12:44 Vancomycin HCl 1 gm/Dextrose 275 ml @ 183.708 mls/hr Q8HR@0200,1000,1800 IVPB 09/28/17 02:00 10/03/17 01:59 Vancomycin HCl/ Dextrose 250 ml @ 125 mls/hr ONCE ONCE IVPB 09/27/17 18:00 09/27/17 19:59 Zonisamide (Zonegran) 300 mg DAILY ORAL 09/24/17 09:00 10/24/17 08:59 09/26/17 10:01 Assessment/Plan Problem List: (1) Upper gastrointestinal bleed Assessment & Plan: esophagitis and gastric ulcer. no acute surgical intervention necessary. Tx as per GI. gastric retention could be functional or ileus in nature. GI rest will monitor KUB tomorrow ICD Codes: K92.2 - Gastrointestinal hemorrhage, unspecified SNOMED: 71227716 (2) Surgical wound, non healing Assessment & Plan: right hip fx s/p ortho repair. surgical wound site with serosang drainage. odor per report. very large obese lady with lots of subcutaneous fat. CT reviewed. does not seem to be deep infection and more subcutaneous tissue non healing. few nery removed at bedside and seroma allowed to drain. no pus or overly infected tissue noted. packing and dressings TID and prn saturation ortho evaluation to ensure no deep surgical site ICD Codes: T81.89XA - Other complications of procedures, not elsewhere classified, initial encounter SNOMED: 834460309 (3) Gastroparesis Assessment & Plan: gastric retention could be functional or ileus in nature. GI rest - await return of bowel function will monitor KUB tomorrow ICD Codes: K31.84 - Gastroparesis SNOMED: 329260577 Status: stable JorgeYadiel Sep 27, 2017 13:58
[2017-09-27] MEDS: Piperacillin/Tazobactam 3.375 GM in D5W 110 ML IVPB SCH ×2 (15:30→22:17)
[2017-09-27] MEDS ORDERED: NS 275ml ONE (15:34)
[2017-09-27] MEDS ORDERED: Tubing IV Secondary IV ONE (15:34)
[2017-09-27 16:00] VITALS: BP 123/63
[2017-09-27 16:46] LABS: BASOPHILS % (AUTO) 0.6 % (0.0-2.0); EOSINOPHILS % (AUTO) 0.1 % (0.0-3.0); HEMATOCRIT 25.2 % (37.0-47.0); HEMOGLOBIN 8.2 G/DL (12.0-16.0); LYMPHOCYTES % (AUTO) 8.7 % (20.0-45.0); MEAN CORPUSCULAR VOLUME 82 FL (80-99); MONOCYTES % (AUTO) 7.3 % (1.0-10.0); NEUTROPHILS % (AUTO) 83.3 % (45.0-75.0); PLATELET COUNT 299 K/UL (150-450); RED BLOOD COUNT 3.05 M/UL (4.20-5.40); RED CELL DISTRIBUTION WIDTH 13.5 % (11.6-14.8); WHITE BLOOD COUNT 10.5 K/UL (4.8-10.8)
--- NOTE | 2017-09-27 17:17 | General Progress Note ---
Assessment/Plan Assessment/Plan Assessment - UGIB - GERD and gastric ulcer - soft tissues changes seen on CT - due to (R) hip wound complication - gastroparesis - Anemia - Mild transaminitis - obesity Recommendation - continue abx - surgical opinion - follow LFT - PPI - follow labs Subjective Allergies: Coded Allergies: No Known Allergies (Verified , 11/20/06) Subjective above noted patient w/o focal complaints Objective Last 24 Hour Vital Signs Date Time Temp Pulse Resp B/P (MAP) Pulse Ox O2 Delivery O2 Flow Rate FiO2 09/27/17 16:00 94 09/27/17 16:00 99.1 94 22 123/63 (83) 96 99.1 09/27/17 12:09 99.1 99 16 119/65 (83) 97 99.1 09/27/17 12:00 101 09/27/17 09:41 99.5 92 16 120/55 (76) 92 99.5 09/27/17 09:00 Nasal Cannula 3.0 09/27/17 08:00 88 09/27/17 04:38 88 09/27/17 04:12 98.8 90 20 106/58 (74) 93 98.8 09/27/17 00:00 99.5 91 19 115/58 (77) 91 99.5 09/26/17 21:00 Nasal Cannula 3.0 09/26/17 20:00 99.5 94 19 106/55 (72) 91 99.5 09/26/17 20:00 91 Intake and Output 09/26/17 09/27/17 19:00 07:00 Intake Total 220 ml Output Total 500 ml Balance -280 ml Intake Oral 20 ml IV Total 200 ml Output Urine Total 500 ml Laboratory Tests 09/27/17 16:20: White Blood Count 10.5, Red Blood Count 3.05L, Hemoglobin 8.2L, Hematocrit 25.2L , Mean Corpuscular Volume 82, Mean Corpuscular Hemoglobin 26.7L, Mean Corpuscular Hemoglobin Concent 32.4, Red Cell Distribution Width 13.5, Platelet Count 299, Mean Platelet Volume 4.8L, Neutrophils (%) (Auto) 83.3H, Lymphocytes (%) (Auto) 8.7L, Monocytes (%) (Auto) 7.3, Eosinophils (%) (Auto) 0.1, Basophils (%) (Auto) 0.6 Height (Feet): 5 Height (Inches): 5.00 Weight (Pounds): 350 Objective WDWN NCAT supple CTA RRR abd soft obesity (+) (R) hip wound with drainage and gas discharge (+) edema Gallo Puentes MD Sep 27, 2017 17:17
[2017-09-27] MEDS ORDERED: Vancomycin 1.5 GM/D5W 250ML IVPB ONE (18:00)
[2017-09-27 20:00] VITALS: BP 116/50
[2017-09-27] MEDS: Dyna-Hex 2% Top Sol 2oz TOPIC SCH (20:36)
[2017-09-28] VITALS (7 sets, daily range): BP systolic 100–118; BP diastolic 49–67
[2017-09-28] MEDS: Vancomycin 1gm/D5W 275ml IVPB SCH ×4 (02:18→10:52)
[2017-09-28] MEDS: Piperacillin/Tazobactam 3.375 GM in D5W 110 ML IVPB SCH ×3 (05:59→22:47)
[2017-09-28] MEDS: NovoLOG Insulin Flexpen SUBQ SCH ×4 (06:00→21:00)
[2017-09-28] MEDS: Pantoprazole Inj IVP SCH ×2 (09:28→20:38)
--- NOTE | 2017-09-28 10:28 | Diagnostic Imaging Report ---
EXAM: XR Abdomen, 2 Views CLINICAL HISTORY: ABD DIST TECHNIQUE: Frontal view of the abdomen/pelvis with upright view of the abdomen. COMPARISON: CT abdomen and pelvis 09/26/17 FINDINGS: Intraperitoneal space: No free air. Gastrointestinal tract: Moderately gas distended stomach. Gassy small bowel and colonic bowel loops. Findings may be an ileus. Contrast is seen to the rectum. No high-grade obstruction. Bones/joints: Right femoral intramedullary wilton and dynamic hip screw. Vasculature: Phleboliths in the pelvis. IMPRESSION: Moderately gas distended stomach. Gassy small bowel and colonic bowel loops. Findings may be an ileus. Contrast is seen to the rectum. No high-grade obstruction.
[2017-09-28 10:46] LABS: ALANINE AMINOTRANSFERASE 35 U/L (12-78); ALBUMIN 1.8 G/DL (3.4-5.0); ALBUMIN/GLOBULIN RATIO 0.4 (1.0-2.7); ALKALINE PHOSPHATASE 85 U/L (46-116); ANION GAP 3 mmol/L (5-15); ASPARTATE AMINO TRANSFERASE 42 U/L (15-37); BILIRUBIN,TOTAL 0.3 MG/DL (0.2-1.0); BLOOD UREA NITROGEN 5 mg/dL (7-18); CALCIUM 8.6 MG/DL (8.5-10.1); CARBON DIOXIDE 29 MMOL/L (21-32); CHLORIDE 105 MMOL/L (98-107); CREATININE 0.5 MG/DL (0.55-1.30); POTASSIUM 3.8 MMOL/L (3.5-5.1); SODIUM 137 MMOL/L (136-145)
[2017-09-28] MEDS: D5 1/2NS w/KCl 20mEq 1,000 ML IV SCH ×2 (12:00→20:38)
--- NOTE | 2017-09-28 12:10 | Infectious Diseases Prog Note ---
Assessment/Plan Assessment/Plan 1. E.coli UTI 2. leucocytosis resolved 3. Gastric ulcer 4. diabetes mellitus 5. hypertension 6. seizures 7. Morbid obesity 8. R hip surgical site infection P 1. continue Vancomycin & Zosyn 2. will follow up cultures 3, R hip X-ray Subjective ROS Limited/Unobtainable: No Constitutional: Reports: no symptoms Respiratory: Reports: no symptoms Cardiovascular: Reports: no symptoms Gastrointestinal/Abdominal: Reports: no symptoms Skin: Reports: other - discharge from hip surgical site Allergies: Coded Allergies: No Known Allergies (Verified , 11/20/06) Objective Vital Signs Last 24 Hour Vital Signs Date Time Temp Pulse Resp B/P (MAP) Pulse Ox O2 Delivery O2 Flow Rate FiO2 09/28/17 09:00 Nasal Cannula 3.0 09/28/17 08:00 98.3 79 2 101/49 (66) 100 98.3 09/28/17 04:00 98.9 83 20 112/67 (82) 97 98.9 09/28/17 03:59 80 09/28/17 00:00 98.6 80 18 100/53 (69) 96 98.6 09/27/17 23:29 84 09/27/17 21:37 99.1 09/27/17 21:00 Nasal Cannula 3.0 09/27/17 20:38 100.2 09/27/17 20:00 100.2 88 20 116/50 (72) 97 100.2 09/27/17 19:02 88 09/27/17 16:00 94 09/27/17 16:00 99.1 94 22 123/63 (83) 96 99.1 09/27/17 12:09 99.1 99 16 119/65 (83) 97 99.1 Height (Feet): 5 Height (Inches): 5.00 Weight (Pounds): 350 HEENT: mucous membranes moist Respiratory/Chest: lungs clear Cardiovascular: normal rate Abdomen: soft, non tender Extremities: other - edema of legs Skin: other - R hip surgical site dressing Neurologic/Psychiatric: alert, responsive Microbiology Date/Time Source Procedure Growth Status 09/27/17 16:10 Wound Gram Stain Pending Resulted 09/27/17 16:10 Wound Culture - Preliminary Gram Negative Bacillus 1 Resulted Laboratory Tests Test 09/27/17 16:20 7/15/18 10:15 White Blood Count 10.5 K/UL (4.8-10.8) Red Blood Count 3.05 M/UL (4.20-5.40) L Hemoglobin 8.2 G/DL (12.0-16.0) L Hematocrit 25.2 % (37.0-47.0) L Mean Corpuscular Volume 82 FL (80-99) Mean Corpuscular Hemoglobin 26.7 PG (27.0-31.0) L Mean Corpuscular Hemoglobin Concent 32.4 G/DL (32.0-36.0) Red Cell Distribution Width 13.5 % (11.6-14.8) Platelet Count 299 K/UL (150-450) Mean Platelet Volume 4.8 FL (6.5-10.1) L Neutrophils (%) (Auto) 83.3 % (45.0-75.0) H Lymphocytes (%) (Auto) 8.7 % (20.0-45.0) L Monocytes (%) (Auto) 7.3 % (1.0-10.0) Eosinophils (%) (Auto) 0.1 % (0.0-3.0) Basophils (%) (Auto) 0.6 % (0.0-2.0) Sodium Level 137 MMOL/L (136-145) Potassium Level 3.8 MMOL/L (3.5-5.1) Chloride Level 105 MMOL/L (98-107) Carbon Dioxide Level 29 MMOL/L (21-32) Anion Gap 3 mmol/L (5-15) L Blood Urea Nitrogen 5 mg/dL (7-18) L Creatinine 0.5 MG/DL (0.55-1.30) L Estimat Glomerular Filtration Rate > 60 mL/min (>60) Glucose Level 95 MG/DL (74-106) Calcium Level 8.6 MG/DL (8.5-10.1) Total Bilirubin 0.3 MG/DL (0.2-1.0) Aspartate Amino Transf (AST/SGOT) 42 U/L (15-37) H Alanine Aminotransferase (ALT/SGPT) 35 U/L (12-78) Alkaline Phosphatase 85 U/L (46-116) Total Protein 6.3 G/DL (6.4-8.2) L Albumin 1.8 G/DL (3.4-5.0) L Globulin 4.5 g/dL Albumin/Globulin Ratio 0.4 (1.0-2.7) L Current Medications Medications (Trade) Dose Ordered Sig/Deborah Route PRN Reason Start Time Stop Time Status Last Admin Dose Admin Acetaminophen (Tylenol) 650 mg Q4H PRN ORAL Pain Scale (3-5) 09/23/17 09:30 10/23/17 09:29 09/27/17 20:38 Chlorhexidine Gluconate (Maryse-Hex 2%) 1 applic DAILY@2000 TOPIC 09/24/17 20:00 10/24/17 19:59 09/27/17 20:36 Dextrose (Dextrose 50%) 25 ml STAT PRN IV Hypoglycemia 09/23/17 09:30 10/23/17 09:29 Dextrose (Dextrose 50%) 50 ml STAT PRN IV Hypoglycemia 09/23/17 09:30 10/23/17 09:29 Dextrose/ Electrolytes 1,000 ml @ 75 mls/hr [id number] IV 09/26/17 20:00 10/24/17 19:59 09/27/17 22:49 Hydralazine HCl (Apresoline) 10 mg Q4H PRN ORAL SBP > 160mmHg 09/24/17 09:00 10/24/17 08:59 Insulin Aspart (NovoLOG) BEFORE MEALS AND HS SUBQ 09/23/17 11:30 10/23/17 11:29 09/28/17 12:01 Levetiracetam (Keppra) 750 mg EVERY 12 HOURS ORAL 09/24/17 21:00 10/23/17 17:59 09/28/17 09:27 Ondansetron HCl (Zofran) 4 mg Q4H PRN ORAL Nausea & Vomiting 09/23/17 09:30 10/23/17 09:29 Pantoprazole (Protonix) 40 mg EVERY 12 HOURS IVP 09/26/17 09:00 10/23/17 16:59 09/28/17 09:28 Piperacillin Sod/ Tazobactam Sod 3.375 gm/Dextrose 110 ml @ 27.5 mls/hr EVERY 8 HOURS IVPB 09/27/17 14:00 10/02/17 13:59 09/28/17 05:59 Vancomycin HCl (Vanco rx to dose) 1 ea DAILY PRN MISC Per rx protocol 09/27/17 12:45 10/27/17 12:44 Vancomycin HCl 1 gm/Dextrose 275 ml @ 183.708 mls/hr Q8HR@0200,1000,1800 IVPB 09/28/17 02:00 10/03/17 01:59 09/28/17 10:52 Zonisamide (Zonegran) 300 mg DAILY ORAL 09/24/17 09:00 10/24/17 08:59 09/28/17 09:28 Ady Campuzano MD Sep 28, 2017 12:10
--- NOTE | 2017-09-28 12:33 | General Surgery Progress Note ---
General Surgery-Progress Note Subjective Additional Comments doing well. eating lunch without complaints. no n/v/f/c. wound with serous drainage. cultures reviewed Objective Last 24 Hour Vital Signs Date Time Temp Pulse Resp B/P (MAP) Pulse Ox O2 Delivery O2 Flow Rate FiO2 09/28/17 09:00 Nasal Cannula 3.0 09/28/17 08:00 98.3 79 2 101/49 (66) 100 98.3 09/28/17 04:00 98.9 83 20 112/67 (82) 97 98.9 09/28/17 03:59 80 09/28/17 00:00 98.6 80 18 100/53 (69) 96 98.6 09/27/17 23:29 84 09/27/17 21:37 99.1 09/27/17 21:00 Nasal Cannula 3.0 09/27/17 20:38 100.2 09/27/17 20:00 100.2 88 20 116/50 (72) 97 100.2 09/27/17 19:02 88 09/27/17 16:00 94 09/27/17 16:00 99.1 94 22 123/63 (83) 96 99.1 I&O Intake and Output 09/27/17 09/28/17 19:00 07:00 Intake Total 1123.700 ml Output Total 250 ml Balance 873.700 ml Intake Oral 50 ml IV Total 1073.700 ml Output Urine Total 250 ml Dressing: saturated Wound: clean Drains: none Cardiovascular: RSR Respiratory: clear Abdomen: soft, distended, present bowel sounds Extremities: no cyanosis Laboratory Tests Test 09/27/17 16:20 09/28/17 10:15 White Blood Count 10.5 K/UL (4.8-10.8) Red Blood Count 3.05 M/UL (4.20-5.40) L Hemoglobin 8.2 G/DL (12.0-16.0) L Hematocrit 25.2 % (37.0-47.0) L Mean Corpuscular Volume 82 FL (80-99) Mean Corpuscular Hemoglobin 26.7 PG (27.0-31.0) L Mean Corpuscular Hemoglobin Concent 32.4 G/DL (32.0-36.0) Red Cell Distribution Width 13.5 % (11.6-14.8) Platelet Count 299 K/UL (150-450) Mean Platelet Volume 4.8 FL (6.5-10.1) L Neutrophils (%) (Auto) 83.3 % (45.0-75.0) H Lymphocytes (%) (Auto) 8.7 % (20.0-45.0) L Monocytes (%) (Auto) 7.3 % (1.0-10.0) Eosinophils (%) (Auto) 0.1 % (0.0-3.0) Basophils (%) (Auto) 0.6 % (0.0-2.0) Sodium Level 137 MMOL/L (136-145) Potassium Level 3.8 MMOL/L (3.5-5.1) Chloride Level 105 MMOL/L (98-107) Carbon Dioxide Level 29 MMOL/L (21-32) Anion Gap 3 mmol/L (5-15) L Blood Urea Nitrogen 5 mg/dL (7-18) L Creatinine 0.5 MG/DL (0.55-1.30) L Estimat Glomerular Filtration Rate > 60 mL/min (>60) Glucose Level 95 MG/DL (74-106) Calcium Level 8.6 MG/DL (8.5-10.1) Total Bilirubin 0.3 MG/DL (0.2-1.0) Aspartate Amino Transf (AST/SGOT) 42 U/L (15-37) H Alanine Aminotransferase (ALT/SGPT) 35 U/L (12-78) Alkaline Phosphatase 85 U/L (46-116) Total Protein 6.3 G/DL (6.4-8.2) L Albumin 1.8 G/DL (3.4-5.0) L Globulin 4.5 g/dL Albumin/Globulin Ratio 0.4 (1.0-2.7) L Plan Problems: (1) Upper gastrointestinal bleed Assessment & Plan: esophagitis and gastric ulcer. no acute surgical intervention necessary. Tx as per GI. gastric retention could be functional or ileus in nature. GI rest will monitor (2) Surgical wound, non healing Assessment & Plan: right hip fx s/p ortho repair. surgical wound site with serosang drainage. odor per report. very large obese lady with lots of subcutaneous fat. CT reviewed. does not seem to be deep infection and more subcutaneous tissue non healing. few nery removed at bedside and seroma allowed to drain. no pus or overly infected tissue noted. cultures pending packing and dressings TID and prn saturation ortho evaluation to ensure no deep surgical site (3) Gastroparesis Assessment & Plan: gastric retention could be functional or ileus in nature. GI rest - await return of bowel function will monitor Yadiel Patel Sep 28, 2017 12:33
[2017-09-28] MEDS: Metoclopramide 10mg/2ml Inj IVPB SCH ×2 (14:05→22:47)
--- NOTE | 2017-09-28 14:30 | General Progress Note ---
Assessment/Plan Assessment/Plan Assessment - UGIB - GERD and gastric ulcer - (R) hip wound complication - gastroparesis - Anemia - Mild transaminitis - obesity Recommendation - continue abx - surgical f/u - follow LFT - PPI - follow labs Subjective Allergies: Coded Allergies: No Known Allergies (Verified , 11/20/06) Subjective above noted patient w/o focal complaints Objective Last 24 Hour Vital Signs Date Time Temp Pulse Resp B/P (MAP) Pulse Ox O2 Delivery O2 Flow Rate FiO2 09/28/17 12:00 98.2 87 21 109/63 (78) 99 98.2 09/28/17 12:00 84 09/28/17 09:00 Nasal Cannula 3.0 09/28/17 08:01 98.3 79 20 101/49 (66) 100 98.3 09/28/17 08:00 88 09/28/17 04:00 98.9 83 20 112/67 (82) 97 98.9 09/28/17 03:59 80 09/28/17 00:00 98.6 80 18 100/53 (69) 96 98.6 09/27/17 23:29 84 09/27/17 21:37 99.1 09/27/17 21:00 Nasal Cannula 3.0 09/27/17 20:38 100.2 09/27/17 20:00 100.2 88 20 116/50 (72) 97 100.2 09/27/17 19:02 88 09/27/17 16:00 94 09/27/17 16:00 99.1 94 22 123/63 (83) 96 99.1 Intake and Output 09/27/17 09/28/17 19:00 07:00 Intake Total 1123.700 ml Output Total 250 ml Balance 873.700 ml Intake Oral 50 ml IV Total 1073.700 ml Output Urine Total 250 ml Laboratory Tests 09/27/17 16:20: White Blood Count 10.5, Red Blood Count 3.05L, Hemoglobin 8.2L, Hematocrit 25.2L , Mean Corpuscular Volume 82, Mean Corpuscular Hemoglobin 26.7L, Mean Corpuscular Hemoglobin Concent 32.4, Red Cell Distribution Width 13.5, Platelet Count 299, Mean Platelet Volume 4.8L, Neutrophils (%) (Auto) 83.3H, Lymphocytes (%) (Auto) 8.7L, Monocytes (%) (Auto) 7.3, Eosinophils (%) (Auto) 0.1, Basophils (%) (Auto) 0.6 09/28/17 10:15: Sodium Level 137, Potassium Level 3.8, Chloride Level 105, Carbon Dioxide Level 29, Anion Gap 3L, Blood Urea Nitrogen 5L, Creatinine 0.5L, Estimat Glomerular Filtration Rate > 60, Glucose Level 95, Calcium Level 8.6, Total Bilirubin 0.3, Aspartate Amino Transf (AST/SGOT) 42H, Alanine Aminotransferase (ALT/SGPT) 35, Alkaline Phosphatase 85, Total Protein 6.3L, Albumin 1.8L, Globulin 4.5, Albumin /Globulin Ratio 0.4L Height (Feet): 5 Height (Inches): 5.00 Weight (Pounds): 350 Objective WDWN NCAT supple CTA RRR abd soft obesity, (+) (R) hip wound (+) edema Gallo Puentes MD Sep 28, 2017 14:30
[2017-09-28] MEDS: Dyna-Hex 2% Top Sol 2oz TOPIC SCH (20:09)
[2017-09-28] MEDS: Vancomycin 1.5gm/D5W 250ml 250 ML IVPB SCH (20:39)
--- NOTE | 2017-09-28 21:48 | General Progress Note ---
Assessment/Plan Problem List: (1) Morbid obesity ICD Codes: E66.01 - Morbid (severe) obesity due to excess calories SNOMED: 295781992 (2) Upper gastrointestinal bleed ICD Codes: K92.2 - Gastrointestinal hemorrhage, unspecified SNOMED: 24850182 (3) UTI (urinary tract infection) ICD Codes: N39.0 - Urinary tract infection, site not specified SNOMED: 94208791 Qualifiers: Qualified Codes: N39.0 - Urinary tract infection, site not specified Status: progressing Assessment/Plan s/p endoscopy egd shows severe esophagitis and antral ulcer check h/h moniter for gi bleeding has slow gi motility also has draining wound reivewed chart Subjective ROS Limited/Unobtainable: Yes Allergies: Coded Allergies: No Known Allergies (Verified , 11/20/06) Objective Last 24 Hour Vital Signs Date Time Temp Pulse Resp B/P (MAP) Pulse Ox O2 Delivery O2 Flow Rate FiO2 09/28/17 20:00 98.8 91 18 110/58 (75) 97 98.8 09/28/17 16:08 82 09/28/17 15:58 97.3 85 18 118/59 (78) 97 97.3 09/28/17 12:00 98.2 87 21 109/63 (78) 99 98.2 09/28/17 12:00 84 09/28/17 09:00 Nasal Cannula 3.0 09/28/17 08:01 98.3 79 20 101/49 (66) 100 98.3 09/28/17 08:00 88 09/28/17 04:00 98.9 83 20 112/67 (82) 97 98.9 09/28/17 03:59 80 09/28/17 00:00 98.6 80 18 100/53 (69) 96 98.6 09/27/17 23:29 84 Intake and Output 09/27/17 09/28/17 19:00 07:00 Intake Total 1198.700 ml Output Total 250 ml Balance 948.700 ml Intake Oral 50 ml IV Total 1148.700 ml Output Urine Total 250 ml Laboratory Tests 09/28/17 10:15: Sodium Level 137, Potassium Level 3.8, Chloride Level 105, Carbon Dioxide Level 29, Anion Gap 3L, Blood Urea Nitrogen 5L, Creatinine 0.5L, Estimat Glomerular Filtration Rate > 60, Glucose Level 95, Calcium Level 8.6, Total Bilirubin 0.3, Aspartate Amino Transf (AST/SGOT) 42H, Alanine Aminotransferase (ALT/SGPT) 35, Alkaline Phosphatase 85, Total Protein 6.3L, Albumin 1.8L, Globulin 4.5, Albumin /Globulin Ratio 0.4L 09/28/17 17:20: Vancomycin Level Trough 17.8H Height (Feet): 5 Height (Inches): 5.00 Weight (Pounds): 350 Colt Dietrich MD Sep 28, 2017 21:48
[2017-09-29] VITALS: BP 118/61
[2017-09-29 04:00] VITALS: BP 103/61
[2017-09-29] MEDS: Piperacillin/Tazobactam 3.375 GM in D5W 110 ML IVPB SCH (05:50)
[2017-09-29] MEDS: Metoclopramide 10mg/2ml Inj IVPB SCH ×3 (05:52→21:47)
[2017-09-29] MEDS: NovoLOG Insulin Flexpen SUBQ SCH ×4 (06:30→20:22)
[2017-09-29 08:00] VITALS: BP 114/66
[2017-09-29] MEDS: Vancomycin 1.5gm/D5W 250ml 250 ML IVPB SCH (08:23)
[2017-09-29] MEDS: Pantoprazole Inj IVP SCH ×2 (08:24→20:08)
--- NOTE | 2017-09-29 11:24 | Diagnostic Imaging Report ---
Indication: Right hip pain Technique: 2 views of the right hip Comparison: no comparison radiographs. Reference made to CT abdomen and pelvis dated 09/26/2017 Findings: Exam is extremely limited, due to patient body habitus. Surgical hardware is seen reducing what is apparently an ununited intertrochanteric fracture. The femoral head is not adequately visualized. There is right lower flank soft tissue gas. Impression:. Limited exam, as described Status post recent right hip surgery, no definite unusual features Right lower flank soft tissue gas, presumably related to the above, also demonstrated on recent CT scan
[2017-09-29 12:00] VITALS: BP 118/72
--- NOTE | 2017-09-29 12:09 | General Progress Note ---
Assessment/Plan Status: stable Assessment/Plan 1. Anemia due to gastrointestinal bleed. --> Anemia panel has been reviewed, will trend daily. --> Rule out GI bleed. Dr. Puentes, GI Service, consulted. --> Hgb goal >7 2. Coagulopathy. Rule out liver disease. --> The patient to undergo endoscopy. --> Very minor at this time. 3. Pulmonary embolism. Obtain duplex of lower extremities. Rule out blood clots of lower extremities. 4. Transaminitis. 5. Obesity. Recommend weight loss. The time the note was entered does not necessarily correspond to the time the patient was seen. Subjective Date patient seen: Sep 28, 2017 ROS Limited/Unobtainable: Yes Hematologic/Lymphatic: Reports: anemia Allergies: Coded Allergies: No Known Allergies (Verified , 11/20/06) All Systems: reviewed and negative except above Subjective No acute events. No active bleeding. Objective Last 24 Hour Vital Signs Date Time Temp Pulse Resp B/P (MAP) Pulse Ox O2 Delivery O2 Flow Rate FiO2 09/29/17 09:00 Nasal Cannula 3.0 09/29/17 08:00 88 09/29/17 08:00 98.4 83 19 114/66 (82) 100 98.4 09/29/17 04:00 85 09/29/17 04:00 99.0 86 18 103/61 (75) 100 99.0 09/29/17 00:00 98.8 91 18 118/61 (80) 100 98.8 09/29/17 00:00 91 09/28/17 21:00 Nasal Cannula 3.0 09/28/17 20:00 86 09/28/17 20:00 98.8 91 18 110/58 (75) 97 98.8 09/28/17 16:08 82 09/28/17 15:58 97.3 85 18 118/59 (78) 97 97.3 Intake and Output 09/28/17 09/29/17 19:00 07:00 Intake Total 1550 ml 1264.5 ml Output Total 675 ml 500 ml Balance 875 ml 764.5 ml Intake Oral 840 ml 100 ml IV Total 710 ml 1164.5 ml Output Urine Total 675 ml 500 ml Laboratory Tests 09/28/17 17:20: Vancomycin Level Trough 17.8H Height (Feet): 5 Height (Inches): 5.00 Weight (Pounds): 350 General Appearance: no apparent distress EENT: PERRL/EOMI Neck: normal alignment Cardiovascular: normal peripheral pulses Respiratory/Chest: no respiratory distress Abdomen: soft, no organomegaly Benito Garcia MD Sep 29, 2017 12:09
--- NOTE | 2017-09-29 12:16 | General Progress Note ---
Assessment/Plan Status: stable Assessment/Plan 1. Anemia due to gastrointestinal bleed. --> Anemia panel has been reviewed, will trend daily. --> Rule out GI bleed. Dr. Puentes, GI Service, consulted. --> Hgb goal >7 2. Coagulopathy. Rule out liver disease. --> The patient to undergo endoscopy. --> Very minor at this time. 3. Pulmonary embolism. Obtain duplex of lower extremities. Rule out blood clots of lower extremities. 4. Transaminitis. 5. Obesity. Recommend weight loss. The time the note was entered does not necessarily correspond to the time the patient was seen. Subjective Date patient seen: Sep 29, 2017 Hematologic/Lymphatic: Reports: anemia Allergies: Coded Allergies: No Known Allergies (Verified , 11/20/06) All Systems: reviewed and negative except above Subjective No acute events. No active bleeding. Vitals are stable. Objective Last 24 Hour Vital Signs Date Time Temp Pulse Resp B/P (MAP) Pulse Ox O2 Delivery O2 Flow Rate FiO2 09/29/17 09:00 Nasal Cannula 3.0 09/29/17 08:00 88 09/29/17 08:00 98.4 83 19 114/66 (82) 100 98.4 09/29/17 04:00 85 09/29/17 04:00 99.0 86 18 103/61 (75) 100 99.0 09/29/17 00:00 98.8 91 18 118/61 (80) 100 98.8 09/29/17 00:00 91 09/28/17 21:00 Nasal Cannula 3.0 09/28/17 20:00 86 09/28/17 20:00 98.8 91 18 110/58 (75) 97 98.8 09/28/17 16:08 82 09/28/17 15:58 97.3 85 18 118/59 (78) 97 97.3 Intake and Output 09/28/17 09/29/17 19:00 07:00 Intake Total 1550 ml 1264.5 ml Output Total 675 ml 500 ml Balance 875 ml 764.5 ml Intake Oral 840 ml 100 ml IV Total 710 ml 1164.5 ml Output Urine Total 675 ml 500 ml Laboratory Tests 09/28/17 17:20: Vancomycin Level Trough 17.8H Height (Feet): 5 Height (Inches): 5.00 Weight (Pounds): 350 General Appearance: no apparent distress EENT: PERRL/EOMI Neck: normal alignment Cardiovascular: normal peripheral pulses Respiratory/Chest: no respiratory distress Abdomen: soft, no organomegaly Benito Garcia MD Sep 29, 2017 12:16
--- NOTE | 2017-09-29 12:56 | General Surgery Progress Note ---
General Surgery-Progress Note Subjective Symptoms: improved Additional Comments no acute events. tolerating diet Objective Last 24 Hour Vital Signs Date Time Temp Pulse Resp B/P (MAP) Pulse Ox O2 Delivery O2 Flow Rate FiO2 09/29/17 09:00 Nasal Cannula 3.0 09/29/17 08:00 88 09/29/17 08:00 98.4 83 19 114/66 (82) 100 98.4 09/29/17 04:00 85 09/29/17 04:00 99.0 86 18 103/61 (75) 100 99.0 09/29/17 00:00 98.8 91 18 118/61 (80) 100 98.8 09/29/17 00:00 91 09/28/17 21:00 Nasal Cannula 3.0 09/28/17 20:00 86 09/28/17 20:00 98.8 91 18 110/58 (75) 97 98.8 09/28/17 16:08 82 09/28/17 15:58 97.3 85 18 118/59 (78) 97 97.3 I&O Intake and Output 09/28/17 09/29/17 19:00 07:00 Intake Total 1550 ml 1264.5 ml Output Total 675 ml 500 ml Balance 875 ml 764.5 ml Intake Oral 840 ml 100 ml IV Total 710 ml 1164.5 ml Output Urine Total 675 ml 500 ml Dressing: saturated Wound: clean Drains: none Cardiovascular: RSR Respiratory: clear Abdomen: soft, distended, present bowel sounds Extremities: no cyanosis Laboratory Tests Test 09/28/17 17:20 Vancomycin Level Trough 17.8 ug/mL (5.0-12.0) H Plan Problems: (1) Upper gastrointestinal bleed Assessment & Plan: esophagitis and gastric ulcer. no acute surgical intervention necessary. Tx as per GI. gastric retention could be functional or ileus in nature. resolving will monitor (2) Surgical wound, non healing Assessment & Plan: right hip fx s/p ortho repair. surgical wound site with serosang drainage. odor per report. very large obese lady with lots of subcutaneous fat. CT reviewed. does not seem to be deep infection and more subcutaneous tissue non healing. few nery removed at bedside and seroma allowed to drain. no pus or overly infected tissue noted. cultures pending / reviewed packing and dressings TID and prn saturation ortho evaluation to ensure no deep surgical site Abx as per ID (3) Gastroparesis Assessment & Plan: gastric retention could be functional or ileus in nature. GI rest - await return of bowel function will monitor Additional Comments overall improved. leukocytosis resolved,. wound being cared for okay to d/c from surgical standpoint must follow up with her ortho surgeon as outpatient PEDRO for wound check. okay for packing and dressings TID till then. cont ppi Yadiel Patel Sep 29, 2017 12:56
--- NOTE | 2017-09-29 15:25 | Infectious Diseases Prog Note ---
Assessment/Plan Assessment/Plan 1. E.coli UTI 2. leucocytosis resolved 3. Gastric ulcer 4. diabetes mellitus 5. hypertension 6. seizures 7. Morbid obesity 8. R hip surgical site infection 9. R hip fracture with non-reunion P 1. discontinue Vancomycin & Zosyn 2. start on Rocephin Subjective ROS Limited/Unobtainable: Yes Constitutional: Reports: anorexia Musculoskeletal: Reports: pain, other - controlled Allergies: Coded Allergies: No Known Allergies (Verified , 11/20/06) Objective Vital Signs Last 24 Hour Vital Signs Date Time Temp Pulse Resp B/P (MAP) Pulse Ox O2 Delivery O2 Flow Rate FiO2 09/29/17 12:00 78 09/29/17 12:00 98.0 81 17 118/72 (87) 99 98.0 09/29/17 09:00 Nasal Cannula 3.0 09/29/17 08:00 88 09/29/17 08:00 98.4 83 19 114/66 (82) 100 98.4 09/29/17 04:00 85 09/29/17 04:00 99.0 86 18 103/61 (75) 100 99.0 09/29/17 00:00 98.8 91 18 118/61 (80) 100 98.8 09/29/17 00:00 91 09/28/17 21:00 Nasal Cannula 3.0 09/28/17 20:00 86 09/28/17 20:00 98.8 91 18 110/58 (75) 97 98.8 09/28/17 16:08 82 09/28/17 15:58 97.3 85 18 118/59 (78) 97 97.3 Height (Feet): 5 Height (Inches): 5.00 Weight (Pounds): 350 General Appearance: no acute distress HEENT: mucous membranes moist Respiratory/Chest: lungs clear Cardiovascular: normal rate Abdomen: soft, non tender, splenomegaly, other Extremities: other - edema Neurologic/Psychiatric: alert, responsive Microbiology Date/Time Source Procedure Growth Status 09/27/17 16:10 Wound Gram Stain - Final Resulted 09/27/17 16:10 Wound Culture - Preliminary Morganella Morg Spp Morganii Usual Skin Carrie Resulted Laboratory Tests Test 09/28/17 17:20 Vancomycin Level Trough 17.8 ug/mL (5.0-12.0) H Current Medications Medications (Trade) Dose Ordered Sig/Deborah Route PRN Reason Start Time Stop Time Status Last Admin Dose Admin Acetaminophen (Tylenol) 650 mg Q4H PRN ORAL Pain Scale (3-5) 09/23/17 09:30 10/23/17 09:29 09/29/17 01:49 Chlorhexidine Gluconate (Maryse-Hex 2%) 1 applic DAILY@2000 TOPIC 09/24/17 20:00 10/24/17 19:59 09/28/17 20:09 Dextrose (Dextrose 50%) 25 ml STAT PRN IV Hypoglycemia 09/23/17 09:30 10/23/17 09:29 Dextrose (Dextrose 50%) 50 ml STAT PRN IV Hypoglycemia 09/23/17 09:30 10/23/17 09:29 Dextrose/ Electrolytes 1,000 ml @ 75 mls/hr [id number] IV 09/26/17 20:00 10/24/17 19:59 09/28/17 20:38 Hydralazine HCl (Apresoline) 10 mg Q4H PRN ORAL SBP > 160mmHg 09/24/17 09:00 10/24/17 08:59 Insulin Aspart (NovoLOG) BEFORE MEALS AND HS SUBQ 09/23/17 11:30 10/23/17 11:29 09/28/17 12:01 Levetiracetam (Keppra) 750 mg EVERY 12 HOURS ORAL 09/24/17 21:00 10/23/17 17:59 09/29/17 08:23 Metoclopramide HCl (Reglan) 10 mg EVERY 8 HOURS IVPB 09/28/17 14:00 10/28/17 13:59 09/29/17 05:52 Ondansetron HCl (Zofran) 4 mg Q4H PRN ORAL Nausea & Vomiting 09/23/17 09:30 10/23/17 09:29 Pantoprazole (Protonix) 40 mg EVERY 12 HOURS IVP 09/26/17 09:00 10/23/17 16:59 09/29/17 08:24 Piperacillin Sod/ Tazobactam Sod 3.375 gm/Dextrose 110 ml @ 27.5 mls/hr EVERY 8 HOURS IVPB 09/27/17 14:00 10/02/17 13:59 09/29/17 05:50 Vancomycin HCl (Vanco rx to dose) 1 ea DAILY PRN MISC Per rx protocol 09/27/17 12:45 10/27/17 12:44 Vancomycin HCl/ Dextrose 250 ml @ 125 mls/hr Q12HR IVPB 09/28/17 21:00 10/03/17 20:59 09/29/17 08:23 Zonisamide (Zonegran) 300 mg DAILY ORAL 09/24/17 09:00 10/24/17 08:59 09/29/17 08:23 Ady Campuzano MD Sep 29, 2017 15:25
[2017-09-29] MEDS: D5 1/2NS w/KCl 20mEq 1,000 ML IV SCH (15:28)
--- NOTE | 2017-09-29 15:58 | General Progress Note ---
Assessment/Plan Status: stable, progressing Assessment/Plan anxiety d/o -ativan prn -provided ro/st Subjective Date patient seen: Sep 29, 2017 Neurologic/Psychiatric: Reports: anxiety, depressed, emotional problems Allergies: Coded Allergies: No Known Allergies (Verified , 11/20/06) Objective Last 24 Hour Vital Signs Date Time Temp Pulse Resp B/P (MAP) Pulse Ox O2 Delivery O2 Flow Rate FiO2 09/29/17 12:00 78 09/29/17 12:00 98.0 81 17 118/72 (87) 99 98.0 09/29/17 09:00 Nasal Cannula 3.0 09/29/17 08:00 88 09/29/17 08:00 98.4 83 19 114/66 (82) 100 98.4 09/29/17 04:00 85 09/29/17 04:00 99.0 86 18 103/61 (75) 100 99.0 09/29/17 00:00 98.8 91 18 118/61 (80) 100 98.8 09/29/17 00:00 91 09/28/17 21:00 Nasal Cannula 3.0 09/28/17 20:00 86 09/28/17 20:00 98.8 91 18 110/58 (75) 97 98.8 09/28/17 16:08 82 09/28/17 15:58 97.3 85 18 118/59 (78) 97 97.3 Intake and Output 09/28/17 09/29/17 19:00 07:00 Intake Total 1550 ml 1264.5 ml Output Total 675 ml 500 ml Balance 875 ml 764.5 ml Intake Oral 840 ml 100 ml IV Total 710 ml 1164.5 ml Output Urine Total 675 ml 500 ml Laboratory Tests 09/28/17 17:20: Vancomycin Level Trough 17.8H Height (Feet): 5 Height (Inches): 5.00 Weight (Pounds): 350 General Appearance: no apparent distress, alert Neurologic: oriented x 3, responsive, depressed affect Tor Moura MD Sep 29, 2017 15:58
[2017-09-29 16:00] VITALS: BP 139/69
[2017-09-29] MEDS ORDERED: LORazepam 1mg tab ORAL PRN (16:05)
[2017-09-29] MEDS ORDERED: cefTRIAXone 1 GM in D5W 110 ML IVPB SCH (17:00)
--- NOTE | 2017-09-29 19:48 | General Progress Note ---
Assessment/Plan Assessment/Plan Assessment - UGIB - GERD and gastric ulcer - (R) hip wound complication - gastroparesis - Anemia - Mild transaminitis - obesity Recommendation - continue abx - surgical f/u - follow LFT - PPI - follow labs Subjective Allergies: Coded Allergies: No Known Allergies (Verified , 11/20/06) Subjective above noted patient w/o focal complaints d/w PMD Objective Last 24 Hour Vital Signs Date Time Temp Pulse Resp B/P (MAP) Pulse Ox O2 Delivery O2 Flow Rate FiO2 09/29/17 16:00 97.5 85 17 139/69 (92) 99 97.5 09/29/17 16:00 86 09/29/17 12:00 78 09/29/17 12:00 98.0 81 17 118/72 (87) 99 98.0 09/29/17 09:00 Nasal Cannula 3.0 09/29/17 08:00 88 09/29/17 08:00 98.4 83 19 114/66 (82) 100 98.4 09/29/17 04:00 85 09/29/17 04:00 99.0 86 18 103/61 (75) 100 99.0 09/29/17 00:00 98.8 91 18 118/61 (80) 100 98.8 09/29/17 00:00 91 09/28/17 21:00 Nasal Cannula 3.0 09/28/17 20:00 86 09/28/17 20:00 98.8 91 18 110/58 (75) 97 98.8 Intake and Output 09/28/17 09/29/17 19:00 07:00 Intake Total 1550 ml 1264.5 ml Output Total 675 ml 500 ml Balance 875 ml 764.5 ml Intake Oral 840 ml 100 ml IV Total 710 ml 1164.5 ml Output Urine Total 675 ml 500 ml Height (Feet): 5 Height (Inches): 5.00 Weight (Pounds): 350 Objective WDWN NCAT supple CTA RRR abd soft obesity, (+) (R) hip wound (+) edema Gallo Puentes MD Sep 29, 2017 19:48
[2017-09-29 20:00] VITALS: BP 117/63
[2017-09-29] MEDS: Dyna-Hex 2% Top Sol 2oz TOPIC SCH (20:08)
--- NOTE | 2017-09-29 21:39 | General Progress Note ---
Assessment/Plan Problem List: (1) Morbid obesity ICD Codes: E66.01 - Morbid (severe) obesity due to excess calories SNOMED: 812809661 (2) Upper gastrointestinal bleed ICD Codes: K92.2 - Gastrointestinal hemorrhage, unspecified SNOMED: 81683598 (3) UTI (urinary tract infection) ICD Codes: N39.0 - Urinary tract infection, site not specified SNOMED: 72649325 Qualifiers: Qualified Codes: N39.0 - Urinary tract infection, site not specified Status: progressing Assessment/Plan egd shows severe esophagitis and antral moniter for gi bleeding has slow gi motility s/p debridement of wound ileus secondary to most likely sepsis Subjective ROS Limited/Unobtainable: Yes Allergies: Coded Allergies: No Known Allergies (Verified , 11/20/06) Objective Last 24 Hour Vital Signs Date Time Temp Pulse Resp B/P (MAP) Pulse Ox O2 Delivery O2 Flow Rate FiO2 09/29/17 20:00 98.1 83 18 117/63 (81) 95 98.1 09/29/17 16:00 97.5 85 17 139/69 (92) 99 97.5 09/29/17 16:00 86 09/29/17 12:00 78 09/29/17 12:00 98.0 81 17 118/72 (87) 99 98.0 09/29/17 09:00 Nasal Cannula 3.0 09/29/17 08:00 88 09/29/17 08:00 98.4 83 19 114/66 (82) 100 98.4 09/29/17 04:00 85 09/29/17 04:00 99.0 86 18 103/61 (75) 100 99.0 09/29/17 00:00 98.8 91 18 118/61 (80) 100 98.8 09/29/17 00:00 91 Intake and Output 09/28/17 09/29/17 19:00 07:00 Intake Total 1550 ml 1264.5 ml Output Total 675 ml 500 ml Balance 875 ml 764.5 ml Intake Oral 840 ml 100 ml IV Total 710 ml 1164.5 ml Output Urine Total 675 ml 500 ml Height (Feet): 5 Height (Inches): 5.00 Weight (Pounds): 350 Cardiovascular: normal rate Abdomen: tender Colt Dietrich MD Sep 29, 2017 21:39
[2017-09-30] VITALS: BP 136/80
[2017-09-30] MEDS: D5 1/2NS w/KCl 20mEq 1,000 ML IV SCH (03:46)
[2017-09-30 04:00] VITALS: BP 110/60
[2017-09-30] MEDS: Metoclopramide 10mg/2ml Inj IVPB SCH (05:40)
[2017-09-30] MEDS: NovoLOG Insulin Flexpen SUBQ SCH ×2 (05:41→11:30)
[2017-09-30 08:00] VITALS: BP 123/56
[2017-09-30] MEDS: Pantoprazole Inj IVP SCH (08:30)
[2017-09-30 08:45] LABS: BASOPHILS % (AUTO) 0.3 % (0.0-2.0); EOSINOPHILS % (AUTO) 0.2 % (0.0-3.0); HEMATOCRIT 28.3 % (37.0-47.0); HEMOGLOBIN 8.5 G/DL (12.0-16.0); MEAN CORPUSCULAR VOLUME 84 FL (80-99); MONOCYTES % (AUTO) 8.9 % (1.0-10.0); NEUTROPHILS % (AUTO) 82.6 % (45.0-75.0); PLATELET COUNT 242 K/UL (150-450); RED BLOOD COUNT 3.35 M/UL (4.20-5.40); RED CELL DISTRIBUTION WIDTH 13.9 % (11.6-14.8); WHITE BLOOD COUNT 11.3 K/UL (4.8-10.8)
[2017-09-30 08:48] LABS: ANION GAP 6 mmol/L (5-15); BLOOD UREA NITROGEN 7 mg/dL (7-18); CALCIUM 8.7 MG/DL (8.5-10.1); CARBON DIOXIDE 27 MMOL/L (21-32); CHLORIDE 105 MMOL/L (98-107); CREATININE 1.1 MG/DL (0.55-1.30); POTASSIUM 3.1 MMOL/L (3.5-5.1); SODIUM 138 MMOL/L (136-145)
[2017-09-30 08:53] LABS: ALANINE AMINOTRANSFERASE 28 U/L (12-78); ALBUMIN 1.8 G/DL (3.4-5.0); ALBUMIN/GLOBULIN RATIO 0.4 (1.0-2.7); ALKALINE PHOSPHATASE 82 U/L (46-116); ASPARTATE AMINO TRANSFERASE 31 U/L (15-37); BILIRUBIN,TOTAL 0.2 MG/DL (0.2-1.0)
--- NOTE | 2017-09-30 10:17 | General Surgery Progress Note ---
General Surgery-Progress Note Subjective Additional Comments wound still draining lots of serous fluid Objective Last 24 Hour Vital Signs Date Time Temp Pulse Resp B/P (MAP) Pulse Ox O2 Delivery O2 Flow Rate FiO2 09/30/17 08:00 98.2 82 20 123/56 (78) 95 98.2 09/30/17 04:00 98.3 71 20 110/60 (77) 96 98.3 09/30/17 04:00 84 09/30/17 00:00 81 09/30/17 00:00 97.9 95 20 136/80 (98) 95 97.9 09/29/17 21:00 Room Air 09/29/17 20:00 98.1 83 18 117/63 (81) 95 98.1 09/29/17 20:00 83 09/29/17 16:00 97.5 85 17 139/69 (92) 99 97.5 09/29/17 16:00 86 09/29/17 12:00 78 09/29/17 12:00 98.0 81 17 118/72 (87) 99 98.0 I&O Intake and Output 09/29/17 09/30/17 19:00 07:00 Intake Total 1085 ml 1118.75 ml Output Total 500 ml 751 ml Balance 585 ml 367.75 ml IV Total 735 ml 918.75 ml Other 350 ml 200 ml Output Urine Total 500 ml 750 ml Stool Total 1 ml Dressing: saturated Wound: clean Drains: none Cardiovascular: RSR Respiratory: clear Abdomen: soft, non-tender, present bowel sounds Extremities: no cyanosis Laboratory Tests Test 09/30/17 08:00 White Blood Count 11.3 K/UL (4.8-10.8) H Red Blood Count 3.35 M/UL (4.20-5.40) L Hemoglobin 8.5 G/DL (12.0-16.0) L Hematocrit 28.3 % (37.0-47.0) L Mean Corpuscular Volume 84 FL (80-99) Mean Corpuscular Hemoglobin 25.5 PG (27.0-31.0) L Mean Corpuscular Hemoglobin Concent 30.2 G/DL (32.0-36.0) L Red Cell Distribution Width 13.9 % (11.6-14.8) Platelet Count 242 K/UL (150-450) Mean Platelet Volume 5.5 FL (6.5-10.1) L Neutrophils (%) (Auto) 82.6 % (45.0-75.0) H Lymphocytes (%) (Auto) 8.0 % (20.0-45.0) L Monocytes (%) (Auto) 8.9 % (1.0-10.0) Eosinophils (%) (Auto) 0.2 % (0.0-3.0) Basophils (%) (Auto) 0.3 % (0.0-2.0) Sodium Level 138 MMOL/L (136-145) Potassium Level 3.1 MMOL/L (3.5-5.1) L Chloride Level 105 MMOL/L (98-107) Carbon Dioxide Level 27 MMOL/L (21-32) Anion Gap 6 mmol/L (5-15) Blood Urea Nitrogen 7 mg/dL (7-18) Creatinine 1.1 MG/DL (0.55-1.30) Estimat Glomerular Filtration Rate > 60 mL/min (>60) Glucose Level 102 MG/DL (74-106) Calcium Level 8.7 MG/DL (8.5-10.1) Total Bilirubin 0.2 MG/DL (0.2-1.0) Aspartate Amino Transf (AST/SGOT) 31 U/L (15-37) Alanine Aminotransferase (ALT/SGPT) 28 U/L (12-78) Alkaline Phosphatase 82 U/L (46-116) Total Protein 6.9 G/DL (6.4-8.2) Albumin 1.8 G/DL (3.4-5.0) L Globulin 5.1 g/dL Albumin/Globulin Ratio 0.4 (1.0-2.7) L Vancomycin Level Trough 14.8 ug/mL (5.0-12.0) H Plan Problems: (1) Upper gastrointestinal bleed Assessment & Plan: esophagitis and gastric ulcer. no acute surgical intervention necessary. Tx as per GI. gastric retention could be functional or ileus in nature. resolving will monitor (2) Surgical wound, non healing Assessment & Plan: right hip fx s/p ortho repair. surgical wound site with serosang drainage. odor per report. very large obese lady with lots of subcutaneous fat. CT reviewed. does not seem to be deep infection and more subcutaneous tissue non healing. few nery removed at bedside and seroma allowed to drain. no pus or overly infected tissue noted. cultures pending / reviewed packing and dressings TID and prn saturation ortho evaluation to ensure no deep surgical site Abx as per ID okay to d/c from surgical standpoint must follow up with her ortho surgeon as outpatient PEDRO for wound check. okay for packing and dressings TID till then. cont ppi (3) Gastroparesis Assessment & Plan: gastric retention could be functional or ileus in nature. GI rest - await return of bowel function will monitor Yadiel Patel Sep 30, 2017 10:17
[2017-09-30] MEDS ORDERED: LEVAQUIN750 MG ORAL (10:24)
[2017-09-30] MEDS ORDERED: LEVAQUIN750 MG IVPB (11:41)
--- NOTE | 2017-09-30 11:58 | General Progress Note ---
Assessment/Plan Problem List: (1) Morbid obesity ICD Codes: E66.01 - Morbid (severe) obesity due to excess calories SNOMED: 153515308 (2) Upper gastrointestinal bleed ICD Codes: K92.2 - Gastrointestinal hemorrhage, unspecified SNOMED: 60745211 (3) UTI (urinary tract infection) ICD Codes: N39.0 - Urinary tract infection, site not specified SNOMED: 16883835 Qualifiers: Qualified Codes: N39.0 - Urinary tract infection, site not specified Status: progressing Assessment/Plan cleared by gi for dc jacinto decision per dr eng egd shows severe esophagitis and antral obesity h/h Subjective ROS Limited/Unobtainable: Yes Allergies: Coded Allergies: No Known Allergies (Verified , 11/20/06) Objective Last 24 Hour Vital Signs Date Time Temp Pulse Resp B/P (MAP) Pulse Ox O2 Delivery O2 Flow Rate FiO2 09/30/17 09:00 Room Air 09/30/17 08:00 98.2 82 20 123/56 (78) 95 98.2 09/30/17 04:00 98.3 71 20 110/60 (77) 96 98.3 09/30/17 04:00 84 09/30/17 00:00 81 09/30/17 00:00 97.9 95 20 136/80 (98) 95 97.9 09/29/17 21:00 Room Air 09/29/17 20:00 98.1 83 18 117/63 (81) 95 98.1 09/29/17 20:00 83 09/29/17 16:00 97.5 85 17 139/69 (92) 99 97.5 09/29/17 16:00 86 09/29/17 12:00 78 09/29/17 12:00 98.0 81 17 118/72 (87) 99 98.0 Intake and Output 09/29/17 09/30/17 19:00 07:00 Intake Total 1085 ml 1118.75 ml Output Total 500 ml 751 ml Balance 585 ml 367.75 ml IV Total 735 ml 918.75 ml Other 350 ml 200 ml Output Urine Total 500 ml 750 ml Stool Total 1 ml Laboratory Tests 09/30/17 08:00: White Blood Count 11.3H, Red Blood Count 3.35L, Hemoglobin 8.5L, Hematocrit 28.3L, Mean Corpuscular Volume 84, Mean Corpuscular Hemoglobin 25.5L, Mean Corpuscular Hemoglobin Concent 30.2L, Red Cell Distribution Width 13.9, Platelet Count 242, Mean Platelet Volume 5.5L, Neutrophils (%) (Auto) 82.6H, Lymphocytes (%) (Auto) 8.0L, Monocytes (%) (Auto) 8.9, Eosinophils (%) (Auto) 0.2, Basophils (%) (Auto) 0.3, Sodium Level 138, Potassium Level 3.1L, Chloride Level 105, Carbon Dioxide Level 27, Anion Gap 6, Blood Urea Nitrogen 7, Creatinine 1.1, Estimat Glomerular Filtration Rate > 60, Glucose Level 102, Calcium Level 8.7, Total Bilirubin 0.2, Aspartate Amino Transf (AST/SGOT) 31, Alanine Aminotransferase (ALT/SGPT) 28, Alkaline Phosphatase 82, Total Protein 6.9, Albumin 1.8L, Globulin 5.1, Albumin/Globulin Ratio 0.4L, Vancomycin Level Trough 14.8H Height (Feet): 5 Height (Inches): 5.00 Weight (Pounds): 350 General Appearance: alert Neck: supple Cardiovascular: normal rate Respiratory/Chest: lungs clear Colt Dietrich MD Sep 30, 2017 11:58
[2017-09-30 12:00] VITALS: BP 123/61
--- NOTE | 2017-09-30 12:37 | Physician Query ---
--------- THIS DOCUMENT IS A PERMANENT PART OF THE MEDICAL RECORD --------- PLEASE COMPLETE DOCUMENT BEFORE SIGNING Dear Dr. Puentes Date: 09/30/2017 [employer] Name: Leanna Corrales [employer] Phone No.: [phone] Exercise your independent professional judgment when responding to the query. Questions asked do not imply a particular answer is desired or expected. We greatly appreciate your clarification on this issue. CLINICAL DOCUMENTATION STATES: Patient admitted with "GI Bleeding". Progress notes documented "Upper GI bleeding and Gastric ulcer". CLINICAL FINDINGS SHOW: Endoscopy reports shows 1 cm antrum ulcer. Can you please clarify if there is connection between Upper GI bleeding and gastric ulcer: [] Upper GI bleeding is due to Gastric ulcer [] Upper GI bleeding unspecified [] Other [] Clinically undeterminable Present on admission? [] YES [] NO [] Clinically Undeterminable Please also document in your Progress Notes and/or Discharge Summary and indicate if the condition was present on admission. Tara PINEDA
--- NOTE | 2017-09-30 13:00 | Infectious Diseases Prog Note ---
Assessment/Plan Assessment/Plan 1. E.coli UTI 2. leucocytosis resolved 3. Gastric ulcer 4. diabetes mellitus 5. hypertension 6. seizures 7. Morbid obesity 8. R hip surgical site infection 9. R hip fracture with non-reunion P 1. Agree to discharge to SNF with PO Levaquin for 5 days Subjective ROS Limited/Unobtainable: Yes Constitutional: Reports: other - feels cold Musculoskeletal: Reports: pain, other - R hip Allergies: Coded Allergies: No Known Allergies (Verified , 11/20/06) Objective Vital Signs Last 24 Hour Vital Signs Date Time Temp Pulse Resp B/P (MAP) Pulse Ox O2 Delivery O2 Flow Rate FiO2 09/30/17 09:00 Room Air 09/30/17 08:00 98.2 82 20 123/56 (78) 95 98.2 09/30/17 04:00 98.3 71 20 110/60 (77) 96 98.3 09/30/17 04:00 84 09/30/17 00:00 81 09/30/17 00:00 97.9 95 20 136/80 (98) 95 97.9 09/29/17 21:00 Room Air 09/29/17 20:00 98.1 83 18 117/63 (81) 95 98.1 09/29/17 20:00 83 09/29/17 16:00 97.5 85 17 139/69 (92) 99 97.5 09/29/17 16:00 86 Height (Feet): 5 Height (Inches): 5.00 Weight (Pounds): 350 HEENT: mucous membranes moist Respiratory/Chest: lungs clear Cardiovascular: normal rate Abdomen: soft, non tender Extremities: other - surgical nery of R hip Neurologic/Psychiatric: alert, responsive Microbiology Date/Time Source Procedure Growth Status 09/27/17 16:10 Wound Gram Stain - Final Complete 09/27/17 16:10 Wound Culture - Final Morganella Morg Spp Morganii Usual Skin Carrie Complete Laboratory Tests Test 09/30/17 08:00 White Blood Count 11.3 K/UL (4.8-10.8) H Red Blood Count 3.35 M/UL (4.20-5.40) L Hemoglobin 8.5 G/DL (12.0-16.0) L Hematocrit 28.3 % (37.0-47.0) L Mean Corpuscular Volume 84 FL (80-99) Mean Corpuscular Hemoglobin 25.5 PG (27.0-31.0) L Mean Corpuscular Hemoglobin Concent 30.2 G/DL (32.0-36.0) L Red Cell Distribution Width 13.9 % (11.6-14.8) Platelet Count 242 K/UL (150-450) Mean Platelet Volume 5.5 FL (6.5-10.1) L Neutrophils (%) (Auto) 82.6 % (45.0-75.0) H Lymphocytes (%) (Auto) 8.0 % (20.0-45.0) L Monocytes (%) (Auto) 8.9 % (1.0-10.0) Eosinophils (%) (Auto) 0.2 % (0.0-3.0) Basophils (%) (Auto) 0.3 % (0.0-2.0) Sodium Level 138 MMOL/L (136-145) Potassium Level 3.1 MMOL/L (3.5-5.1) L Chloride Level 105 MMOL/L (98-107) Carbon Dioxide Level 27 MMOL/L (21-32) Anion Gap 6 mmol/L (5-15) Blood Urea Nitrogen 7 mg/dL (7-18) Creatinine 1.1 MG/DL (0.55-1.30) Estimat Glomerular Filtration Rate > 60 mL/min (>60) Glucose Level 102 MG/DL (74-106) Calcium Level 8.7 MG/DL (8.5-10.1) Total Bilirubin 0.2 MG/DL (0.2-1.0) Aspartate Amino Transf (AST/SGOT) 31 U/L (15-37) Alanine Aminotransferase (ALT/SGPT) 28 U/L (12-78) Alkaline Phosphatase 82 U/L (46-116) Total Protein 6.9 G/DL (6.4-8.2) Albumin 1.8 G/DL (3.4-5.0) L Globulin 5.1 g/dL Albumin/Globulin Ratio 0.4 (1.0-2.7) L Vancomycin Level Trough 14.8 ug/mL (5.0-12.0) H Current Medications Medications (Trade) Dose Ordered Sig/Deborah Route PRN Reason Start Time Stop Time Status Last Admin Dose Admin Acetaminophen (Tylenol) 650 mg Q4H PRN ORAL Pain Scale (3-5) 09/23/17 09:30 10/23/17 09:29 09/30/17 05:42 Ceftriaxone Sodium 1 gm/ Dextrose 110 ml @ 220 mls/hr Q24H IVPB 09/29/17 17:00 10/06/17 16:59 09/29/17 17:44 Chlorhexidine Gluconate (Maryse-Hex 2%) 1 applic DAILY@2000 TOPIC 09/24/17 20:00 10/24/17 19:59 09/29/17 20:08 Dextrose (Dextrose 50%) 25 ml STAT PRN IV Hypoglycemia 09/23/17 09:30 10/23/17 09:29 Dextrose (Dextrose 50%) 50 ml STAT PRN IV Hypoglycemia 09/23/17 09:30 10/23/17 09:29 Dextrose/ Electrolytes 1,000 ml @ 75 mls/hr [id number] IV 09/26/17 20:00 10/24/17 19:59 09/30/17 03:46 Hydralazine HCl (Apresoline) 10 mg Q4H PRN ORAL SBP > 160mmHg 09/24/17 09:00 10/24/17 08:59 Insulin Aspart (NovoLOG) BEFORE MEALS AND HS SUBQ 09/23/17 11:30 10/23/17 11:29 09/28/17 12:01 Levetiracetam (Keppra) 750 mg EVERY 12 HOURS ORAL 09/24/17 21:00 10/23/17 17:59 09/30/17 08:30 Lorazepam (Ativan) 1 mg Q6H PRN ORAL For Anxiety 09/29/17 16:05 10/06/17 16:04 Metoclopramide HCl (Reglan) 10 mg EVERY 8 HOURS IVPB 09/28/17 14:00 10/28/17 13:59 09/30/17 05:40 Ondansetron HCl (Zofran) 4 mg Q4H PRN ORAL Nausea & Vomiting 09/23/17 09:30 10/23/17 09:29 09/29/17 20:09 Pantoprazole (Protonix) 40 mg EVERY 12 HOURS IVP 09/26/17 09:00 10/23/17 16:59 09/30/17 08:30 Zonisamide (Zonegran) 300 mg DAILY ORAL 09/24/17 09:00 10/24/17 08:59 09/30/17 08:30 Ady Campuzano MD Sep 30, 2017 13:00
--- NOTE | 2017-09-30 14:03 | General Progress Note ---
Assessment/Plan Assessment/Plan Assessment - UGIB - GERD and gastric ulcer - (R) hip wound complication - gastroparesis - Anemia - Mild transaminitis - obesity Recommendation - continue abx - surgical f/u - follow LFT - PPI - follow labs Subjective Allergies: Coded Allergies: No Known Allergies (Verified , 11/20/06) Subjective above noted patient w/o focal complaints eating OK no N/V no abd pain d/w PMD Objective Last 24 Hour Vital Signs Date Time Temp Pulse Resp B/P (MAP) Pulse Ox O2 Delivery O2 Flow Rate FiO2 09/30/17 12:00 87 09/30/17 12:00 98.0 82 20 123/61 (81) 96 98.0 09/30/17 09:00 Room Air 09/30/17 08:00 98.2 82 20 123/56 (78) 95 98.2 09/30/17 08:00 87 09/30/17 04:00 98.3 71 20 110/60 (77) 96 98.3 09/30/17 04:00 84 09/30/17 00:00 81 09/30/17 00:00 97.9 95 20 136/80 (98) 95 97.9 09/29/17 21:00 Room Air 09/29/17 20:00 98.1 83 18 117/63 (81) 95 98.1 09/29/17 20:00 83 09/29/17 16:00 97.5 85 17 139/69 (92) 99 97.5 09/29/17 16:00 86 Intake and Output 09/29/17 09/30/17 19:00 07:00 Intake Total 1085 ml 1118.75 ml Output Total 500 ml 751 ml Balance 585 ml 367.75 ml IV Total 735 ml 918.75 ml Other 350 ml 200 ml Output Urine Total 500 ml 750 ml Stool Total 1 ml Laboratory Tests 09/30/17 08:00: White Blood Count 11.3H, Red Blood Count 3.35L, Hemoglobin 8.5L, Hematocrit 28.3L, Mean Corpuscular Volume 84, Mean Corpuscular Hemoglobin 25.5L, Mean Corpuscular Hemoglobin Concent 30.2L, Red Cell Distribution Width 13.9, Platelet Count 242, Mean Platelet Volume 5.5L, Neutrophils (%) (Auto) 82.6H, Lymphocytes (%) (Auto) 8.0L, Monocytes (%) (Auto) 8.9, Eosinophils (%) (Auto) 0.2, Basophils (%) (Auto) 0.3, Sodium Level 138, Potassium Level 3.1L, Chloride Level 105, Carbon Dioxide Level 27, Anion Gap 6, Blood Urea Nitrogen 7, Creatinine 1.1, Estimat Glomerular Filtration Rate > 60, Glucose Level 102, Calcium Level 8.7, Total Bilirubin 0.2, Aspartate Amino Transf (AST/SGOT) 31, Alanine Aminotransferase (ALT/SGPT) 28, Alkaline Phosphatase 82, Total Protein 6.9, Albumin 1.8L, Globulin 5.1, Albumin/Globulin Ratio 0.4L, Vancomycin Level Trough 14.8H Height (Feet): 5 Height (Inches): 5.00 Weight (Pounds): 350 Objective WDWN NCAT supple CTA RRR abd soft obesity, (+) (R) hip wound (+) edema Gallo Puentes MD Sep 30, 2017 14:03
[2017-09-30] MEDS ORDERED: Tubing IV Secondary IV ONE (14:49)
[2017-09-30] MEDS ORDERED: NS 275ml ONE (14:49)
--- NOTE | 2017-09-30 16:26 | General Progress Note ---
Assessment/Plan Status: stable Assessment/Plan 1. Anemia due to gastrointestinal bleed. --> Anemia panel has been reviewed, will trend daily. --> Rule out GI bleed. Dr. Puentes, GI Service, consulted. --> Hgb goal >7 2. Coagulopathy. Rule out liver disease. --> The patient to undergo endoscopy. --> Very minor at this time. 3. Pulmonary embolism. Obtain duplex of lower extremities. Rule out blood clots of lower extremities. 4. Transaminitis. 5. Obesity. Recommend weight loss. The time the note was entered does not necessarily correspond to the time the patient was seen. Subjective Date patient seen: Sep 30, 2017 Hematologic/Lymphatic: Reports: anemia Allergies: Coded Allergies: No Known Allergies (Verified , 11/20/06) All Systems: reviewed and negative except above Subjective Pt is stable and medically cleared for dc to snf. No acute distress. Vitals are stable. Objective Last 24 Hour Vital Signs Date Time Temp Pulse Resp B/P (MAP) Pulse Ox O2 Delivery O2 Flow Rate FiO2 09/30/17 12:00 87 09/30/17 12:00 98.0 82 20 123/61 (81) 96 98.0 09/30/17 09:00 Room Air 09/30/17 08:00 98.2 82 20 123/56 (78) 95 98.2 09/30/17 08:00 87 09/30/17 04:00 98.3 71 20 110/60 (77) 96 98.3 09/30/17 04:00 84 09/30/17 00:00 81 09/30/17 00:00 97.9 95 20 136/80 (98) 95 97.9 09/29/17 21:00 Room Air 09/29/17 20:00 98.1 83 18 117/63 (81) 95 98.1 09/29/17 20:00 83 Intake and Output 09/29/17 09/30/17 19:00 07:00 Intake Total 1085 ml 1118.75 ml Output Total 500 ml 751 ml Balance 585 ml 367.75 ml IV Total 735 ml 918.75 ml Other 350 ml 200 ml Output Urine Total 500 ml 750 ml Stool Total 1 ml Laboratory Tests 09/30/17 08:00: White Blood Count 11.3H, Red Blood Count 3.35L, Hemoglobin 8.5L, Hematocrit 28.3L, Mean Corpuscular Volume 84, Mean Corpuscular Hemoglobin 25.5L, Mean Corpuscular Hemoglobin Concent 30.2L, Red Cell Distribution Width 13.9, Platelet Count 242, Mean Platelet Volume 5.5L, Neutrophils (%) (Auto) 82.6H, Lymphocytes (%) (Auto) 8.0L, Monocytes (%) (Auto) 8.9, Eosinophils (%) (Auto) 0.2, Basophils (%) (Auto) 0.3, Sodium Level 138, Potassium Level 3.1L, Chloride Level 105, Carbon Dioxide Level 27, Anion Gap 6, Blood Urea Nitrogen 7, Creatinine 1.1, Estimat Glomerular Filtration Rate > 60, Glucose Level 102, Calcium Level 8.7, Total Bilirubin 0.2, Aspartate Amino Transf (AST/SGOT) 31, Alanine Aminotransferase (ALT/SGPT) 28, Alkaline Phosphatase 82, Total Protein 6.9, Albumin 1.8L, Globulin 5.1, Albumin/Globulin Ratio 0.4L, Vancomycin Level Trough 14.8H Height (Feet): 5 Height (Inches): 5.00 Weight (Pounds): 350 General Appearance: no apparent distress EENT: PERRL/EOMI Neck: normal alignment Cardiovascular: normal peripheral pulses Respiratory/Chest: normal breath sounds, no respiratory distress Abdomen: normal bowel sounds, non tender Benito Garcia MD Sep 30, 2017 16:26
--- NOTE | 2017-09-30 17:58 | General Progress Note ---
Assessment/Plan Assessment/Plan Assessment - UGIB - GERD and gastric ulcer - (R) hip wound complication - gastroparesis - Anemia - Mild transaminitis - obesity Recommendation - continue abx - surgical f/u - follow LFT - PPI - follow labs - d/c planning Subjective Allergies: Coded Allergies: No Known Allergies (Verified , 11/20/06) Subjective above noted patient w/o focal complaints eating OK no N/V no abd pain d/w PMD for discharge today Objective Last 24 Hour Vital Signs Date Time Temp Pulse Resp B/P (MAP) Pulse Ox O2 Delivery O2 Flow Rate FiO2 09/30/17 12:00 87 09/30/17 12:00 98.0 82 20 123/61 (81) 96 98.0 09/30/17 09:00 Room Air 09/30/17 08:00 98.2 82 20 123/56 (78) 95 98.2 09/30/17 08:00 87 09/30/17 04:00 98.3 71 20 110/60 (77) 96 98.3 09/30/17 04:00 84 09/30/17 00:00 81 09/30/17 00:00 97.9 95 20 136/80 (98) 95 97.9 09/29/17 21:00 Room Air 09/29/17 20:00 98.1 83 18 117/63 (81) 95 98.1 09/29/17 20:00 83 Intake and Output 09/29/17 09/30/17 19:00 07:00 Intake Total 1085 ml 1118.75 ml Output Total 500 ml 751 ml Balance 585 ml 367.75 ml IV Total 735 ml 918.75 ml Other 350 ml 200 ml Output Urine Total 500 ml 750 ml Stool Total 1 ml Laboratory Tests 09/30/17 08:00: White Blood Count 11.3H, Red Blood Count 3.35L, Hemoglobin 8.5L, Hematocrit 28.3L, Mean Corpuscular Volume 84, Mean Corpuscular Hemoglobin 25.5L, Mean Corpuscular Hemoglobin Concent 30.2L, Red Cell Distribution Width 13.9, Platelet Count 242, Mean Platelet Volume 5.5L, Neutrophils (%) (Auto) 82.6H, Lymphocytes (%) (Auto) 8.0L, Monocytes (%) (Auto) 8.9, Eosinophils (%) (Auto) 0.2, Basophils (%) (Auto) 0.3, Sodium Level 138, Potassium Level 3.1L, Chloride Level 105, Carbon Dioxide Level 27, Anion Gap 6, Blood Urea Nitrogen 7, Creatinine 1.1, Estimat Glomerular Filtration Rate > 60, Glucose Level 102, Calcium Level 8.7, Total Bilirubin 0.2, Aspartate Amino Transf (AST/SGOT) 31, Alanine Aminotransferase (ALT/SGPT) 28, Alkaline Phosphatase 82, Total Protein 6.9, Albumin 1.8L, Globulin 5.1, Albumin/Globulin Ratio 0.4L, Vancomycin Level Trough 14.8H Height (Feet): 5 Height (Inches): 5.00 Weight (Pounds): 350 Objective WDWN NCAT supple CTA RRR abd soft obesity, (+) (R) hip wound (+) edema Gallo Puentes MD Sep 30, 2017 17:58
--- NOTE | 2017-09-30 23:24 | General Progress Note ---
Assessment/Plan Assessment/Plan anxiety d/o -ativan prn -provided ro/st Subjective Neurologic/Psychiatric: Reports: anxiety, depressed Allergies: Coded Allergies: No Known Allergies (Verified , 11/20/06) Objective Last 24 Hour Vital Signs Date Time Temp Pulse Resp B/P (MAP) Pulse Ox O2 Delivery O2 Flow Rate FiO2 09/30/17 12:00 87 09/30/17 12:00 98.0 82 20 123/61 (81) 96 98.0 09/30/17 09:00 Room Air 09/30/17 08:00 98.2 82 20 123/56 (78) 95 98.2 09/30/17 08:00 87 09/30/17 04:00 98.3 71 20 110/60 (77) 96 98.3 09/30/17 04:00 84 09/30/17 00:00 81 09/30/17 00:00 97.9 95 20 136/80 (98) 95 97.9 Intake and Output 09/29/17 09/30/17 19:00 07:00 Intake Total 1085 ml 1118.75 ml Output Total 500 ml 751 ml Balance 585 ml 367.75 ml IV Total 735 ml 918.75 ml Other 350 ml 200 ml Output Urine Total 500 ml 750 ml Stool Total 1 ml Laboratory Tests 09/30/17 08:00: White Blood Count 11.3H, Red Blood Count 3.35L, Hemoglobin 8.5L, Hematocrit 28.3L, Mean Corpuscular Volume 84, Mean Corpuscular Hemoglobin 25.5L, Mean Corpuscular Hemoglobin Concent 30.2L, Red Cell Distribution Width 13.9, Platelet Count 242, Mean Platelet Volume 5.5L, Neutrophils (%) (Auto) 82.6H, Lymphocytes (%) (Auto) 8.0L, Monocytes (%) (Auto) 8.9, Eosinophils (%) (Auto) 0.2, Basophils (%) (Auto) 0.3, Sodium Level 138, Potassium Level 3.1L, Chloride Level 105, Carbon Dioxide Level 27, Anion Gap 6, Blood Urea Nitrogen 7, Creatinine 1.1, Estimat Glomerular Filtration Rate > 60, Glucose Level 102, Calcium Level 8.7, Total Bilirubin 0.2, Aspartate Amino Transf (AST/SGOT) 31, Alanine Aminotransferase (ALT/SGPT) 28, Alkaline Phosphatase 82, Total Protein 6.9, Albumin 1.8L, Globulin 5.1, Albumin/Globulin Ratio 0.4L, Vancomycin Level Trough 14.8H Height (Feet): 5 Height (Inches): 5.00 Weight (Pounds): 350 Tor Moura MD Sep 30, 2017 23:24
--- NOTE | 2017-10-02 10:37 | Discharge Summary ---
Discharge Summary Discharge Summary _ DATE OF ADMISSION: 09/23/2017 DATE OF DISCHARGE: 09/30/2017 REASON FOR ADMISSION: 50 years old female with past medical history significant for hypertension, diabetes, seizure disorder, history of recent right hip surgery and [facility], presented with episode of upper GI bleeding. Upon evaluation in emergency department patient exhibited fever 99.9 , leukocytosis WBC 17, mild tachypnea. Hemoglobin 9.5. Hematocrit 30.3 Urinalysis with pyuria and bacteria. EKG revealed normal sinus rhythm, troponin was negative. Patient admitted with diagnosis of upper GI bleeding, leukocytosis, urinary tract infection, anemia, morbid obesity CONSULTANTS: ID specialist Dr. Eddy GI specialist Dr. Puentes heel caser/oncologist Dr. Garcia surgery Dr. Patel psychiatrist after [facility] COURSE: Patient admitted. Patient started on the IV fluids and kept nothing by mouth. Patient started on empiric antibiotic. GI specialist seen and evaluated patient. Patient subsequently undergone upper endoscopy which revealed severe esophagitis , 1 cm antral ulcer and significant dark liquid in stomach. Biopsy of stomach showed gastric mucosa with acute and chronic inflammation. Granulation tissue was consistent with ulcer base. No evidence of Helicobacter infection. Biopsy of esophagus revealed acute and chronic inflammation. but was negative for fungus. Patient was placed on PPI. Bowel regimen instituted. Antiemetics provided as needed. Diet started as tolerated. Noted mildly elevated LFT , which were trending down. Hepatitis panel was negative. CT of the abdomen and pelvis revealed no evidence of small or large bowel obstruction. Infectious disease specialist closely followed. Urine culture revealed Escherichia coli. Wound culture from right hip surgical site revealed Morganella. Blood culture were negative . Patient was on IV antibiotics as per infectious disease specialist recommendations. Complete the course with oral antibiotics at the [facility] facility as per ID recommendation. Leukocytosis trending down , no fever. General surgical consult was requested for surgical nonhealing wound, status post right hip surgery. Surgical wound was with serosanguineous drainage CAT scan of the abdomen and pelvis did not revealed evidence of deep infection. Few nery were removed at the bedside. Seroma was allowed to drain. Wound culture revealed Morganella. Patient was on IV antibiotic. Wound care provided as per surgeon's recommendation 3 times a day and as needed. Antibiotics were continued. General surgeon recommended orthopedic surgery evaluation outpatient as soon as possible for wound check to ensure no deep surgical site infection. Blood sugar was closely monitored, stable. Diabetic diet provided. Blood pressure was closely monitored. Seizure precautions were maintained. Keppra continued. Supplemental oxygen and pulmonary toilet provided as needed. Hemoglobin and hematocrit were closely monitored with goal to keep hemoglobin above 7 , remained at the baseline. 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 Anemia workup was consistent with anemia of chronic disease. Per hematology's anemia was due to the gastrointestinal bleeding. Psychiatrist seen and evaluated patient, and diagnosed patient with the anxiety disorder. Reality orientation supportive therapy provided. Anxiolytics was on board as needed. Patient clinically improved, no further episodes of bleeding. Leukocytosis trending down, afebrile. Patient was stable for discharge to [facility] facility for continuation of care FINAL DIAGNOSES: Upper GI bleeding Status post EGD on Severe esophagitis Gastric ulcer GERD Leukocytosis Possible sepsis ( present on admission) Escherichia coli UTI Right hip surgical site infection with Morganella Anemia of chronic disease Anxiety disorder Diabetes mellitus Hypertension Seizure disorder Morbid obesity Mild transaminitis Gastroparesis DISCHARGE MEDICATIONS: See Medication Reconciliation list. DISCHARGE INSTRUCTIONS: Patient was discharged to [facility]. Follow up with medical doctor at the facility. Patient was advised to arrange outpatient follow-up with her orthopedic surgeon as soon as possible. I have been assigned to dictate discharge summary for this account. I was not involved in the patient's management. Dorcas Riley NP Oct 02, 2017 10:37
--- NOTE | 2017-10-24 10:03 | Diagnostic Imaging Report ---
Indication: Trauma pain Technique: XRAY Chest 1v Comparison: 10/19/2008 Findings: Limited exam due to underpenetration, likely related to body habitus. Cardiomegaly. There is pulmonary vascular congestion/mild interstitial edema. No definite focal consolidation, effusion or pneumothorax. Degenerative changes are noted in the spine. No acute osseous abnormality. Impression: Cardiomegaly with pulmonary vascular congestion/mild interstitial edema.
== END 2017-09-30 14:50 | DRG 862 ==
LOC: EDBD 04:47 → EMR 05:01 → 2W 05:42 → EDBEDREQ 06:17 → 2W 09-24 22:03 → 2E 09-25 21:15
PROC: 02HV33Z Insertion of Infusion Device into Superior Vena Cava, Percutaneous Approach (ICD-10-PCS; 2017-09-24)
PROC: 0DB78ZX Excision of Stomach, Pylorus, Via Natural or Artificial Opening Endoscopic, Diagnostic (ICD-10-PCS; principal; 2017-09-25 11:30)
DX: T81.4XXA Infection following a procedure, initial encounter (principal); A41.9 Sepsis, unspecified organism; K25.4 Chronic or unspecified gastric ulcer with hemorrhage; N39.0 Urinary tract infection, site not specified; S72.91XK Unspecified fracture of right femur, subsequent encounter for closed fracture with nonunion; Z68.43 Body mass index [BMI] 50.0-59.9, adult; Y83.8 Other surgical procedures as the cause of abnormal reaction of the patient, or of later complication, without mention of misadventure at the time of the procedure; E11.9 Type 2 diabetes mellitus without complications; Z86.711 Personal history of pulmonary embolism; Z79.4 Long term (current) use of insulin; D50.0 Iron deficiency anemia secondary to blood loss (chronic); G40.909 Epilepsy, unspecified, not intractable, without status epilepticus; E66.01 Morbid (severe) obesity due to excess calories; K31.84 Gastroparesis; K20.9 Esophagitis, unspecified; K21.9 Gastro-esophageal reflux disease without esophagitis; R74.0 Nonspecific elevation of levels of transaminase and lactic acid dehydrogenase [LDH]; B96.20 Unspecified Escherichia coli [E. coli] as the cause of diseases classified elsewhere; F41.9 Anxiety disorder, unspecified; D63.8 Anemia in other chronic diseases classified elsewhere; B96.89 Other specified bacterial agents as the cause of diseases classified elsewhere
CPT/HCPCS: 36415; 36569; 71045; 74018; 74176; 76937; 80048; 80053; 80202; 80299; 81003; 82728; 82746; 82962; 83010; 83540; 83550; 83615; 83690; 83921; 84443; 84484; 85007; 85025; 85044; 85384; 85610; 85730; 86705; 86709; 86803; 86850; 86900; 86901; 87040; 87070; 87081; 87086; 87181; 87205; 87340; 93005; 94003; 94150; 99285; J1815; J2405; J2765; J8499